=== PATIENT | male | born 1955 | race Caucasian/White ===

== ENCOUNTER 2016-11-02 22:32 | Emergency (ER) | payer MEDICARE, OTHER ==
[2016-11-02 23:46] LABS: BASO # 0.1 K/mm3 (0.0-0.2); BASO % 0.7 % (0.0-1.0); EOS # 0.6 K/mm3 (0.0-0.50); EOS % 4.5 % (0.0-3.0); LARGE UNSTAINED CELL # 0.2 K/mm3 (0.0-0.4); LARGE UNSTAINED CELL % 1.4 % (0.0-4.0); LYMPH # 1.8 K/mm3 (1.5-4.5); LYMPH % 13.1 % (24.0-44.0); MEAN CORPUSCULAR HEMOGLOBIN 31.1 pg (27.0-33.0); MEAN CORPUSCULAR HGB CONC 34.8 g/dl (32.0-36.5); MEAN CORPUSCULAR VOLUME 89.4 fl (80.0-96.0); MONO # 0.9 K/mm3 (0.0-0.8); MONO % 6.9 % (0.0-5.0); NEUTROPHILS # 9.1 K/mm3 (1.8-7.7); NEUTROPHILS % 73.3 % (36.0-66.0); PLATELET COUNT, AUTOMATED 304 k/mm3 (150-450); RED CELL DISTRIBUTION WIDTH 12.8 % (11.5-14.5); WHITE BLOOD COUNT 12.4 K/mm3 (4.0-10.0)
[2016-11-03 00:11] LABS: ANION GAP 8 MEQ/L (8-16); BLOOD UREA NITROGEN 12 MG/DL (7-18); CALCIUM LEVEL 8.4 MG/DL (8.8-10.2); CARBON DIOXIDE LEVEL 27 MEQ/L (21-32); CHLORIDE LEVEL 104 MEQ/L (98-107); CREATININE FOR GFR 1.05 MG/DL (0.70-1.30); GLOMERULAR FILTRATION RATE > 60.0 (>49); GLUCOSE, FASTING 112 MG/DL (80-110); POTASSIUM SERUM 3.9 MEQ/L (3.5-5.1); SODIUM LEVEL 139 MEQ/L (136-145)
[2016-11-03] MEDS ORDERED: KETOROLAC 30 MG/ML VIAL (J1885) As Ordered ONE (04:02)
--- NOTE | 2016-11-03 04:28 | EDDOCDS ---
Nurse's Notes [facility] Name: Mark Recinos Age: 61 yrs Sex: Male : 1955 Arrival Date: 11/02/2016 Time: 22:32 Bed 12 Private MD: NO PRIMARY PHYSICIAN, . Diagnosis: Gout;Chest pain, unspecified Presentation: 11/02 22:39 Presenting complaint: Patient states: left wrist started to get swollen this afternoon dsf and CP started tonight. Adult Sepsis Screening: The patient does not have new or worsening altered mentation. Patient's respiratory rate is less than 22. Systolic blood pressure is greater than 100. Patient has a qSOFA score of 0- Negative Sepsis Screen. Suicide/Homicide risk assessment- the patient denies having any suicidal and/or homicidal ideations and does not present with any other emotional, behavioral or mental health complaints. Status: Patient is not a member services coordinator or dependent. Transition of care: patient was not received from another setting of care. 22:39 Acuity: HARINI Level 3 dsf 22:39 Method Of Arrival: Walkin/Carried/Asstd dsf Triage Assessment: 22:41 General: Appears in no apparent distress, Behavior is appropriate for age, cooperative. dsf Pain: Location: dorsal aspect of left wrist Pain currently is 10 out of 10 on a pain scale. Quality of pain is described as throbbing. Pt Declines HIV testing. Cardiovascular: Chest pain is described as Pain is 3 out of 10 on a pain scale. quality is stabbing, is located in substernal area radiates Does not radiate. began 2 hours prior to arrival. Musculoskeletal: Range of motion limited in left wrist Swelling present in dorsal aspect of left wrist. Historical: - Allergies: PENICILLINS (vomit blood ); - Home Meds: 1. pt does not know what he takes - PMHx: Arthritis; back pain; - PSHx: none; - Social history: Smoking status: Chewing Tobacco No barriers to communication noted, The patient speaks fluent Khmer, Speaks appropriately for age. - Family history: Not pertinent. - : The pt / caregiver states he / she is not on anticoagulants. Home medication list is obtained from the patient. - Exposure Risk Screening:: None identified. Screenin:57 Screening information is obtained from the patient. Fall risk: No risks identified. mlc Assistance ADL's: requires no assistance with activities of daily living. Abuse/DV Screen: The patient / caregiver reports he/she is: not in a situation that causes fear, pain or injury. Nutritional screening: No deficits noted. Advance Directives: Currently, there is no health care proxy. There is no Power of Vice President Of News. home support is adequate. Assessment: 22:57 General: Appears in no apparent distress, uncomfortable, unkempt, Behavior is mlc cooperative. Pain: Location: left antecubital area, dorsal aspect of left forearm and left wrist Pain currently is 10 out of 10 on a pain scale. Neurological: Level of Consciousness is awake, alert, Oriented to person, place, time. Cardiovascular: Capillary refill < 3 seconds in right in left fingers Heart tones S1 S2 present Rhythm is regular Chest pain is denied. Respiratory: Airway is patent Respiratory effort is even, unlabored, Respiratory pattern is regular, Breath sounds are clear bilaterally. Derm: Skin is normal. Musculoskeletal: Capillary refill < 3 seconds Swelling present in left wrist. 23:39 Reassessment: Patient appears in no apparent distress at this time. Patient states mlc symptoms have not improved. 11/03 01:18 Reassessment: Patient appears in no apparent distress at this time. Patient states mlc symptoms have not improved. pt resting comfortably in bed, resp easy/unlabored. . 02:20 Reassessment: Patient appears in no apparent distress at this time. pt resting with mlc eyes closed, resp easy/unlabored. . 03:30 Reassessment: Patient appears in no apparent distress at this time. no changes since mlc prior. 04:05 General: Appears in no apparent distress, comfortable, to be sleeping. awakens easily. mlc resp easy/unlabored. pt medicated per order. 04:25 General: Appears in no apparent distress, comfortable, Behavior is cooperative. Pain: mlc Pain currently is 7 out of 10 on a pain scale. Neurological: Level of Consciousness is awake, alert, obeys commands, Oriented to person, place, time. Respiratory: Airway is patent Respiratory effort is even, unlabored, Respiratory pattern is regular. Vital Signs: 11/02 22:36 BP 144 / 88; Pulse 83; Resp 18 S; Temp 96.3(O); Pulse Ox 100% on R/A; Weight 99.79 kg gr2 (R); Height 5 ft. 9 in. (175.26 cm) (R); Pain 10/10; 22:54 BP 141 / 94 (auto/); mlc 22:58 Pulse 82 MON; Pulse Ox 96% ; mlc 23:36 BP 140 / 82 (auto/); mlc 23:36 Pulse 74 MON; Pulse Ox 92% ; mlc 11/03 00:06 Pulse 72 MON; Pulse Ox 94% ; mlc 00:06 BP 128 / 80 (auto/); mlc 00:36 Pulse 74 MON; Pulse Ox 94% ; mlc 00:36 BP 125 / 78 (auto/); mlc 01:06 Pulse 70 MON; Pulse Ox 94% ; mlc 01:06 BP 123 / 79 (auto/); mlc 01:18 Pulse 70 MON; Pulse Ox 94% ; mlc 01:36 BP 120 / 79 (auto/); mlc 01:36 Pulse 76 MON; Pulse Ox 94% ; mlc 02:06 BP 113 / 76 (auto/); mlc 02:06 Pulse 70 MON; Pulse Ox 94% ; mlc 02:36 BP 113 / 76 (auto/); mlc 02:36 Pulse 76 MON; Pulse Ox 94% ; mlc 03:05 Pulse 70 MON; Pulse Ox 94% ; mlc 03:06 BP 121 / 76 (auto/); mlc 03:36 BP 115 / 81 (auto/); mlc 03:36 Pulse 76 MON; Pulse Ox 96% ; mlc 03:41 Pulse 74 MON; Pulse Ox 95% ; mlc 03:41 BP 117 / 74 (auto/); mlc 03:43 BP 117 / 74; Pulse 73; Resp 18; Temp 98.3(O); Pulse Ox 96% on R/A; Pain 10/10; dianna 04:05 Pulse 64 MON; Pulse Ox 95% ; mlc 04:25 BP 122 / 75; Pulse 68; Resp 16; Temp 98.4; Pulse Ox 95% ; Pain 7/10; mlc 11/02 22:36 Body Mass Index 32.49 (99.79 kg, 175.26 cm) gr2 Vitals: 11/02 22:36 Log In Time: November 02, 2016 at 22:36. gr2 ED Course: 22:36 Patient visited by Devin Beebe. gr2 22:36 NO PRIMARY PHYSICIAN, . is Private Physician. gr2 22:36 Patient moved to Waiting gr2 22:37 Patient visited by Devin Beebe. gr2 22:37 Patient moved to Pre RCE gr2 22:40 Triage Initiated dsf 22:46 Sri Castillo RN is Primary Nurse. dsf 22:46 Patient moved to 12 dsf 22:53 Justin Carlos DO is Attending Physician. mm11 22:53 Patient visited by Justin Carlos DO. mm11 22:58 Patient visited by Sri Castillo RN. mlc 23:16 Patient visited by Justin Carlos DO. mm11 23:35 Patient visited by Emerald Escamilla PCA. dianna 23:35 Pt greeted and oriented to ED. Patient advised of names of staff involved in care, dianna location of call cano, wait times and NPO status. Patient has correct armband on for positive identification. Placed in gown. Bed in low position. Call light in reach. Side rails up X2. real estate executive assistant on. Pulse ox on. NIBP on. 23:35 EKG done. (by ED staff). Reviewed by Justin Carlos DO. dianna 23:39 Basic Metabolic Profile Sent. mlc 23:39 CBC with Diff Sent. mlc 23:39 Cardiac Injury Profile Sent. mlc 23:39 Troponin Sent. mlc 23:40 Patient visited by Sri Castillo RN. mlc 23:40 The patient / caregiver is instructed regarding the plan of care and ED course. mlc 23:40 Inserted saline lock: 20 gauge in right antecubital area and blood collected. The [facility] patient tolerated the procedure well. 11/03 00:58 Patient visited by Emerald Escamilla PCA. dianna 01:20 Patient visited by Sri Castillo RN. mlc 01:24 [facility] Payment Agreement was scanned into [employer] and attached to record. gjb 02:52 Patient visited by Justin Carlos DO. mm11 03:16 Christiano Calderon MD is Referral Physician. mm11 03:43 Patient visited by Emerald Escamilla PCA. dianna 04:06 Patient visited by Sri Castillo RN. mlc 04:25 Discontinued IV lock intact, bleeding controlled, pressure dressing applied, No mlc redness/swelling at site. No procedures done that require assistance. Administered Medications: 04:05 Drug: ketorolac 30 mg [ketorolac 30 mg/mL (1 mL) injection solution (1 mL)] Route: IVP; mlc Site: right antecubital; 04:24 Follow up: Response: Pain is decreased mlc Order Results: Lab Order: Basic Metabolic Profile; SPEC11/02/16 23:37 Test: GLUCOSE, FASTING; Value: 112; Range: 80-110; Abnormal: Above high normal; Units: MG/DL; Status: F Test: BLOOD UREA NITROGEN; Value: 12; Range: 7-18; Units: MG/DL; Status: F Test: CREATININE FOR GFR; Value: 1.05; Range: 0.70-1.30; Units: MG/DL; Status: F Test: GLOMERULAR FILTRATION RATE; Value: > 60.0; Range: >49; Status: F Test: SODIUM LEVEL; Value: 139; Range: 136-145; Units: MEQ/L; Status: F Test: POTASSIUM SERUM; Value: 3.9; Range: 3.5-5.1; Units: MEQ/L; Status: F Test: CHLORIDE LEVEL; Value: 104; Range: 98-107; Units: MEQ/L; Status: F Test: CARBON DIOXIDE LEVEL; Value: 27; Range: 21-32; Units: MEQ/L; Status: F Test: ANION GAP; Value: 8; Range: 8-16; Units: MEQ/L; Status: F Test: CALCIUM LEVEL; Value: 8.4; Range: 8.8-10.2; Abnormal: Below low normal; Units: MG/DL; Status: F Test Note: ; Units are mL/min/1.73 m2 Chronic Kidney Disease Staging per NKF: Stage I & II GFR >=60 Normal to Mildly Decreased Stage III GFR 30-59 Moderately Decreased Stage IV GFR 15-29 Severely Decreased Stage V GFR <15 Very Little GFR Left ESRD GFR <15 on MANAGER OF EXHIBITIONS AND COLLECTIONS Lab Order: CBC with Diff; SPEC11/02/16 23:37 Test: WHITE BLOOD COUNT; Value: 12.4; Range: 4.0-10.0; Abnormal: Above high normal; Units: K/mm3; Status: F Test: RED BLOOD COUNT; Value: 5.02; Range: 4.30-6.10; Units: M/mm3; Status: F Test: HEMOGLOBIN; Value: 15.6; Range: 14.0-18.0; Units: g/dl; Status: F Test: HEMATOCRIT; Value: 44.8; Range: 42.0-52.0; Units: %; Status: F Test: MEAN CORPUSCULAR VOLUME; Value: 89.4; Range: 80.0-96.0; Units: fl; Status: F Test: MEAN CORPUSCULAR HEMOGLOBIN; Value: 31.1; Range: 27.0-33.0; Units: pg; Status: F Test: MEAN CORPUSCULAR HGB CONC; Value: 34.8; Range: 32.0-36.5; Units: g/dl; Status: F Test: RED CELL DISTRIBUTION WIDTH; Value: 12.8; Range: 11.5-14.5; Units: %; Status: F Test: PLATELET COUNT, AUTOMATED; Value: 304; Range: 150-450; Units: k/mm3; Status: F Test: NEUTROPHILS %; Value: 73.3; Range: 36.0-66.0; Abnormal: Above high normal; Units: %; Status: F Test: LYMPH %; Value: 13.1; Range: 24.0-44.0; Abnormal: Below low normal; Units: %; Status: F Test: MONO %; Value: 6.9; Range: 0.0-5.0; Abnormal: Above high normal; Units: %; Status: F Test: EOS %; Value: 4.5; Range: 0.0-3.0; Abnormal: Above high normal; Units: %; Status: F Test: BASO %; Value: 0.7; Range: 0.0-1.0; Units: %; Status: F Test: LARGE UNSTAINED CELL %; Value: 1.4; Range: 0.0-4.0; Units: %; Status: F Test: NEUTROPHILS #; Value: 9.1; Range: 1.8-7.7; Abnormal: Above high normal; Units: K/mm3; Status: F Test: LYMPH #; Value: 1.8; Range: 1.5-4.5; Units: K/mm3; Status: F Test: MONO #; Value: 0.9; Range: 0.0-0.8; Abnormal: Above high normal; Units: K/mm3; Status: F Test: EOS #; Value: 0.6; Range: 0.0-0.50; Abnormal: Above high normal; Units: K/mm3; Status: F Test: BASO #; Value: 0.1; Range: 0.0-0.2; Units: K/mm3; Status: F Test: LARGE UNSTAINED CELL #; Value: 0.2; Range: 0.0-0.4; Units: K/mm3; Status: F Lab Order: Cardiac Injury Profile; [facility] 11/02/16 23:37 Test: CPK CREATINE PHOSPHOKINASE; Value: 51; Range: 39-308; Units: U/L; Status: F Test: CK-MB VALUE MASS; Value: 1.8; Range: 0.0-3.6; Units: NG/ML; Status: F Test: MB/CK RELATIVE INDEX; Value: 3.52; Range: < OR =4; Status: F Test Note: ; DIAGNOSIS CRITERIA MMB ng/ml Relative Index (RI) NON-AMI < or = 5 N/A LOREDO ZONE > 5 < or = 4 AMI > 5 > 4 Lab Order: Troponin; [facility] 11/02/16 23:37 Test: TROPONIN I; Value: < 0.02; Range: < 0.10; Units: NG/ML; Status: F Test Note: ; Troponin I Reference Interval for [employer] LOCI: 99th Percentile= 0.00-0.045 ng/ml Risk Stratification: <= 0.10 ng/ml Decreased Risk for Adverse Clinical Events. 0.10-1.50 ng/ml Increased Risk for Adverse Clinical Events. Evaluation of additional criterion and/or repeat testing in 2-6 hours is suggested to rule out myocardial damage. >= 1.50 ng/ml Indicative of Myocardial Injury. Outcome: 03:17 Discharge ordered by Provider. mm11 04:25 Discharge Assessment: Patient awake, alert and oriented x 3. No cognitive and/or mlc functional deficits noted. Patient verbalized understanding of disposition instructions. patient administered narcotics - no. The following High Risk Discharge criteria are identified: None. Discharged to home ambulatory. Condition: good Condition: stable. Discharge instructions given to patient, Instructed on discharge instructions, follow up and referral plans. medication usage, Demonstrated understanding of instructions, medications, Pt was receptive of discharge instructions/ teaching. Prescriptions given X 2. No special radiology studies were completed. Property sent home with patient. 04:[address] [facility] Signatures: Justin Carlos DO DO mm11 Emerald Escamilla, SHOE CEMENTER SHOE CEMENTER Zenaida Oseguera,RN RN Devin Miner gr2 Sri Castillo RN RN Chelita Sinclair MTDD
--- NOTE | 2016-11-03 04:28 | EDDOCDS ---
Physician Documentation [facility] Name: Mark Recinos Age: 61 yrs Sex: Male : 1955 Arrival Date: 11/02/2016 Time: 22:32 Bed 12 Private MD: NO PRIMARY PHYSICIAN, . Disposition: 11/03/16 03:17 Discharged to Home/Self Care. Impression: Gout, Chest pain, unspecified. - Condition is Stable. - Discharge Instructions: Gout, Gout, Blda-ly-Grne. - Prescriptions for Colchicine 0.6 mg Oral Tablet - take 1 tablet by ORAL route as directed take 2 tabs at gout onset, then 1 tab q1h prn x 2 doses maximum; 30 tablet. indomethacin 50 mg Oral Capsule - take 1 capsule by ORAL route 3 times per day with food; 30 capsule. - Medication Reconciliation, Local Pharmacy Hours form. - Follow up: Christiano Calderon MD; When: Call to arrange an appointment; Reason: Continuance of care. - Problem is an acute exacerbation. - Symptoms have improved. Historical: - Allergies: PENICILLINS (vomit blood ); - Home Meds: 1. pt does not know what he takes - PMHx: Arthritis; back pain; - PSHx: none; - Social history: Smoking status: Chewing Tobacco No barriers to communication noted, The patient speaks fluent Angolan, Speaks appropriately for age. - Family history: Not pertinent. - : The pt / caregiver states he / she is not on anticoagulants. Home medication list is obtained from the patient. - Exposure Risk Screening:: None identified. Vital Signs: 11/02 22:36 BP 144 / 88; Pulse 83; Resp 18 S; Temp 96.3(O); Pulse Ox 100% on R/A; Weight 99.79 kg / gr2 220 lbs (R); Height 5 ft. 9 in. (175.26 cm) (R); Pain 10/10; 22:54 BP 141 / 94 (auto/); mlc 22:58 Pulse 82 MON; Pulse Ox 96% ; mlc 23:36 BP 140 / 82 (auto/); mlc 23:36 Pulse 74 MON; Pulse Ox 92% ; mlc 11/03 00:06 Pulse 72 MON; Pulse Ox 94% ; mlc 00:06 BP 128 / 80 (auto/); mlc 00:36 Pulse 74 MON; Pulse Ox 94% ; mlc 00:36 BP 125 / 78 (auto/); mlc 01:06 Pulse 70 MON; Pulse Ox 94% ; mlc 01:06 BP 123 / 79 (auto/); mlc 01:18 Pulse 70 MON; Pulse Ox 94% ; mlc 01:36 BP 120 / 79 (auto/); mlc 01:36 Pulse 76 MON; Pulse Ox 94% ; mlc 02:06 BP 113 / 76 (auto/); mlc 02:06 Pulse 70 MON; Pulse Ox 94% ; mlc 02:36 BP 113 / 76 (auto/); mlc 02:36 Pulse 76 MON; Pulse Ox 94% ; mlc 03:05 Pulse 70 MON; Pulse Ox 94% ; mlc 03:06 BP 121 / 76 (auto/); mlc 03:36 BP 115 / 81 (auto/); mlc 03:36 Pulse 76 MON; Pulse Ox 96% ; mlc 03:41 Pulse 74 MON; Pulse Ox 95% ; mlc 03:41 BP 117 / 74 (auto/); mlc 03:43 BP 117 / 74; Pulse 73; Resp 18; Temp 98.3(O); Pulse Ox 96% on R/A; Pain 10/10; dianna 04:05 Pulse 64 MON; Pulse Ox 95% ; mlc 04:25 BP 122 / 75; Pulse 68; Resp 16; Temp 98.4; Pulse Ox 95% ; Pain 7/10; mlc 11/02 22:36 Body Mass Index 32.49 (99.79 kg, 175.26 cm) gr2 MDM: 11/02 23:17 Bracelet Former/Pulse Ox/q 30 min VS ordered. mm11 23:17 IV Saline Lock ordered. mm11 23:17 Rhythm Strip to chart ordered. mm11 23:17 Undress patient appropriately for examination ordered. mm11 23:17 Chest, 2 View (pa\E\lat) Ordered. EDMS 23:17 Basic Metabolic Profile Ordered. EDMS 23:17 CBC with Diff Ordered. EDMS 23:17 Cardiac Injury Profile Ordered. EDMS 23:17 Troponin Ordered. EDMS 23:18 ECG WITH READING ER PHYS+CARDIAG ordered. EDMS 23:19 Hand, Complete Ordered. EDMS 11/03 00:00 Financial registration complete. pm4 00:29 Basic Metabolic Profile Reviewed. mm11 00:29 CBC with Diff Reviewed. mm11 00:29 Cardiac Injury Profile Reviewed. mm11 00:29 Troponin Reviewed. mm11 01:24 [facility] Payment Agreement was scanned into [employer] and attached to record. george 03:18 ketorolac 30 mg IVP once ordered. mm11 04:05 ketorolac 30 mg IVP once ordered. mlc Administered Medications: 04:05 Drug: ketorolac 30 mg [ketorolac 30 mg/mL (1 mL) injection solution (1 mL)] Route: IVP; mlc Site: right antecubital; 04:24 Follow up: Response: Pain is decreased [facility] Signatures: Dispatcher [employer] EDMS Justin Carlos, DO mm11 Zenaida SilverRN RN dsSri Gonzalez RN RN Chelita Sinclairb Perico Bennett, Reg Reg pm4 The chart was reviewed and I authenticate all verbal orders and agree with the evaluation and treatment provided.Attachments: 01:24 [facility] Payment Agreement jia MTDD
--- NOTE | 2016-11-03 08:31 | ECGEPIP ---
Stationary ECG Study [facility] - ED Test Date: 2016-11-02 Pat Name: JACKY TERRELL Department: Room: - Gender: M Test Consultant: JenkinsB: 1955 Requested By: BRIEN Shepard Order Number: [id number] Reading MD: Teja Sequeira Measurements Intervals [place] Rate: 71 P: 33 [place]: 136 QRS: -17 QRSD: 94 T: 39 QT: 398 QTc: 435 Interpretive Statements SINUS RHYTHM NO PRIORS Electronically Signed On 11-03-2016 8:31:04 EST by Teja Sequeira
--- NOTE | 2016-11-03 08:32 | REP ---
Clinical: Chest pain . Comparison: None . Technique: PA view only . Findings: The mediastinum and cardiac silhouette are normal. The lung walters are clear and without acute consolidation, effusion, or pneumothorax. The skeletal structures are intact and normal. Impression: 1. No acute cardiopulmonary process. Signed by Florin Payton MD 11/03/2016 08:23 A
--- NOTE | 2016-11-03 08:47 | REP ---
Clinical: Trauma. Deformity/Swelling. Technique: AP, lateral, bilateral oblique views left hand. Findings: The osseous structures and joint spaces are intact and normal. There is no evidence for acute fracture or dislocation. Surrounding soft tissues are unremarkable. No subcutaneous emphysema or radiodense foreign body. Impression: No acute fracture or dislocation. Signed by Florin Payton MD 11/03/2016 08:39 A
--- NOTE | 2016-11-05 05:28 | EDDOCDS ---
Physician Documentation [facility] Name: Mark Recinos Age: 61 yrs Sex: Male : 1955 Arrival Date: 11/02/2016 Time: 22:32 Bed 12 Private MD: NO PRIMARY PHYSICIAN, . Disposition: 11/03/16 03:17 Discharged to Home/Self Care. Impression: Gout, Chest pain, unspecified. - Condition is Stable. - Discharge Instructions: Gout, Gout, Qecc-up-Npau. - Prescriptions for Colchicine 0.6 mg Oral Tablet - take 1 tablet by ORAL route as directed take 2 tabs at gout onset, then 1 tab q1h prn x 2 doses maximum; 30 tablet. indomethacin 50 mg Oral Capsule - take 1 capsule by ORAL route 3 times per day with food; 30 capsule. - Medication Reconciliation, Local Pharmacy Hours form. - Follow up: Christiano Calderon MD; When: Call to arrange an appointment; Reason: Continuance of care. - Problem is an acute exacerbation. - Symptoms have improved. Historical: - Allergies: PENICILLINS (vomit blood ); - Home Meds: 1. pt does not know what he takes - PMHx: Arthritis; back pain; - PSHx: none; - Social history: Smoking status: Chewing Tobacco No barriers to communication noted, The patient speaks fluent Tuvaluan, Speaks appropriately for age. - Family history: Not pertinent. - : The pt / caregiver states he / she is not on anticoagulants. Home medication list is obtained from the patient. - Exposure Risk Screening:: None identified. Vital Signs: 11/02 22:36 BP 144 / 88; Pulse 83; Resp 18 S; Temp 96.3(O); Pulse Ox 100% on R/A; Weight 99.79 kg / gr2 220 lbs (R); Height 5 ft. 9 in. (175.26 cm) (R); Pain 10/10; 22:54 BP 141 / 94 (auto/); mlc 22:58 Pulse 82 MON; Pulse Ox 96% ; mlc 23:36 BP 140 / 82 (auto/); mlc 23:36 Pulse 74 MON; Pulse Ox 92% ; mlc 11/03 00:06 Pulse 72 MON; Pulse Ox 94% ; mlc 00:06 BP 128 / 80 (auto/); mlc 00:36 Pulse 74 MON; Pulse Ox 94% ; mlc 00:36 BP 125 / 78 (auto/); mlc 01:06 Pulse 70 MON; Pulse Ox 94% ; mlc 01:06 BP 123 / 79 (auto/); mlc 01:18 Pulse 70 MON; Pulse Ox 94% ; mlc 01:36 BP 120 / 79 (auto/); mlc 01:36 Pulse 76 MON; Pulse Ox 94% ; mlc 02:06 BP 113 / 76 (auto/); mlc 02:06 Pulse 70 MON; Pulse Ox 94% ; mlc 02:36 BP 113 / 76 (auto/); mlc 02:36 Pulse 76 MON; Pulse Ox 94% ; mlc 03:05 Pulse 70 MON; Pulse Ox 94% ; mlc 03:06 BP 121 / 76 (auto/); mlc 03:36 BP 115 / 81 (auto/); mlc 03:36 Pulse 76 MON; Pulse Ox 96% ; mlc 03:41 Pulse 74 MON; Pulse Ox 95% ; mlc 03:41 BP 117 / 74 (auto/); mlc 03:43 BP 117 / 74; Pulse 73; Resp 18; Temp 98.3(O); Pulse Ox 96% on R/A; Pain 10/10; dianna 04:05 Pulse 64 MON; Pulse Ox 95% ; mlc 04:25 BP 122 / 75; Pulse 68; Resp 16; Temp 98.4; Pulse Ox 95% ; Pain 7/10; mlc 11/02 22:36 Body Mass Index 32.49 (99.79 kg, 175.26 cm) gr2 MDM: 11/02 23:17 Legal Office Administrator/Pulse Ox/q 30 min VS ordered. mm11 23:17 IV Saline Lock ordered. mm11 23:17 Rhythm Strip to chart ordered. mm11 23:17 Undress patient appropriately for examination ordered. mm11 23:17 Chest, 2 View (pa\E\lat) Ordered. EDMS 23:17 Basic Metabolic Profile Ordered. EDMS 23:17 CBC with Diff Ordered. EDMS 23:17 Cardiac Injury Profile Ordered. EDMS 23:17 Troponin Ordered. EDMS 23:18 ECG WITH READING ER PHYS+CARDIAG ordered. EDMS 23:19 Hand, Complete Ordered. EDMS 11/03 00:00 Financial registration complete. pm4 00:29 Basic Metabolic Profile Reviewed. mm11 00:29 CBC with Diff Reviewed. mm11 00:29 Cardiac Injury Profile Reviewed. mm11 00:29 Troponin Reviewed. mm11 01:24 [facility] Payment Agreement was scanned into [employer] and attached to record. gjb 03:18 ketorolac 30 mg IVP once ordered. mm11 04:05 ketorolac 30 mg IVP once ordered. [facility] 08:52 T-Sheet-- Draft Copy was scanned into [employer] and attached to record. jp5 11/04 11:06 ECG/EKG was scanned into [employer] and attached to record. gb Administered Medications: 11/03 04:05 Drug: ketorolac 30 mg [ketorolac 30 mg/mL (1 mL) injection solution (1 mL)] Route: IVP; mlc Site: right antecubital; 04:24 Follow up: Response: Pain is decreased mlc Signatures: Dispatcher [employer] EDMS Jessica Barry, Reg Reg gb Justin Carlos, DO mm11 Zenaida Silver RN RN dsSri Gonzalez RN RN [facility] Karen Rodgers 5 Chelita Diane gjb Perico Bennett, Reg Reg pm4 The chart was reviewed and I authenticate all verbal orders and agree with the evaluation and treatment provided.Attachments: 01:24 [facility] Payment Agreement gjb 08:52 T-Sheet-- Draft Copy 5 11/04 11:06 ECG/EKG gb Chart Complete MTDD
--- NOTE | 2016-11-05 05:28 | EDDOCDS ---
Physician Documentation [facility] Name: Mark Recinos Age: 61 yrs Sex: Male : 1955 Arrival Date: 11/02/2016 Time: 22:32 Bed 12 Private MD: NO PRIMARY PHYSICIAN, . Disposition: 11/03/16 03:17 Discharged to Home/Self Care. Impression: Gout, Chest pain, unspecified. - Condition is Stable. - Discharge Instructions: Gout, Gout, [id number]. - Prescriptions for Colchicine 0.6 mg Oral Tablet - take 1 tablet by ORAL route as directed take 2 tabs at gout onset, then 1 tab q1h prn x 2 doses maximum; 30 tablet. indomethacin 50 mg Oral Capsule - take 1 capsule by ORAL route 3 times per day with food; 30 capsule. - Medication Reconciliation, Local Pharmacy Hours form. - Follow up: Christiano Calderon MD; When: Call to arrange an appointment; Reason: Continuance of care. - Problem is an acute exacerbation. - Symptoms have improved. Historical: - Allergies: PENICILLINS (vomit blood ); - Home Meds: 1. pt does not know what he takes - PMHx: Arthritis; back pain; - PSHx: none; - Social history: Smoking status: Chewing Tobacco No barriers to communication noted, The patient speaks fluent Slovenian, Speaks appropriately for age. - Family history: Not pertinent. - : The pt / caregiver states he / she is not on anticoagulants. Home medication list is obtained from the patient. - Exposure Risk Screening:: None identified. Vital Signs: 11/02 22:36 BP 144 / 88; Pulse 83; Resp 18 S; Temp 96.3(O); Pulse Ox 100% on R/A; Weight 99.79 kg / gr2 220 lbs (R); Height 5 ft. 9 in. (175.26 cm) (R); Pain 10/10; 22:54 BP 141 / 94 (auto/); mlc 22:58 Pulse 82 MON; Pulse Ox 96% ; mlc 23:36 BP 140 / 82 (auto/); mlc 23:36 Pulse 74 MON; Pulse Ox 92% ; mlc 11/03 00:06 Pulse 72 MON; Pulse Ox 94% ; mlc 00:06 BP 128 / 80 (auto/); mlc 00:36 Pulse 74 MON; Pulse Ox 94% ; mlc 00:36 BP 125 / 78 (auto/); mlc 01:06 Pulse 70 MON; Pulse Ox 94% ; mlc 01:06 BP 123 / 79 (auto/); mlc 01:18 Pulse 70 MON; Pulse Ox 94% ; mlc 01:36 BP 120 / 79 (auto/); mlc 01:36 Pulse 76 MON; Pulse Ox 94% ; mlc 02:06 BP 113 / 76 (auto/); mlc 02:06 Pulse 70 MON; Pulse Ox 94% ; mlc 02:36 BP 113 / 76 (auto/); mlc 02:36 Pulse 76 MON; Pulse Ox 94% ; mlc 03:05 Pulse 70 MON; Pulse Ox 94% ; mlc 03:06 BP 121 / 76 (auto/); mlc 03:36 BP 115 / 81 (auto/); mlc 03:36 Pulse 76 MON; Pulse Ox 96% ; mlc 03:41 Pulse 74 MON; Pulse Ox 95% ; mlc 03:41 BP 117 / 74 (auto/); mlc 03:43 BP 117 / 74; Pulse 73; Resp 18; Temp 98.3(O); Pulse Ox 96% on R/A; Pain 10/10; dianna 04:05 Pulse 64 MON; Pulse Ox 95% ; mlc 04:25 BP 122 / 75; Pulse 68; Resp 16; Temp 98.4; Pulse Ox 95% ; Pain 7/10; mlc 11/02 22:36 Body Mass Index 32.49 (99.79 kg, 175.26 cm) gr2 MDM: 11/02 23:17 Manager Commercial Sales/Pulse Ox/q 30 min VS ordered. mm11 23:17 IV Saline Lock ordered. mm11 23:17 Rhythm Strip to chart ordered. mm11 23:17 Undress patient appropriately for examination ordered. mm11 23:17 Chest, 2 View (pa\E\lat) Ordered. EDMS 23:17 Basic Metabolic Profile Ordered. EDMS 23:17 CBC with Diff Ordered. EDMS 23:17 Cardiac Injury Profile Ordered. EDMS 23:17 Troponin Ordered. EDMS 23:18 ECG WITH READING ER PHYS+CARDIAG ordered. EDMS 23:19 Hand, Complete Ordered. EDMS 11/03 00:00 Financial registration complete. pm4 00:29 Basic Metabolic Profile Reviewed. mm11 00:29 CBC with Diff Reviewed. mm11 00:29 Cardiac Injury Profile Reviewed. mm11 00:29 Troponin Reviewed. mm11 01:24 [facility] Payment Agreement was scanned into [employer] and attached to record. gjb 03:18 ketorolac 30 mg IVP once ordered. mm11 04:05 ketorolac 30 mg IVP once ordered. [facility] [place] T-Sheet-- Draft Copy was scanned into [employer] and attached to record. jp5 11/04 11:06 ECG/EKG was scanned into [employer] and attached to record. gb Administered Medications: 11/03 04:05 Drug: ketorolac 30 mg [ketorolac 30 mg/mL (1 mL) injection solution (1 mL)] Route: IVP; mlc Site: right antecubital; 04:24 Follow up: Response: Pain is decreased mlc Signatures: Dispatcher [employer] EDMS Jessica Barry, Reg Reg gb Justin Carlos, DO mm11 Zenaida Sliver RN RN dsSri Gonzalez RN RN [facility] [place] Karen Rodgers 5 Chelita Diane gjb Perico Bennett, Reg Reg pm4 The chart was reviewed and I authenticate all verbal orders and agree with the evaluation and treatment provided.Attachments: 01:24 [facility] Payment Agreement gjb 08:52 T-Sheet-- Draft Copy 5 11/04 11:06 ECG/EKG gb Chart Complete MTDD
--- NOTE | 2016-11-05 05:28 | EDDOCDS ---
Nurse's Notes [facility] Name: Jacky Terrell Age: 61 yrs Sex: Male : 1955 Arrival Date: 11/02/2016 Time: 22:32 Bed 12 Private MD: NO PRIMARY PHYSICIAN, . Diagnosis: Gout;Chest pain, unspecified Presentation: 11/02 22:39 Presenting complaint: Patient states: left wrist started to get swollen this afternoon dsf and CP started tonight. Adult Sepsis Screening: The patient does not have new or worsening altered mentation. Patient's respiratory rate is less than 22. Systolic blood pressure is greater than 100. Patient has a qSOFA score of 0- Negative Sepsis Screen. Suicide/Homicide risk assessment- the patient denies having any suicidal and/or homicidal ideations and does not present with any other emotional, behavioral or mental health complaints. Status: Patient is not a family services coordinator or dependent. Transition of care: patient was not received from another setting of care. 22:39 Acuity: HARINI Level 3 dsf 22:39 Method Of Arrival: Walkin/Carried/Asstd dsf Triage Assessment: 22:41 General: Appears in no apparent distress, Behavior is appropriate for age, cooperative. dsf Pain: Location: dorsal aspect of left wrist Pain currently is 10 out of 10 on a pain scale. Quality of pain is described as throbbing. Pt Declines HIV testing. Cardiovascular: Chest pain is described as Pain is 3 out of 10 on a pain scale. quality is stabbing, is located in substernal area radiates Does not radiate. began 2 hours prior to arrival. Musculoskeletal: Range of motion limited in left wrist Swelling present in dorsal aspect of left wrist. Historical: - Allergies: PENICILLINS (vomit blood ); - Home Meds: 1. pt does not know what he takes - PMHx: Arthritis; back pain; - PSHx: none; - Social history: Smoking status: Chewing Tobacco No barriers to communication noted, The patient speaks fluent Tajik, Speaks appropriately for age. - Family history: Not pertinent. - : The pt / caregiver states he / she is not on anticoagulants. Home medication list is obtained from the patient. - Exposure Risk Screening:: None identified. Screenin:57 Screening information is obtained from the patient. Fall risk: No risks identified. mlc Assistance ADL's: requires no assistance with activities of daily living. Abuse/DV Screen: The patient / caregiver reports he/she is: not in a situation that causes fear, pain or injury. Nutritional screening: No deficits noted. Advance Directives: Currently, there is no health care proxy. There is no Power of Traffic Manager. home support is adequate. Assessment: 22:57 General: Appears in no apparent distress, uncomfortable, unkempt, Behavior is mlc cooperative. Pain: Location: left antecubital area, dorsal aspect of left forearm and left wrist Pain currently is 10 out of 10 on a pain scale. Neurological: Level of Consciousness is awake, alert, Oriented to person, place, time. Cardiovascular: Capillary refill < 3 seconds in right in left fingers Heart tones S1 S2 present Rhythm is regular Chest pain is denied. Respiratory: Airway is patent Respiratory effort is even, unlabored, Respiratory pattern is regular, Breath sounds are clear bilaterally. Derm: Skin is normal. Musculoskeletal: Capillary refill < 3 seconds Swelling present in left wrist. 23:39 Reassessment: Patient appears in no apparent distress at this time. Patient states mlc symptoms have not improved. 11/03 01:18 Reassessment: Patient appears in no apparent distress at this time. Patient states mlc symptoms have not improved. pt resting comfortably in bed, resp easy/unlabored. . 02:20 Reassessment: Patient appears in no apparent distress at this time. pt resting with mlc eyes closed, resp easy/unlabored. . 03:30 Reassessment: Patient appears in no apparent distress at this time. no changes since mlc prior. 04:05 General: Appears in no apparent distress, comfortable, to be sleeping. awakens easily. mlc resp easy/unlabored. pt medicated per order. 04:25 General: Appears in no apparent distress, comfortable, Behavior is cooperative. Pain: mlc Pain currently is 7 out of 10 on a pain scale. Neurological: Level of Consciousness is awake, alert, obeys commands, Oriented to person, place, time. Respiratory: Airway is patent Respiratory effort is even, unlabored, Respiratory pattern is regular. Vital Signs: 11/02 22:36 BP 144 / 88; Pulse 83; Resp 18 S; Temp 96.3(O); Pulse Ox 100% on R/A; Weight 99.79 kg gr2 (R); Height 5 ft. 9 in. (175.26 cm) (R); Pain 10/10; 22:54 BP 141 / 94 (auto/); mlc 22:58 Pulse 82 MON; Pulse Ox 96% ; mlc 23:36 BP 140 / 82 (auto/); mlc 23:36 Pulse 74 MON; Pulse Ox 92% ; mlc 11/03 00:06 Pulse 72 MON; Pulse Ox 94% ; mlc 00:06 BP 128 / 80 (auto/); mlc 00:36 Pulse 74 MON; Pulse Ox 94% ; mlc 00:36 BP 125 / 78 (auto/); mlc 01:06 Pulse 70 MON; Pulse Ox 94% ; mlc 01:06 BP 123 / 79 (auto/); mlc 01:18 Pulse 70 MON; Pulse Ox 94% ; mlc 01:36 BP 120 / 79 (auto/); mlc 01:36 Pulse 76 MON; Pulse Ox 94% ; mlc 02:06 BP 113 / 76 (auto/); mlc 02:06 Pulse 70 MON; Pulse Ox 94% ; mlc 02:36 BP 113 / 76 (auto/); mlc 02:36 Pulse 76 MON; Pulse Ox 94% ; mlc 03:05 Pulse 70 MON; Pulse Ox 94% ; mlc 03:06 BP 121 / 76 (auto/); mlc 03:36 BP 115 / 81 (auto/); mlc 03:36 Pulse 76 MON; Pulse Ox 96% ; mlc 03:41 Pulse 74 MON; Pulse Ox 95% ; mlc 03:41 BP 117 / 74 (auto/); mlc 03:43 BP 117 / 74; Pulse 73; Resp 18; Temp 98.3(O); Pulse Ox 96% on R/A; Pain 10/10; dianna 04:05 Pulse 64 MON; Pulse Ox 95% ; mlc 04:25 BP 122 / 75; Pulse 68; Resp 16; Temp 98.4; Pulse Ox 95% ; Pain 7/10; mlc 11/02 22:36 Body Mass Index 32.49 (99.79 kg, 175.26 cm) gr2 Vitals: 11/02 22:36 Log In Time: November 02, 2016 at 22:36. gr2 ED Course: 22:36 Patient visited by Devin Beebe. gr2 22:36 NO PRIMARY PHYSICIAN, . is Private Physician. gr2 22:36 Patient moved to Waiting gr2 22:37 Patient visited by Devin Beebe. gr2 22:37 Patient moved to Pre RCE gr2 22:40 Triage Initiated dsf 22:46 Sri CastilloRN is Primary Nurse. dsf 22:46 Patient moved to 12 dsf 22:53 Brien Carlos DO is Attending Physician. mm11 22:53 Patient visited by Brien Carlos DO. mm11 22:58 Patient visited by Sri Castillo RN. mlc 23:16 Patient visited by Brien Carlos DO. mm11 23:35 Patient visited by Emerald Escamilla PCA. dianna 23:35 Pt greeted and oriented to ED. Patient advised of names of staff involved in care, dianna location of call cano, wait times and NPO status. Patient has correct armband on for positive identification. Placed in gown. Bed in low position. Call light in reach. Side rails up X2. women's lacrosse coach on. Pulse ox on. NIBP on. 23:35 EKG done. (by ED staff). Reviewed by Brien Carlos DO. dianna 23:39 Basic Metabolic Profile Sent. mlc 23:39 CBC with Diff Sent. mlc 23:39 Cardiac Injury Profile Sent. mlc 23:39 Troponin Sent. mlc 23:40 Patient visited by Sri Castillo RN. mlc 23:40 The patient / caregiver is instructed regarding the plan of care and ED course. mlc 23:40 Inserted saline lock: 20 gauge in right antecubital area and blood collected. The mlc patient tolerated the procedure well. 11/03 00:58 Patient visited by Emerald Escamilla PCA. dianna 01:20 Patient visited by Sri Castillo RN. mlc 01:24 COUNT INCLUDES THE [facility] Payment Agreement was scanned into [employer] and attached to record. gjb 02:52 Patient visited by Brien Carlos DO. mm11 03:16 Christiano Calderon MD is Referral Physician. mm11 03:43 Patient visited by Emerald Escamilla PCA. dianna 04:06 Patient visited by Sri Castillo RN. mlc 04:25 Discontinued IV lock intact, bleeding controlled, pressure dressing applied, No mlc redness/swelling at site. No procedures done that require assistance. 08:38 EKG-ADULT Returned. EDMS 08:39 Chest, 2 View (pa\E\lat) Returned. EDMS 08:52 T-Sheet-- Draft Copy was scanned into [employer] and attached to record. jp5 09:13 Hand, Complete Returned. EDMS 11/04 11:06 ECG/EKG was scanned into [employer] and attached to record. gb Administered Medications: 11/03 04:05 Drug: ketorolac 30 mg [ketorolac 30 mg/mL (1 mL) injection solution (1 mL)] Route: IVP; mlc Site: right antecubital; 04:24 Follow up: Response: Pain is decreased mlc Order Results: Lab Order: Basic Metabolic Profile; SPEC'M 11/02/16 23:37 Test: GLUCOSE, FASTING; Value: 112; Range: 80-110; Abnormal: Above high normal; Units: MG/DL; Status: F Test: BLOOD UREA NITROGEN; Value: 12; Range: 7-18; Units: MG/DL; Status: F Test: CREATININE FOR GFR; Value: 1.05; Range: 0.70-1.30; Units: MG/DL; Status: F Test: GLOMERULAR FILTRATION RATE; Value: > 60.0; Range: >49; Status: F Test: SODIUM LEVEL; Value: 139; Range: 136-145; Units: MEQ/L; Status: F Test: POTASSIUM SERUM; Value: 3.9; Range: 3.5-5.1; Units: MEQ/L; Status: F Test: CHLORIDE LEVEL; Value: 104; Range: 98-107; Units: MEQ/L; Status: F Test: CARBON DIOXIDE LEVEL; Value: 27; Range: 21-32; Units: MEQ/L; Status: F Test: ANION GAP; Value: 8; Range: 8-16; Units: MEQ/L; Status: F Test: CALCIUM LEVEL; Value: 8.4; Range: 8.8-10.2; Abnormal: Below low normal; Units: MG/DL; Status: F Test Note: ; Units are mL/min/1.73 m2 Chronic Kidney Disease Staging per NKF: Stage I & II GFR >=60 Normal to Mildly Decreased Stage III GFR 30-59 Moderately Decreased Stage IV GFR 15-29 Severely Decreased Stage V GFR <15 Very Little GFR Left ESRD GFR <15 on FAX MACHINE REPAIRER Lab Order: CBC with Diff; SPEC'M 11/02/16 23:37 Test: WHITE BLOOD COUNT; Value: 12.4; Range: 4.0-10.0; Abnormal: Above high normal; Units: K/mm3; Status: F Test: RED BLOOD COUNT; Value: 5.02; Range: 4.30-6.10; Units: M/mm3; Status: F Test: HEMOGLOBIN; Value: 15.6; Range: 14.0-18.0; Units: g/dl; Status: F Test: HEMATOCRIT; Value: 44.8; Range: 42.0-52.0; Units: %; Status: F Test: MEAN CORPUSCULAR VOLUME; Value: 89.4; Range: 80.0-96.0; Units: fl; Status: F Test: MEAN CORPUSCULAR HEMOGLOBIN; Value: 31.1; Range: 27.0-33.0; Units: pg; Status: F Test: MEAN CORPUSCULAR HGB CONC; Value: 34.8; Range: 32.0-36.5; Units: g/dl; Status: F Test: RED CELL DISTRIBUTION WIDTH; Value: 12.8; Range: 11.5-14.5; Units: %; Status: F Test: PLATELET COUNT, AUTOMATED; Value: 304; Range: 150-450; Units: k/mm3; Status: F Test: NEUTROPHILS %; Value: 73.3; Range: 36.0-66.0; Abnormal: Above high normal; Units: %; Status: F Test: LYMPH %; Value: 13.1; Range: 24.0-44.0; Abnormal: Below low normal; Units: %; Status: F Test: MONO %; Value: 6.9; Range: 0.0-5.0; Abnormal: Above high normal; Units: %; Status: F Test: EOS %; Value: 4.5; Range: 0.0-3.0; Abnormal: Above high normal; Units: %; Status: F Test: BASO %; Value: 0.7; Range: 0.0-1.0; Units: %; Status: F Test: LARGE UNSTAINED CELL %; Value: 1.4; Range: 0.0-4.0; Units: %; Status: F Test: NEUTROPHILS #; Value: 9.1; Range: 1.8-7.7; Abnormal: Above high normal; Units: K/mm3; Status: F Test: LYMPH #; Value: 1.8; Range: 1.5-4.5; Units: K/mm3; Status: F Test: MONO #; Value: 0.9; Range: 0.0-0.8; Abnormal: Above high normal; Units: K/mm3; Status: F Test: EOS #; Value: 0.6; Range: 0.0-0.50; Abnormal: Above high normal; Units: K/mm3; Status: F Test: BASO #; Value: 0.1; Range: 0.0-0.2; Units: K/mm3; Status: F Test: LARGE UNSTAINED CELL #; Value: 0.2; Range: 0.0-0.4; Units: K/mm3; Status: F Lab Order: Cardiac Injury Profile; [facility]' 11/02/16 23:37 Test: CPK CREATINE PHOSPHOKINASE; Value: 51; Range: 39-308; Units: U/L; Status: F Test: CK-MB VALUE MASS; Value: 1.8; Range: 0.0-3.6; Units: NG/ML; Status: F Test: MB/CK RELATIVE INDEX; Value: 3.52; Range: < OR =4; Status: F Test Note: ; DIAGNOSIS CRITERIA MMB ng/ml Relative Index (RI) NON-AMI < or = 5 N/A [place]ONE > 5 < or = 4 AMI > 5 > 4 Lab Order: Troponin; SPEC' 11/02/16 23:37 Test: TROPONIN I; Value: < 0.02; Range: < 0.10; Units: NG/ML; Status: F Test Note: ; Troponin I Reference Interval for [employer] LOCI: 99th Percentile= 0.00-0.045 ng/ml Risk Stratification: <= 0.10 ng/ml Decreased Risk for Adverse Clinical Events. 0.10-1.50 ng/ml Increased Risk for Adverse Clinical Events. Evaluation of additional criterion and/or repeat testing in 2-6 hours is suggested to rule out myocardial damage. >= 1.50 ng/ml Indicative of Myocardial Injury. Radiology Order: Chest, 2 View (pa\E\lat) Test: Chest, 2 View (pa\E\lat) REASON FOR EXAMINATION: Chest Pain; Clinical: Chest pain .; ; Comparison: None .; ; Technique: PA view only .; ; Findings:; The mediastinum and cardiac silhouette are normal. The lung walters are clear and; without acute consolidation, effusion, or pneumothorax. The skeletal structures; are intact and normal.; ; Impression:; 1. No acute cardiopulmonary process.; ; ; Signed by; Florin Payton MD 11/03/2016 08:23 A; Radiology Order: EKG-ADULT Test: EKG-ADULT REASON FOR EXAMINATION: Chest Pain; Stationary ECG Study; [facility] - ED; ; Test Date: 2016-11-02; Pat Name: JACKY TERRELL Department:; Room: -; Gender: M Universal Worker Assisted Living: franko; : 1955 Requested By: BRIEN Shepard; Order Number: [id number] Reading MD: Teja Sequeira; Measurements; Intervals [place]; Rate: 71 P: 33; CT: 136 QRS: -17; QRSD: 94 T: 39; QT: 398; QTc: 435; Interpretive Statements; SINUS RHYTHM; NO PRIORS; Electronically Signed On 11-03-2016 8:31:04 EST by Teja Sequeira; Radiology Order: Hand, Complete Test: Hand, Complete REASON FOR EXAMINATION: Deformity/Swelling; Clinical: Trauma. Deformity/Swelling.; ; Technique: AP, lateral, bilateral oblique views left hand.; ; Findings: The osseous structures and joint spaces are intact and normal. There; is no evidence for acute fracture or dislocation. Surrounding soft tissues are; unremarkable. No subcutaneous emphysema or radiodense foreign body.; ; Impression:; No acute fracture or dislocation.; ; ; Signed by; Florin Payton MD 11/03/2016 08:39 A; Outcome: 03:17 Discharge ordered by Provider. mm11 04:25 Discharge Assessment: Patient awake, alert and oriented x 3. No cognitive and/or mlc functional deficits noted. Patient verbalized understanding of disposition instructions. patient administered narcotics - no. The following High Risk Discharge criteria are identified: None. Discharged to home ambulatory. Condition: good Condition: stable. Discharge instructions given to patient, Instructed on discharge instructions, follow up and referral plans. medication usage, Demonstrated understanding of instructions, medications, Pt was receptive of discharge instructions/ teaching. Prescriptions given X 2. No special radiology studies were completed. Property sent home with patient. 04:27 Patient left the ED. [facility] [place] Signatures: Dispatcher [employer] EDMS Jessica Barry, Reg Reg Brien Cutler, DO DO mm11 Emerald Escamilla, Zenaida Cunningham,RN RN dsf Devin Beebe gr2 Sri Castillo RN RN Karen Vasquez 5 Chelita Diane Chart Complete [facility]
== END 2016-11-03 04:27 | disposition home or self-care (01) ==
LOC: M ED 22:32
DX: R07.89 Other chest pain (principal); M10.9 Gout, unspecified; R22.32 Localized swelling, mass and lump, left upper limb; M19.90 Unspecified osteoarthritis, unspecified site; M54.9 Dorsalgia, unspecified; Z88.0 Allergy status to penicillin; F17.220 Nicotine dependence, chewing tobacco, uncomplicated
CPT/HCPCS: 36415; 71020; 73130; 80048; 82550; 82553; 84484; 85025; 93005; 93041; 96374; 99285; J1885

== ENCOUNTER 2017-04-21 15:24 | Emergency (ER) | payer MEDICARE ==
[~2017-04-21] VITALS: Ht 172.7 cm; Wt 91.8 kg
[2017-04-21] MEDS ORDERED: METH2.5TA PO (15:47)
[2017-04-21] MEDS ORDERED: HYDR200T3 PO (15:47)
[2017-04-21] MEDS ORDERED: FOLI5INJ2 SC (15:47)
[2017-04-21] MEDS ORDERED: PRED5TA PO (15:47)
[2017-04-21] MEDS ORDERED: TRAM50TA2 PO (15:47)
[2017-04-21] MEDS ORDERED: NS 1,000 ML IV ONE (18:15)
--- NOTE | 2017-04-21 18:30 | REP ---
CT Head without contrast HISTORY: Infarction COMPARISON: None There is no intraparenchymal hemorrhage, acute infarct, mass or midline shift. The ventricular system and cortical sulci are dilated consistent with minimal volume loss. There is no extra cerebral collection. There is no fracture. The visualized sinuses are clear. IMPRESSION: Minimal volume loss. Signed by Mark Guerrero MD 04/21/2017 06:21 P
[2017-04-21 18:51] LABS: BASO # 0.1 K/mm3 (0.0-0.2); BASO % 1.1 % (0.0-1.0); EOS # 0.4 K/mm3 (0.0-0.50); EOS % 3.2 % (0.0-3.0); LARGE UNSTAINED CELL # 0.3 K/mm3 (0.0-0.4); LARGE UNSTAINED CELL % 2.5 % (0.0-4.0); LYMPH # 1.7 K/mm3 (1.5-4.5); LYMPH % 11.9 % (24.0-44.0); MEAN CORPUSCULAR HEMOGLOBIN 32.4 pg (27.0-33.0); MEAN CORPUSCULAR HGB CONC 34.5 g/dl (32.0-36.5); MEAN CORPUSCULAR VOLUME 93.8 fl (80.0-96.0); MONO % 8.7 % (0.0-5.0); NEUTROPHILS # 8.4 K/mm3 (1.8-7.7); NEUTROPHILS % 72.7 % (36.0-66.0); PLATELET COUNT, AUTOMATED 268 k/mm3 (150-450); RED CELL DISTRIBUTION WIDTH 14.6 % (11.5-14.5); WHITE BLOOD COUNT 11.6 K/mm3 (4.0-10.0)
[2017-04-21 19:20] LABS: ANION GAP 8 MEQ/L (8-16); BLOOD UREA NITROGEN 12 MG/DL (7-18); CALCIUM LEVEL 8.8 MG/DL (8.8-10.2); CARBON DIOXIDE LEVEL 28 MEQ/L (21-32); CHLORIDE LEVEL 105 MEQ/L (98-107); CREATININE FOR GFR 0.88 MG/DL (0.70-1.30); GLOMERULAR FILTRATION RATE > 60.0 (>49); GLUCOSE, FASTING 88 MG/DL (80-110); POTASSIUM SERUM 4.1 MEQ/L (3.5-5.1); SODIUM LEVEL 141 MEQ/L (136-145)
--- NOTE | 2017-04-21 19:27 | REP ---
Chest two views HISTORY: Dizziness Comparison: 11/02/2016 Linear density is present in the left lower lobe consistent with atelectasis or scar. The right lung is clear. The heart is normal in size. The pulmonary vasculature is normal in appearance. Degenerative change is present in the spine. IMPRESSION: Left lower lobe atelectasis or scar. Signed by Mrak Guerrero MD 04/21/2017 07:18 P
[2017-04-21 20:34] VITALS: BP 162/97
--- NOTE | 2017-04-22 10:39 | ECGEPIP ---
Stationary ECG Study [facility] - ED Test Date: 2017-04-21 Pat Name: JACKY TERRELL Department: Room: - Gender: M Hammer Smith: rn : 1955 Requested By: CHANTE BUCHANAN PA-C Order Number: [id number] Reading MD: Rashmi Grajeda Measurements Intervals [place] Rate: 55 P: 50 CT: 157 QRS: -15 QRSD: 97 T: 17 QT: 436 QTc: 419 Interpretive Statements SINUS BRADYCARDIA MINIMAL VOLTAGE CRITERIA FOR LVH, CONSIDER NORMAL VARIANT DECREASED RATE 11/02/16 Electronically Signed On 04-22-2017 10:39:00 EDT by Rashmi Grajeda
== END 2017-04-21 20:35 | disposition home or self-care (01) ==
LOC: M ED 15:24
DX: R00.1 Bradycardia, unspecified (principal); R42 Dizziness and giddiness; I10 Essential (primary) hypertension; M06.9 Rheumatoid arthritis, unspecified; Z88.0 Allergy status to penicillin; Z79.899 Other long term (current) drug therapy

== ENCOUNTER → 2017-05-12 | Outpatient (REF) | payer MEDICARE ==
[~2017-05-12] MED LIST: FOLI5INJ2 SC; HYDR200T3 PO; METH2.5TA PO; PRED5TA PO; TRAM50TA2 PO
[2017-05-12 13:11] LABS: ADD MANUAL DIFFER YES; MEAN CORPUSCULAR HEMOGLOBIN 32.2 pg (27.0-33.0); MEAN CORPUSCULAR HGB CONC 34.1 g/dl (32.0-36.5); MEAN CORPUSCULAR VOLUME 94.3 fl (80.0-96.0); PLATELET COUNT, AUTOMATED 470 k/mm3 (150-450); RED CELL DISTRIBUTION WIDTH 13.8 % (11.5-14.5); WHITE BLOOD COUNT 12.9 K/mm3 (4.0-10.0)
[2017-05-12 13:23] LABS: FOLATE > 24.0 NG/ML; VITAMIN B12 LEVEL 435 PG/ML
[2017-05-12 13:29] LABS: ALBUMIN 3.4 GM/DL (3.2-5.2); ALBUMIN/GLOBULIN RATIO 0.89 (1.00-1.93); ALKALINE PHOSPHATASE 85 U/L (45-117); ALT/SGPT 20 U/L (12-78); ANION GAP 10 MEQ/L (8-16); AST/SGOT 13 U/L (15-37); BILIRUBIN,TOTAL 0.9 MG/DL (0.2-1.0); BLOOD UREA NITROGEN 8 MG/DL (7-18); CALCIUM LEVEL 8.5 MG/DL (8.8-10.2); CARBON DIOXIDE LEVEL 27 MEQ/L (21-32); CHLORIDE LEVEL 102 MEQ/L (98-107); CREATININE FOR GFR 0.73 MG/DL (0.70-1.30); GLOMERULAR FILTRATION RATE > 60.0 (>49); GLUCOSE, FASTING 87 MG/DL (80-110); POTASSIUM SERUM 3.8 MEQ/L (3.5-5.1); SODIUM LEVEL 139 MEQ/L (136-145); T UPTAKE 35 % (33-40); THYROXINE (T4) 9.2 UG/DL (4.5-12.0); TOTAL PROTEIN 7.2 GM/DL (6.4-8.2)
[2017-05-12 13:58] LABS: BANDS 1 % (< 11); EOSINOPHILS 1 % (0-5)
[2017-05-12 14:15] LABS: ERYTHROCYTE SEDIMENTATION RATE 51 mm/hr (0-20)
[2017-05-16 08:07] LABS: VITAMIN E LEVEL 8.3 mg/L (5.3-17.5)
== END ==
LOC: M LABNEURO 09:50
PROVIDERS: ATTEND Psychiatry & Neurology Neurology
DX: E07.9 Disorder of thyroid, unspecified (principal); F32.3 Major depressive disorder, single episode, severe with psychotic features; F41.9 Anxiety disorder, unspecified; F03.90 Unspecified dementia, unspecified severity, without behavioral disturbance, psychotic disturbance, mood disturbance, and anxiety; Z11.3 Encounter for screening for infections with a predominantly sexual mode of transmission; Z72.89 Other problems related to lifestyle

== ENCOUNTER 2018-06-01 11:26 | Emergency (ER) | payer MEDICARE ==
[2018-06-01 12:43] LABS: BASO # 0.2 10^3/uL (0.0-0.2); BASO % 1.1 % (0.0-1.0); EOS # 0.3 10^3/uL (0.0-0.50); HEMATOCRIT 40.2 % (42.0-52.0); IMMATURE GRANULOCYTE % 2.2 % (0-3.0); LYMPH # 1.3 10^3/uL (1.5-4.5); LYMPH % 9.7 % (24.0-44.0); MEAN CORPUSCULAR HEMOGLOBIN 27.5 pg (27.0-33.0); MEAN CORPUSCULAR HGB CONC 32.3 g/dl (32.0-36.5); MONO # 1.5 10^3/uL (0.0-0.8); MONO % 10.7 % (0.0-5.0); NEUTROPHILS # 10.3 10^3/uL (1.8-7.7); NEUTROPHILS % 74.3 % (36.0-66.0); PLATELET COUNT, AUTOMATED 427 10^3/uL (150-450); RED BLOOD COUNT 4.73 10^6/uL (4.30-6.10); RED CELL DISTRIBUTION WIDTH 13.2 % (11.5-14.5); WHITE BLOOD COUNT 13.9 10^3/uL (4.0-10.0)
[2018-06-01] MEDS: NS 1,000 ML IV (13:15)
[2018-06-01 13:26] LABS: ALBUMIN 2.6 GM/DL (3.2-5.2); ALBUMIN/GLOBULIN RATIO 0.62 (1.00-1.93); ALKALINE PHOSPHATASE 78 U/L (45-117); ALT/SGPT 12 U/L (12-78); ANION GAP 12 MEQ/L (8-16); AST/SGOT 11 U/L (7-37); BILIRUBIN,DIRECT 0.3 MG/DL (0.0-0.2); BLOOD UREA NITROGEN 9 MG/DL (7-18); CALCIUM LEVEL 8.5 MG/DL (8.8-10.2); CARBON DIOXIDE LEVEL 24 MEQ/L (21-32); CHLORIDE LEVEL 102 MEQ/L (98-107); CK-MB VALUE MASS < 1.0 NG/ML (<3.6); CPK CREATINE PHOSPHOKINASE 24 U/L (39-308); CREATININE FOR GFR 0.76 MG/DL (0.70-1.30); GLOMERULAR FILTRATION RATE > 60.0 (>49); GLUCOSE, FASTING 93 MG/DL (70-100); MB/CK RELATIVE INDEX 4.17 (< OR =4); POTASSIUM SERUM 3.7 MEQ/L (3.5-5.1); SODIUM LEVEL 138 MEQ/L (136-145); TOTAL PROTEIN 6.8 GM/DL (6.4-8.2); TROPONIN I < 0.02 NG/ML (< 0.10)
[2018-06-01 15:13] LABS: AMMONIA 46 uMOL/L (<32)
[2018-06-01 17:35] LABS: ETHYL ALCOHOL (ETHANOL) < 0.003 % (0.000-0.010)
[2018-06-02 09:32] LABS: BEDSIDE GLUCOSE 104 MG/DL (80-115)
[2018-06-03 00:06] LABS: Lyme Disease IgG/IgM Antibodie <0.91 ISR (0.00-0.90); Lyme Disease IgM Ab Quantitati <0.80 index (0.00-0.79)
== END 2018-06-01 17:22 | disposition home or self-care (01) ==
LOC: M ED 11:26
DX: G62.9 Polyneuropathy, unspecified (principal); R53.1 Weakness; M19.90 Unspecified osteoarthritis, unspecified site; Z82.49 Family history of ischemic heart disease and other diseases of the circulatory system; Z79.899 Other long term (current) drug therapy; Z88.0 Allergy status to penicillin
CPT/HCPCS: 70551

== ENCOUNTER 2018-08-04 08:21 | Day surgery (SDC) | payer MEDICARE ==
[2018-08-04] MEDS: NS 1,000 ML IV (06:00)
[2018-08-04] MEDS ORDERED: LIDOCAINE 2% INJ 100 MG/5 ML SDV (FOR ANES.) As Ordered (08:45)
[2018-08-04] MEDS ORDERED: PROPOFOL 200 MG/20 ML VIAL As Ordered ×2 (08:46)
[2018-08-04] MEDS ORDERED: fentaNYL 100 MCG/2 ML INJECTION (J3010) As Ordered (10:22)
== END 2018-08-04 11:45 | disposition home or self-care (01) ==
LOC: M OPP 08:21
DX: R63.4 Abnormal weight loss (principal); K21.0 Gastro-esophageal reflux disease with esophagitis; K25.9 Gastric ulcer, unspecified as acute or chronic, without hemorrhage or perforation; K92.1 Melena; K57.30 Diverticulosis of large intestine without perforation or abscess without bleeding; K64.8 Other hemorrhoids
CPT/HCPCS: 43239

== ENCOUNTER → 2018-08-19 | Outpatient (CLI) | payer MEDICARE ==
[~2018-08-19] MED LIST changes: -FOLI5INJ2 SC; +GASTROGRAFIN SOLUTION 30ML (Q9963) As Ordered; -HYDR200T3 PO; +ISOVUE-370 76% 100ML VIAL (Q9967) As Ordered; -METH2.5TA PO; -PRED5TA PO; -TRAM50TA2 PO
== END ==
LOC: M RAD 15:39
DX: K80.00 Calculus of gallbladder with acute cholecystitis without obstruction (principal); K57.30 Diverticulosis of large intestine without perforation or abscess without bleeding; R63.4 Abnormal weight loss
CPT/HCPCS: Q9963

== ENCOUNTER 2018-11-06 12:13 | Day surgery (SDC) | payer MEDICARE ==
[~2018-11-06] VITALS: Ht 175.3 cm; Wt 73.5 kg
[~2018-11-06 12:13] MED LIST changes: +FOLI1TAB11 PO; +FOLI5INJ2 SC; -GASTROGRAFIN SOLUTION 30ML (Q9963) As Ordered; +HYDR200T3 PO; -ISOVUE-370 76% 100ML VIAL (Q9967) As Ordered; +LEFL1TAB4 PO; +METH2.5T48 PO; +NS 1,000 ML IV ONE; +PANT40TA3 PO; +PRED5TA PO; +RITU50VL IV; +SERT-155 PO; +SULF1TAB PO; +TRAM50TA2 PO
[2018-11-06 13:35] VITALS: BP 130/87
--- NOTE | 2018-11-06 13:41 | ROOR ---
Patient Name: Mark Recinos Procedure Date: 11/06/2018 12:52 PM Date of : 1955 Age: 63 Room: [facility] Gender: Male Note Status: Finalized Procedure: Upper GI endoscopy Indications: Follow-up of gastric ulcer Providers: Hayden Hernadez MD Referring MD: HANNAH HUSAIN MD Requesting Provider: Medicines: Monitored Anesthesia Care Complications: No immediate complications. Procedure: Pre-Anesthesia Assessment: - Prior to the procedure, a History and Physical was performed, and patient medications and allergies were reviewed. The patient is competent. The risks and benefits of the procedure and the sedation options and risks were discussed with the patient. All questions were answered and informed consent was obtained. Patient identification and proposed procedure were verified by the physician, the nurse and the anesthesiologist in the procedure room. Mental Status Examination: alert and oriented. Airway Examination: normal oropharyngeal airway and neck mobility. Respiratory Examination: clear to auscultation. CV Examination: normal. Prophylactic Antibiotics: The patient does not require prophylactic antibiotics. Prior Anticoagulants: The patient has taken no previous anticoagulant or antiplatelet agents. ASA Grade Assessment: II - A patient with mild systemic disease. After reviewing the risks and benefits, the patient was deemed in satisfactory condition to undergo the procedure. The anesthesia plan was to use monitored anesthesia care (MAC). Immediately prior to administration of medications, the patient was re-assessed for adequacy to receive sedatives. The heart rate, respiratory rate, oxygen saturations, blood pressure, adequacy of pulmonary ventilation, and response to care were monitored throughout the procedure. The physical status of the patient was re-assessed after the procedure. The Endoscope was introduced through the mouth, and advanced to the second part of duodenum. The upper GI endoscopy was accomplished without difficulty. The patient tolerated the procedure well. Findings: A small hiatal hernia was present. Diffuse mild inflammation characterized by erythema and granularity was found in the gastric antrum. Biopsies were taken with a cold forceps for histology. Verification of patient identification for the specimen was done by the physician and nurse using the patient's name, date and medical record number. Estimated blood loss was minimal. A 30 mm non-bleeding diverticulum was found in the gastric fundus. (could be a possible paraesophageal hiatal hernia, examined inside the diverticulum - no ulceration or mass) The duodenal bulb and second portion of the duodenum were normal. Impression: - Small hiatal hernia. - Gastritis. Biopsied. - Gastric diverticulum. - Normal duodenal bulb and second portion of the duodenum. Recommendation: - Patient has a contact number available for emergencies. The signs and symptoms of potential delayed complications were discussed with the patient. Return to normal activities tomorrow. Written discharge instructions were provided to the patient. - Resume previous diet. - Continue present medications. - Await pathology results. - Follow an antireflux regimen. - Return to GI clinic in [facility] (address [address], [address] [address]) in 4 -- 6 weeks. Please call GI clinic @ [phone] for apppointment date and time. - Return to primary care physician. Hayden Hernadez MD Hayden Hernadez MD 11/06/2018 1:41:15 PM This report has been signed electronically. Number of Addenda: 0 Note Initiated On: 11/06/2018 12:52 PM Estimated Blood Loss: Estimated blood loss was minimal.
== END 2018-11-06 13:52 | disposition home or self-care (01) ==
LOC: M OPP 12:13
PROVIDERS: ATTEND Internal Medicine Gastroenterology
DX: K44.9 Diaphragmatic hernia without obstruction or gangrene (principal); K29.70 Gastritis, unspecified, without bleeding; K31.4 Gastric diverticulum

== ENCOUNTER 2021-07-23 12:19 | Emergency (ER) | payer MEDICARE ==
[~2021-07-23 12:19] MED LIST changes: -NS 1,000 ML IV ONE; +PANT40TA29 PO; -PANT40TA3 PO; -SERT-155 PO; +SERT50TA29 PO
--- OUTSIDE RECORDS SUMMARY | 2021-07-23 12:25 | CCD ---
Author Author [facility] Organization [facility] Address Unknown Phone Unavailable Care Team Providers Care Sales Correspondence Clerk Name Role Phone Kaela HUSAIN MD Unavailable Unavailable Kaela HUSAIN MD Unavailable Unavailable Kaela HUSAIN MD Unavailable Unavailable Kaela HUSAIN MD Unavailable Unavailable Kaela HUSAIN MD Unavailable Unavailable Kaela HUSAIN MD Unavailable Unavailable Kaela HUSAIN MD Unavailable Unavailable Kaela HUSAIN MD Unavailable Unavailable Kaela HUSAIN MD Unavailable Unavailable Kaela HUSAIN MD Unavailable Unavailable Kaela HUSAIN MD Unavailable Unavailable Kaela HUSAIN MD Unavailable Unavailable Kaela HUSAIN MD Unavailable Unavailable Kaela HUSAIN MD Unavailable Unavailable Kaela HUSAIN MD Unavailable Unavailable Kaela HUSAIN MD Unavailable Unavailable Kaela HUSAIN MD Unavailable Unavailable Kaela HUSAIN MD Unavailable Unavailable Kaela HUSAIN MD Unavailable Unavailable Kaela HUSAIN MD Unavailable Unavailable Kaela HUSAIN MD Unavailable Unavailable Kaela HUSAIN MD Unavailable Unavailable Kaela HUSAIN MD Unavailable Unavailable Kaela HUSAIN MD Unavailable Unavailable Kaela HUSAIN MD Unavailable Unavailable Kaela HUSAIN MD Unavailable Unavailable Kaela HUSAIN MD Unavailable Unavailable Kaela HUSAIN MD Unavailable Unavailable Kaela HUSAIN MD Unavailable Unavailable Kaela HUSAIN MD Unavailable Unavailable Kaela HUSAIN MD Unavailable Unavailable Kaela HUSAIN MD Unavailable Unavailable Kaela HUSAIN MD Unavailable Unavailable Kaela HUSAIN MD Unavailable Unavailable Kaela HUSAIN MD Unavailable Unavailable Kaela HUSAIN MD Unavailable Unavailable Kaela HUSAIN MD Unavailable Unavailable Kaela HUSAIN MD Unavailable Unavailable Kaela HUSAIN MD Unavailable Unavailable Kaela HUSAIN MD Unavailable Unavailable Kaela HUSAIN MD Unavailable Unavailable Kaela HUSAIN MD Unavailable Unavailable Kaela HUSAIN MD Unavailable Unavailable Kaela HUSAIN MD Unavailable Unavailable Kaela HUSAIN MD Unavailable Unavailable Kaela HUSAIN MD Unavailable Unavailable Kaela HUSAIN MD Unavailable Unavailable Kaela HUSAIN MD Unavailable Unavailable Kaela HUSAIN MD Unavailable Unavailable Kaela HUSAIN MD Unavailable Unavailable Kaela HUSAIN MD Unavailable Unavailable Kaela HUSAIN MD Unavailable Unavailable Kaela HUSAIN MD Unavailable Unavailable Kaela HUSAIN MD Unavailable Unavailable Kaela HUSAIN MD Unavailable Unavailable Kaela HUSAIN MD Unavailable Unavailable Kaela HUSAIN MD Unavailable Unavailable Kaela HUSAIN MD Unavailable Unavailable Kaela HUSAIN MD Unavailable Unavailable Kaela HUSAIN MD Unavailable Unavailable Kaela HUSAIN MD Unavailable Unavailable Kaela HUSAIN MD Unavailable Unavailable Kaela HUSAIN MD Unavailable Unavailable Kaela HUSAIN MD Unavailable Unavailable Kaela HUSAIN MD Unavailable Unavailable Kaela HUSAIN MD Unavailable Unavailable Kaela HUSAIN MD Unavailable Unavailable Kaela HUSAIN MD Unavailable Unavailable Kaela HUSAIN MD Unavailable Unavailable Kaela HUSAIN MD Unavailable Unavailable Kaela HUSAIN MD Unavailable Unavailable Kaela HUSAIN MD Unavailable Unavailable Kaela HUSAIN MD Unavailable Unavailable Kaela HUSAIN MD Unavailable Unavailable Kaela HUSAIN MD Unavailable Unavailable Kaela HUSAIN MD Unavailable Unavailable MCILVAIN, M PARVIZ PA Unavailable Unavailable MCILVAIN, M PARVIZ PA Unavailable Unavailable MCILVAIN, M PARVIZ PA Unavailable Unavailable MCILVAIN, M PARVIZ PA Unavailable Unavailable MCILVAIN, M PARVIZ PA Unavailable Unavailable MCILVAIN, M PARVIZ PA Unavailable Unavailable MCILVAIN, M PARVIZ PA Unavailable Unavailable MCILVAIN, M PARVIZ PA Unavailable Unavailable MCILVAIN, M PARVIZ PA Unavailable Unavailable MCILVAIN, M PARVIZ PA Unavailable Unavailable MCILVAIN, M PARVIZ PA Unavailable Unavailable MCILVAIN, M PARVIZ PA Unavailable Unavailable MCILVAIN, M PARVIZ PA Unavailable Unavailable MCILVAIN, M PARVIZ PA Unavailable Unavailable MCILVAIN, M PARVIZ PA Unavailable Unavailable MCILVAIN, M PARVIZ PA Unavailable Unavailable MCILVAIN, M PARVIZ PA Unavailable Unavailable MCILVAIN, M PARVIZ PA Unavailable Unavailable MCILVAIN, M PARVIZ PA Unavailable Unavailable MCILVAIN, M PARVIZ PA Unavailable Unavailable MCILVAIN, M PARVIZ PA Unavailable Unavailable MCILVAIN, M PARVIZ PA Unavailable Unavailable MCILVAIN, M PARVIZ PA Unavailable Unavailable MCILVAIN, M PARVIZ PA Unavailable Unavailable MCILVAIN, M PARVIZ PA Unavailable Unavailable MCILVAIN, M PARVIZ PA Unavailable Unavailable MCILVAIN, M PARVIZ PA Unavailable Unavailable MCILVAIN, M PARVIZ PA Unavailable Unavailable MCILVAIN, M PARVIZ PA Unavailable Unavailable MCILVAIN, M PARVIZ PA Unavailable Unavailable MCILVAIN, M PARVIZ PA Unavailable Unavailable MCILVAIN, M PARVIZ PA Unavailable Unavailable MCILVAIN, M PARVIZ PA Unavailable Unavailable MCILVAIN, M PARVIZ PA Unavailable Unavailable MCILVAIN, M PARVIZ PA Unavailable Unavailable MCILVAIN, M PARVIZ PA Unavailable Unavailable MCILVAIN, M PARVIZ PA Unavailable Unavailable MCILVAIN, M PARVIZ PA Unavailable Unavailable MCILVAIN, M PARVIZ PA Unavailable Unavailable MCILVAIN, M PARVIZ PA Unavailable Unavailable MCILVAIN, M PARVIZ PA Unavailable Unavailable MCILVAIN, M PARVIZ PA Unavailable Unavailable MCILVAIN, M PARVIZ PA Unavailable Unavailable MCILVAIN, M PARVIZ PA Unavailable Unavailable MCILVAIN, M PARVIZ PA Unavailable Unavailable MCILVAIN, M PARVIZ PA Unavailable Unavailable MCILVAIN, M PARVIZ PA Unavailable Unavailable MCILVAIN, M PARVIZ PA Unavailable Unavailable MCILVAIN, M PARVIZ PA Unavailable Unavailable MCILVAIN, M PARVIZ PA Unavailable Unavailable MCILVAIN, M PARVIZ PA Unavailable Unavailable MCILVAIN, M PARVIZ PA Unavailable Unavailable MCILVAIN, M PARVIZ PA Unavailable Unavailable MCILVAIN, M PARVIZ PA Unavailable Unavailable MCILVAIN, M PARVIZ PA Unavailable Unavailable MCILVAIN, M PARVIZ PA Unavailable Unavailable MCILVAIN, M PARVIZ PA Unavailable Unavailable MCILVAIN, M PARVIZ PA Unavailable Unavailable MCILVAIN, M PARVIZ PA Unavailable Unavailable MCILVAIN, M PARVIZ PA Unavailable Unavailable MCILVAIN, M PARVIZ PA Unavailable Unavailable MCILVAIN, M PARVIZ PA Unavailable Unavailable MCILVAIN, M PARVIZ PA Unavailable Unavailable MCILVAIN, M PARVIZ PA Unavailable Unavailable Harris Kika, A Jaida PA Unavailable Unavailable Harris Kika, A Jaida PA Unavailable Unavailable Harris Kika, A Jaida PA Unavailable Unavailable Harris Kika, A Jaida PA Unavailable Unavailable Harris Kika, A Jaida PA Unavailable Unavailable Harris Kika, A Jaida PA Unavailable Unavailable Harris Kika, A Jaida PA Unavailable Unavailable Harris Kika, A Jaida PA Unavailable Unavailable Harris Kika, A Jaida PA Unavailable Unavailable Harris Kika, A Jaida PA Unavailable Unavailable Harris Kika, A Jaida PA Unavailable Unavailable Harris Kika, A Jaiad PA Unavailable Unavailable Harris Kika, A Jaida PA Unavailable Unavailable Harris Kika, A Jaida PA Unavailable Unavailable Harris Kika, A Jaida PA Unavailable Unavailable Harris Kika, A Jaida PA Unavailable Unavailable Harris Kika, A Jaida PA Unavailable Unavailable Harris Kika, A Jaida PA Unavailable Unavailable Harris Kika, A Jaida PA Unavailable Unavailable Harris Kika, A Jaida PA Unavailable Unavailable Harris Kika, A Jaida PA Unavailable Unavailable Harris Kika, A Jaida PA Unavailable Unavailable Harris Kika, A Jaida PA Unavailable Unavailable Harris Kika, A Jaida PA Unavailable Unavailable Harris Kika, A Jaida PA Unavailable Unavailable Harris Kika, A Jaida PA Unavailable Unavailable Harris Kika, A Jaida PA Unavailable Unavailable Harris Kika, A Jaida PA Unavailable Unavailable Harris Kika, A Jaida PA Unavailable Unavailable Harris Kika, A Jaida PA Unavailable Unavailable Harris Kika, A Jaida PA Unavailable Unavailable Harris Kkia, A Jaida PA Unavailable Unavailable Harris Kika, A Jaida PA Unavailable Unavailable Harris Kika, A Jaida PA Unavailable Unavailable Harris Kika, A Jaida PA Unavailable Unavailable Harris Kika, A Jaida PA Unavailable Unavailable Harris Kika, A Jaida PA Unavailable Unavailable Harris Kika, A Jaida PA Unavailable Unavailable Harris Kika, A Jaida PA Unavailable Unavailable Harris Kika, A Jaida PA Unavailable Unavailable Harris Kika, A Jaida PA Unavailable Unavailable Harris Kika, A Jaida PA Unavailable Unavailable Harris Kika, A Jaida PA Unavailable Unavailable Harris Kika, A Jaida PA Unavailable Unavailable Harris Kika, A Jaida PA Unavailable Unavailable Harris Kika, A Jaida PA Unavailable Unavailable Harris Kika, A Jaida PA Unavailable Unavailable Harris Kika, A Jaida PA Unavailable Unavailable Harris Kika, A Jaida PA Unavailable Unavailable Harris Kika, A Jaida PA Unavailable Unavailable Harris Kika, A Jaida PA Unavailable Unavailable Ibis Fields HEAD BANQUET WAITRESS Unavailable Unavailable Tibbits, Ibis Bella HEAD BANQUET WAITRESS Unavailable Unavailable Tibbits, Ibis Bella HEAD BANQUET WAITRESS Unavailable Unavailable Tibbits, Ibis Bella HEAD BANQUET WAITRESS Unavailable Unavailable Tibbits, Ibis Bella HEAD BANQUET WAITRESS Unavailable Unavailable Tibbits, Ibis Bella HEAD BANQUET WAITRESS Unavailable Unavailable Tibbits, Ibis Bella HEAD BANQUET WAITRESS Unavailable Unavailable Tibbits, Ibis Bella HEAD BANQUET WAITRESS Unavailable Unavailable Tibbits, Ibis Bella HEAD BANQUET WAITRESS Unavailable Unavailable Tibbits, Ibis Bella HEAD BANQUET WAITRESS Unavailable Unavailable Tibbits, Ibis Bella HEAD BANQUET WAITRESS Unavailable Unavailable Tibbits, Ibis Bella HEAD BANQUET WAITRESS Unavailable Unavailable Tibbits, Ibis Bella HEAD BANQUET WAITRESS Unavailable Unavailable Tibbits, Ibis Bella HEAD BANQUET WAITRESS Unavailable Unavailable Tibbits, Ibis Bella HEAD BANQUET WAITRESS Unavailable Unavailable Tibbits, Ibis Bella HEAD BANQUET WAITRESS Unavailable Unavailable Tibbits, Ibis Bella HEAD BANQUET WAITRESS Unavailable Unavailable Tibbits, Ibis Bella HEAD BANQUET WAITRESS Unavailable Unavailable Tibbits, Ibis Bella HEAD BANQUET WAITRESS Unavailable Unavailable Tibbits, Ibis Bella HEAD BANQUET WAITRESS Unavailable Unavailable Tibbits, Ibis Bella HEAD BANQUET WAITRESS Unavailable Unavailable Tibbits, Ibis Bella HEAD BANQUET WAITRESS Unavailable Unavailable Tibbits, Ibis Bella HEAD BANQUET WAITRESS Unavailable Unavailable Tibbits, Ibis Bella HEAD BANQUET WAITRESS Unavailable Unavailable Tibbits, Ibis Bella HEAD BANQUET WAITRESS Unavailable Unavailable Tibbits, Ibis Bella HEAD BANQUET WAITRESS Unavailable Unavailable Tibbits, Ibis Bella HEAD BANQUET WAITRESS Unavailable Unavailable Tibbits, Ibis Bella HEAD BANQUET WAITRESS Unavailable Unavailable Tibbits, Ibis Bella HEAD BANQUET WAITRESS Unavailable Unavailable Tibbits, Ibis Bella HEAD BANQUET WAITRESS Unavailable Unavailable Tibbits, Ibis Bella HEAD BANQUET WAITRESS Unavailable Unavailable Tibbits, Ibsi Bella HEAD BANQUET WAITRESS Unavailable Unavailable Tibbits, Ibis Bella HEAD BANQUET WAITRESS Unavailable Unavailable Tibbits, Ibis Bella HEAD BANQUET WAITRESS Unavailable Unavailable Tibbits, Ibis Bella HEAD BANQUET WAITRESS Unavailable Unavailable Tibbits, Ibis Bella HEAD BANQUET WAITRESS Unavailable Unavailable Tibbits, Ibis Bella HEAD BANQUET WAITRESS Unavailable Unavailable Tibbits, Ibis Bella HEAD BANQUET WAITRESS Unavailable Unavailable Tibbits, Ibis Eblla HEAD BANQUET WAITRESS Unavailable Unavailable Tibbits, Ibis Bella HEAD BANQUET WAITRESS Unavailable Unavailable Tibbits, Ibis Bella HEAD BANQUET WAITRESS Unavailable Unavailable Tibbits, Ibis Bella HEAD BANQUET WAITRESS Unavailable Unavailable KHAIRALLAH, RAMZI MD Unavailable Unavailable KHAIRALLAH, RAMZI MD Unavailable Unavailable KHAIRALLAH, RAMZI MD Unavailable Unavailable KHAIRALLAH, RAMZI MD Unavailable Unavailable KHAIRALLAH, RAMZI MD Unavailable Unavailable KHAIRALLAH, RAMZI MD Unavailable Unavailable KHAIRALLAH, RAMZI MD Unavailable Unavailable KHAIRALLAH, RAMZI MD Unavailable Unavailable KHAIRALLAH, RAMZI MD Unavailable Unavailable KHAIRALLAH, RAMZI MD Unavailable Unavailable KHAIRALLAH, RAMZI MD Unavailable Unavailable KHAIRALLAH, RAMZI MD Unavailable Unavailable KHAIRALLAH, RAMZI MD Unavailable Unavailable KHAIRALLAH, RAMZI MD Unavailable Unavailable KHAIRALLAH, RAMZI MD Unavailable Unavailable KHAIRALLAH, RAMZI MD Unavailable Unavailable KHAIRALLAH, RAMZI MD Unavailable Unavailable KHAIRALLAH, RAMZI MD Unavailable Unavailable KHAIRALLAH, RAMZI MD Unavailable Unavailable KHAIRALLAH, RAMZI MD Unavailable Unavailable KHAIRALLAH, RAMZI MD Unavailable Unavailable KHAIRALLAH, RAMZI MD Unavailable Unavailable KHAIRALLAH, RAMZI MD Unavailable Unavailable KHAIRALLAH, RAMZI MD Unavailable Unavailable KHAIRALLAH, RAMZI MD Unavailable Unavailable KHAIRALLAH, RAMZI MD Unavailable Unavailable KHAIRALLAH, RAMZI MD Unavailable Unavailable KHAIRALLAH, RAMZI MD Unavailable Unavailable KHAIRALLAH, RAMZI MD Unavailable Unavailable KHAIRALLAH, RAMZI MD Unavailable Unavailable KHAIRALLAH, RAMZI MD Unavailable Unavailable KHAIRALLAH, RAMZI MD Unavailable Unavailable KHAIRALLAH, RAMZI MD Unavailable Unavailable KHAIRALLAH, RAMZI MD Unavailable Unavailable KHAIRALLAH, RAMZI MD Unavailable Unavailable KHAIRALLAH, RAMZI MD Unavailable Unavailable KHAIRALLAH, RAMZI MD Unavailable Unavailable KHAIRALLAH, RAMZI MD Unavailable Unavailable KHAIRALLAH, RAMZI MD Unavailable Unavailable KHAIRALLAH, RAMZI MD Unavailable Unavailable KHAIRALLAH, RAMZI MD Unavailable Unavailable KHAIRALLAH, RAMZI MD Unavailable Unavailable KHAIRALLAH, RAMZI MD Unavailable Unavailable KHAIRALLAH, RAMZI MD Unavailable Unavailable KHAIRALLAH, RAMZI MD Unavailable Unavailable KHAIRALLAH, RAMZI MD Unavailable Unavailable KHAIRALLAH, RAMZI MD Unavailable Unavailable KHAIRALLAH, RAMZI MD Unavailable Unavailable KHAIRALLAH, RAMZI MD Unavailable Unavailable KHAIRALLAH, RAMZI MD Unavailable Unavailable KHAIRALLAH, RAMZI MD Unavailable Unavailable KHAIRALLAH, RAMZI MD Unavailable Unavailable KHAIRALLAH, RAMZI MD Unavailable Unavailable KHAIRALLAH, RAMZI MD Unavailable Unavailable KHAIRALLAH, RAMZI MD Unavailable Unavailable KHAIRALLAH, RAMZI MD Unavailable Unavailable KHAIRALLAH, RAMZI MD Unavailable Unavailable KHAIRALLAH, RAMZI MD Unavailable Unavailable KHAIRALLAH, RAMZI MD Unavailable Unavailable KHAIRALLAH, RAMZI MD Unavailable Unavailable KHAIRALLAH, RAMZI MD Unavailable Unavailable KHAIRALLAH, RAMZI MD Unavailable Unavailable KHAIRALLAH, RAMZI MD Unavailable Unavailable KHAIRALLAH, RAMZI MD Unavailable Unavailable KHAIRALLAH, RAMZI MD Unavailable Unavailable KHAIRALLAH, RAMZI MD Unavailable Unavailable KHAIRALLAH, RAMZI MD Unavailable Unavailable KHAIRALLAH, RAMZI MD Unavailable Unavailable KHAIRALLAH, RAMZI MD Unavailable Unavailable KHAIRALLAH, RAMZI MD Unavailable Unavailable KHAIRALLAH, RAMZI MD Unavailable Unavailable KHAIRALLAH, RAMZI MD Unavailable Unavailable KHAIRALLAH, RAMZI MD Unavailable Unavailable KHAIRALLAH, RAMZI MD Unavailable Unavailable KHAIRALLAH, RAMZI MD Unavailable Unavailable KHAIRALLAH, RAMZI MD Unavailable Unavailable KHAIRALLAH, RAMZI MD Unavailable Unavailable KHAIRALLAH, RAMZI MD Unavailable Unavailable KHAIRALLAH, RAMZI MD Unavailable Unavailable KHAIRALLAH, RAMZI MD Unavailable Unavailable KHAIRALLAH, RAMZI MD Unavailable Unavailable KHAIRALLAH, RAMZI MD Unavailable Unavailable KHAIRALLAH, RAMZI MD Unavailable Unavailable KHAIRALLAH, RAMZI MD Unavailable Unavailable KHAIRALLAH, RAMZI MD Unavailable Unavailable KHAIRALLAH, RAMZI MD Unavailable Unavailable KHAIRALLAH, RAMZI MD Unavailable Unavailable KHAIRALLAH, RAMZI MD Unavailable Unavailable Xiao Reyna MD Unavailable Unavailable Xiao Reyna MD Unavailable Unavailable Xiao Reyna MD Unavailable Unavailable Xiao Reyna MD Unavailable Unavailable Xiao Reyna MD Unavailable Unavailable Xiao Reyna MD Unavailable Unavailable Xiao Reyna MD Unavailable Unavailable Xiao Reyna MD Unavailable Unavailable Xiao Reyna MD Unavailable Unavailable Xiao Reyna MD Unavailable Unavailable Xiao Reyna MD Unavailable Unavailable Xiao Reyna MD Unavailable Unavailable Xiao Reyna MD Unavailable Unavailable Xiao Reyna MD Unavailable Unavailable Xiao Reyna MD Unavailable Unavailable Abdulky, Xiao MD Unavailable Unavailable Abdulky, Xiao MD Unavailable Unavailable Abdulky, Xiao MD Unavailable Unavailable Abdulky, Xiao MD Unavailable Unavailable Abdulky, Xiao MD Unavailable Unavailable Abdulky, Xiao MD Unavailable Unavailable Abdulky, Xiao MD Unavailable Unavailable Abdulky, Xiao MD Unavailable Unavailable Abdulky, Xiao MD Unavailable Unavailable Abdulky, Xiao MD Unavailable Unavailable Abdulky, Xiao MD Unavailable Unavailable Abdulky, Xiao MD Unavailable Unavailable Abdulky, Xiao MD Unavailable Unavailable Abdulky, Xiao MD Unavailable Unavailable Abdulky, Xiao MD Unavailable Unavailable Abdulky, Xiao MD Unavailable Unavailable Abdulky, Xiao MD Unavailable Unavailable Abdulky, Xiao MD Unavailable Unavailable Abdulky, Xiao MD Unavailable Unavailable Abdulky, Xiao MD Unavailable Unavailable Abdulky, Xiao MD Unavailable Unavailable Abdulky, Xiao MD Unavailable Unavailable Abdulky, Xiao MD Unavailable Unavailable Abdulky, Xiao MD Unavailable Unavailable Abdulky, Xiao MD Unavailable Unavailable Abdulky, Xiao MD Unavailable Unavailable Abdulky, Xiao MD Unavailable Unavailable Abdulky, Xiao MD Unavailable Unavailable Abdulky, Xiao MD Unavailable Unavailable Abdulky, Xiao MD Unavailable Unavailable Abdulky, Xiao MD Unavailable Unavailable Abdulky, Xiao MD Unavailable Unavailable Abdulky, Xiao MD Unavailable Unavailable Abdulky, Xiao MD Unavailable Unavailable Abdulky, Xiao MD Unavailable Unavailable Abdulky, Xiao MD Unavailable Unavailable Abdulky, Xiao MD Unavailable Unavailable Abdulky, Xiao MD Unavailable Unavailable Abdulky, Xiao MD Unavailable Unavailable Abdulky, Xiao MD Unavailable Unavailable Abdulky, Xiao MD Unavailable Unavailable Abdulky, Xiao MD Unavailable Unavailable Abdulky, Xiao MD Unavailable Unavailable Abdulky, Xiao MD Unavailable Unavailable Abdulky, Xiao MD Unavailable Unavailable Abdulky, Xiao MD Unavailable Unavailable Abdulky, Xiao MD Unavailable Unavailable Abdulky, Xiao MD Unavailable Unavailable Abdulky, Xiao MD Unavailable Unavailable Abdulky, Xiao MD Unavailable Unavailable Abdulky, Xiao MD Unavailable Unavailable Abdulky, Xiao MD Unavailable Unavailable Abdulky, Xiao MD Unavailable Unavailable Abdulky, Xiao MD Unavailable Unavailable Abdulky, Xiao MD Unavailable Unavailable Abdulky, Xiao MD Unavailable Unavailable Abdulky, Xiao MD Unavailable Unavailable Abdulky, Xiao MD Unavailable Unavailable Abdulky, Xiao MD Unavailable Unavailable Abdulky, Xiao MD Unavailable Unavailable Abdulky, Xiao MD Unavailable Unavailable Abdulky, Xiao MD Unavailable Unavailable Abdulky, Xiao MD Unavailable Unavailable Abdulky, Xiao MD Unavailable Unavailable Abdulky, Xiao MD Unavailable Unavailable Abdulky, Xiao MD Unavailable Unavailable Abdulky, Xiao MD Unavailable Unavailable Abdulky, Xiao MD Unavailable Unavailable Abdulky, Xiao MD Unavailable Unavailable Abdulky, Xiao MD Unavailable Unavailable Abdulky, Xiao MD Unavailable Unavailable Abdulky, Xiao MD Unavailable Unavailable Abdulky, Xiao MD Unavailable Unavailable Abdulky, Xiao MD Unavailable Unavailable Abdulky, Xiao MD Unavailable Unavailable Abdulky, Xiao MD Unavailable Unavailable Abdulky, Xiao MD Unavailable Unavailable Abdulky, Xiao MD Unavailable Unavailable Abdulky, Xiao MD Unavailable Unavailable Abdulky, Xiao MD Unavailable Unavailable Abdulky, Xiao MD Unavailable Unavailable Abdulky, Xiao MD Unavailable Unavailable Abdulky, Xiao MD Unavailable Unavailable Abdulky, Xiao MD Unavailable Unavailable Abdulky, Xiao MD Unavailable Unavailable Abdulky, Xiao MD Unavailable Unavailable Abdulky, Xiao MD Unavailable Unavailable Abdulky, Xiao MD Unavailable Unavailable Abdulky, Xiao MD Unavailable Unavailable Abdulky, Xiao MD Unavailable Unavailable Abdulky, Xiao MD Unavailable Unavailable Re-disclosure Warning The records that you are about to access may contain information from federally-assisted alcohol or drug abuse programs. If such information is present, then the following federally mandated warning applies: This information has been disclosed to you from records protected by federal confidentiality rules (42 CFR part 2). The federal rules prohibit you from making any further disclosure of this information unless further disclosure is expressly permitted by the written consent of the person to whom it pertains or as otherwise permitted by 42 CFR part 2. A general authorization for the release of medical or other information is NOT sufficient for this purpose. The Federal rules restrict any use of the information to criminally investigate or prosecute any alcohol or drug abuse patient.The records that you are about to access may contain highly sensitive health information, the redisclosure of which is protected by Article 27-F of the [facility] Public Health law. If you continue you may have access to information: Regarding HIV / AIDS; Provided by facilities licensed or operated by the [facility] Office of Mental Health; or Provided by the [facility] Office for People With Developmental Disabilities. If such information is present, then the following [facility] mandated warning applies: This information has been disclosed to you from confidential records which are protected by state law. State law prohibits you from making any further disclosure of this information without the specific written consent of the person to whom it pertains, or as otherwise permitted by law. Any unauthorized further disclosure in violation of state law may result in a fine or halfway sentence or both. A general authorization for the release of medical or other information is NOT sufficient authorization for further disc losure. Family History Family Member Name Family Member Gender Family Member Status Date o f Status Description Data Source(s) Unknown Unknown Problem [facility] ([facility], ) Unknown Male Problem (finding) 01/10/2017 12:00:00 AM EDT [facility] ([facility]) Unknown Male Problem (finding) 01/10/2017 12:00:00 AM EDT [facility] ([facility]) Unknown Male Problem (finding) 01/10/2017 12:00:00 AM EDT [facility] ([facility]) Unknown Male Problem (finding) 01/10/2017 12:00:00 AM EDT [facility] ([facility]) Encounters Encounter Providers Location Date Indications Data Source(s ) Outpatient Attender: HANNAH HUSAIN MD [facility] 11/2020 01:00:00 PM EDT [facility] ([facility] Attender: Xiao Reyna MD [facility] 02/19/2021 10:00:00 AM EDT - 02/19/2021 10:00:00 AM EDT Rheumatoid arthritis with rheumatoid fac tor of multiple sites without organ or systems involvement [facility] ([facility]) Rheumatoid arthritis with rheumatoid fac tor of multiple sites without organ or systems involvement Attender: Jaida VALENTIN [facility] 02/13/2021 12:17:00 PM EDT - 02/13/2021 12:17:00 PM EDT [facility] ( [facility]) Attender: Bella DIAP [facility] 02/09/2021 11:34:00 AM EDT - 02/09/2021 11:34:00 AM EDT [facility] ( [facility]) Attender: Xiao Reyna [facility] 02/09/2021 11:15:00 AM EDT - 02/09/2021 11:15:00 AM EDT [facility] ([facility]) Attender: Jaida VALENTIN [facility] 02/09/2021 11:15:00 AM EDT - 02/09/2021 11:15:00 AM EDT [facility] ( [facility]) Attender: MERRILL JACOBSEN [facility] 01/18/2021 01:20:00 PM EDT - 01/18/2021 01:20:00 PM EDT Rheumatoid arthritis with rheumatoid factor of multiple sites without organ or systems involvement [facility] ([facility]) Rheumatoid arthritis with rheumatoid fac tor of multiple sites without organ or systems involvement Attender: Jaida VALENTIN [facility] [facility] 01/17/2021 09:03:00 AM EDT - 01/17/2021 09:03:00 AM EDT [facility] OFFICE/OUTPATIENT VISIT, ESTOutpatient Attender: Jaida VALENTIN [facility] 01/12/2021 01:20:00 PM EDT - 01/12/2021 01:20:00 PM EDT Other fpc (current) drug therapyTr emor, unspecifiedRheumatoid arthritis with rheumatoid factor of multiple sites without organ or systems involvement [facility] ([facility]) Other computer terminal operator (current) drug therapy Tremor, unspecified Rheumatoid arthritis with rheumatoid fac tor of multiple sites without organ or systems involvement Attender: Xiao Reyna MD [facility] 12/21/2020 12:40:00 PM EDT - 12/21/2020 12:40:00 PM EDT Rheumatoid arthritis with rheumatoid fac tor of multiple sites without organ or systems involvement [facility] ([facility]) Rheumatoid arthritis with rheumatoid fac tor of multiple sites without organ or systems involvement Attender: PARVIZ VALENTIN [facility] 12/19/2020 03:09:00 PM EDT - 12/19/2020 03:09:00 PM EDT [facility] ( [facility]) Attender: Xiao Reyna MD [facility] 11/22/2020 01:08:00 PM EST - 11/22/2020 01:08:00 PM EST [facility] ([facility]) Attender: MERIRLL JACOBSEN [facility] 11/22/2020 11:20:00 AM EST - 11/22/2020 11:20:00 AM EST Rheumatoid arthritis with rheumatoid factor of multiple sites without organ or systems involvement [facility] ([facility]) Rheumatoid arthritis with rheumatoid fac tor of multiple sites without organ or systems involvement Attender: Xiao Reyna MD [facility] 11/20/2020 03:02:00 PM EST - 11/20/2020 03:02:00 PM EST [facility] ([facility]) [facility]: [facility]/24/2020 10:33:00 AM EST - 10/24/2020 10:33:00 AM EST [facility] ([facility]) Attender: Bella ROBB [facility] 10/24/2020 10:33:00 AM EST - 10/24/2020 10:33:00 AM EST [facility] ( [facility]) [facility] 10/20/2020 10:40:00 AM EST - 10/20/2020 10:40:00 AM EST Rheumatoid arthritis with rheumatoid fac tor of multiple sites without organ or systems involvement [facility] ([facility]) Rheumatoid arthritis with rheumatoid fac tor of multiple sites without organ or systems involvement Attender: PARVIZ VALENTIN [facility] 10/18/2020 02:27:00 PM EST - 10/18/2020 02:27:00 PM EST [facility] ( [facility]) Outpatient Attender: HANNAH HUSAIN MD [place] [facility] 12:00:00 PM EST [facility] ([facility] OFFICE/OUTPATIENT VISIT, ESTOutpatient Attender: PARVIZ VALENTIN [facility] 09/27/2020 11:16:00 AM EST - 09/27/2020 11:16:00 AM ES T Other fpc (current) drug therapyRheumatoid arthritis with rheumatoid factor of multiple sites without organ or systems involvement [facility] ([facility]) Other fpc (current) drug therapy Rheumatoid arthritis with rheumatoid fac tor of multiple sites without organ or systems involvement [facility]: [facility] 09/21/2020 11:40:00 AM EST - 09/21/2020 11:40:00 AM EST Rheumatoid arthritis with rheumatoid fac tor of multiple sites without organ or systems involvement [facility] ([facility]) Rheumatoid arthritis with rheumatoid fac tor of multiple sites without organ or systems involvement Attender: Bella Fields [facility] 09/19/2020 10:38:00 AM EST - 09/19/2020 10:38:00 AM EST [facility] ( [facility]) Attender: Bella Fields [facility] 08/15/2020 09:31:00 AM EST - 08/15/2020 09:31:00 AM EST [facility] ( [facility]) Attender: Xiao Reyna MD [facility] 07/13/2020 12:00:00 PM EDT - 07/13/2020 12:00:00 PM EDT Rheumatoid arthritis with rheumatoid fac tor of multiple sites without organ or systems involvement [facility] ([facility]) Rheumatoid arthritis with rheumatoid fac tor of multiple sites without organ or systems involvement Attender: Bella Fields [facility] 06/27/2020 11:40:00 AM EDT - 06/27/2020 11:40:00 AM EDT Tremor, unspecifiedRheumatoid arthritis with rheumatoid factor of multiple sites without organ or systems involvementOther fpc (current) drug therapyDorsalgia, unspecified [facility] ([facility]) Tremor, unspecified Rheumatoid arthritis with rheumatoid fac tor of multiple sites without organ or systems involvement Other computer terminal operator (current) drug therapy Dorsalgia, unspecified Attender: MERRILL JACOBSEN [facility] 06/14/2020 01:00:00 PM EDT - 06/14/2020 01:00:00 PM EDT Rheu arthritis w rheu factor mult site w/o org/sys involv [facility] ([facility]) Rheu arthritis w rheu factor mult site w /o org/sys involv Immunizations Vaccine Date Status Description Data Source(s) Covid 19 Moderna Vaccine 12/22/2020 12:00:00 AM EDT completed Covid 19 Moderna Vaccine [facility] ([facility]) Source: Other Provider COVID-19 VACCINE Moderna 12/22/2020 12:00:00 AM EDT completed NYSIIS Vaccine Series Complete: YESThis Data wa s Submitted to [facility] Via [employer]. Covid 19 Moderna Vaccine 11/24/2020 12:00:00 AM EST completed Covid 19 Moderna Vaccine [facility] ([facility]) Source: Other Provider COVID-19 VACCINE Moderna 11/24/2020 12:00:00 AM EST completed NYSIIS Vaccine Series Complete: NOThis Data was Submitted to [facility] Via [employer]. pneumococcal polysaccharide PPV23 10/11/2020 11:56:00 AM EST comple lucila [facility] ([facility] Influenza, injectable, MDCK, preservative free, myrna valent 07/19/2020 12:00:00 AM EST completed Flucelvax [facility] ([facility]) Note: approx ; Source: Other Provider Medications Medication Brand Name Start Date Product Form Dose Route Admi nistrative Instructions Pharmacy Instructions Status Indications Reaction Description Data Source(s) 5 mg 02/20/2021 12:00:00 AM EDT tablet 30 TAKE ONE TABLET BY MOUTH EVERY DAY TAKE ONE TABLET BY MOUTH EVERY DAY SOLD: 05/17/2021 [facility] 5 mg 02/20/2021 12:00:00 AM EDT tablet 30 TAKE ONE TABLET BY MOUTH EVERY DAY TAKE ONE TABLET BY MOUTH EVERY DAY SOLD: 02/25/2021 [facility] 5 mg 02/20/2021 12:00:00 AM EDT tablet 30 TAKE ONE TABLET BY MOUTH EVERY DAY TAKE ONE TABLET BY MOUTH EVERY DAY SOLD: 06/21/2021 [facility] 5 mg 02/20/2021 12:00:00 AM EDT tablet 30 TAKE ONE TABLET BY MOUTH EVERY DAY TAKE ONE TABLET BY MOUTH EVERY DAY SOLD: 04/12/2021 [facility] 50 mg 02/13/2021 12:00:00 AM EDT tablet 90 TAKE ONE TABLET BY MOUTH EVERY DAY TAKE ONE TABLET BY MOUTH EVERY DAY SOLD: 05/17/2021 [facility] 50 mg 02/13/2021 12:00:00 AM EDT tablet 90 TAKE ONE TABLET BY MOUTH EVERY DAY TAKE ONE TABLET BY MOUTH EVERY DAY SOLD: 02/15/2021 [facility] Sulfasalazine 500 MG Oral Tablet sulfasalazine 500 mg tablet sulfasalazine 500 mg tablet 02/13/2021 12:00:00 AM EDT 2 {tbl} ORAL active take 2 Tablet by oral route 2 times every day after meals [facility] Hydroxychloroquine Sulfate 200 MG Oral T ablet HYDROXYCHLOROQUINE 200MG TABLET TB HYDROXYCHLOROQUINE 200MG TABLET TB 02/09/2021 12:00:00 AM EDT 1 {tbl} ORAL active TAKE 1 TABLET BY ATTILA TH TWICE DAILY [facility] Folic Acid 1 MG Oral Tablet folic acid 1 mg tablet folic aci d 1 mg tablet 02/09/2021 12:00:00 AM EDT 1 {tbl} ORAL active take 1 Tablet by oral route every day [facility] 50 mg 02/01/2021 12:00:00 AM EDT tablet 90 TAKE ONE TABLET BY MOUTH THREE TIMES A DAY NEEDED FOR PAIN MAXIMUM DAILY DOSE = 3 TABLETS TAKE ONE TABLET BY MOUTH THREE TIMES A DAY NEEDED FOR PAIN MAXIMUM DAILY DOSE = 3 TABLETS SOLD: 03/06/2021 [facility] 50 mg 02/01/2021 12:00:00 AM EDT tablet 90 TAKE ONE TABLET BY MOUTH THREE TIMES A DAY NEEDED FOR PAIN MAXIMUM DAILY DOSE = 3 TABLETS TAKE ONE TABLET BY MOUTH THREE TIMES A DAY NEEDED FOR PAIN MAXIMUM DAILY DOSE = 3 TABLETS SOLD: 04/12/2021 [facility] 50 mg 02/01/2021 12:00:00 AM EDT tablet 90 TAKE ONE TABLET BY MOUTH THREE TIMES A DAY NEEDED FOR PAIN MAXIMUM DAILY DOSE = 3 TABLETS TAKE ONE TABLET BY MOUTH THREE TIMES A DAY NEEDED FOR PAIN MAXIMUM DAILY DOSE = 3 TABLETS SOLD: 05/17/2021 [facility] 50 mg 02/01/2021 12:00:00 AM EDT tablet 90 TAKE ONE TABLET BY MOUTH THREE TIMES A DAY NEEDED FOR PAIN MAXIMUM DAILY DOSE = 3 TABLETS TAKE ONE TABLET BY MOUTH THREE TIMES A DAY NEEDED FOR PAIN MAXIMUM DAILY DOSE = 3 TABLETS SOLD: 06/21/2021 [facility] 50 mg 02/01/2021 12:00:00 AM EDT tablet 90 TAKE ONE TABLET BY MOUTH THREE TIMES A DAY NEEDED FOR PAIN MAXIMUM DAILY DOSE = 3 TABLETS TAKE ONE TABLET BY MOUTH THREE TIMES A DAY NEEDED FOR PAIN MAXIMUM DAILY DOSE = 3 TABLETS SOLD: 02/05/2021 [facility] leflunomide 20 MG Oral Tablet leflunomide 20 mg tablet leflu nomide 20 mg tablet 01/12/2021 12:00:00 AM EDT active TAKE 1 TABLET BY MOUTH DAILY [facility] Folic Acid 1 MG Oral Tablet FOLIC ACID TAB 1MG FOLIC ACID TA B 1MG 11/22/2020 12:00:00 AM EST 1 {tbl} ORAL completed TAKE 1 TABLET BY MOUTH DAILY [facility] ([facility]) leflunomide 20 MG Oral Tablet LEFLUNOMIDE 20MG TAB LEFLUNO MIDE 20MG TAB 11/22/2020 12:00:00 AM EST completed TAKE 1 TABLET BY MOUTH DAILY [facility] ([facility]) Sulfasalazine 500 MG Oral Tablet SULFASALAZINE 500MG TAB SULFASALAZINE 500MG TAB 11/22/2020 12:00:00 AM EST 2 {tbl} ORAL completed TAKE 2 TABLETS BY MOUTH TWICE DAILY AFTER MEALS [facility] ([facility]) 50 mg 11/20/2020 12:00:00 AM EST tablet 90 TAKE ONE TABLET BY MOUTH THREE TIMES A DAY NEEDED FOR PAIN . MAXIMUM DAILY DOSE = 3 TAKE ONE TABLET BY MOUTH THREE TIMES A DAY NEEDED FOR PAIN . MAXIMUM DAILY DOSE = 3 SOLD: 11/20/2020 [facility] 5 mg 10/13/2020 12:00:00 AM EST tablet 30 TAKE ONE TABLET BY MOUTH EVERY DAY TAKE ONE TABLET BY MOUTH EVERY DAY SOLD: 01/23/2021 [facility] 5 mg 10/13/2020 12:00:00 AM EST tablet 30 TAKE ONE TABLET BY MOUTH EVERY DAY TAKE ONE TABLET BY MOUTH EVERY DAY SOLD: 12/21/2020 [facility] 5 mg 10/13/2020 12:00:00 AM EST tablet 30 TAKE ONE TABLET BY MOUTH EVERY DAY TAKE ONE TABLET BY MOUTH EVERY DAY SOLD: 10/19/2020 [facility] 5 mg 10/13/2020 12:00:00 AM EST tablet 30 TAKE ONE TABLET BY MOUTH EVERY DAY TAKE ONE TABLET BY MOUTH EVERY DAY SOLD: 11/20/2020 [facility] Folic Acid 1 MG Oral Tablet folic acid 1 mg tablet folic aci d 1 mg tablet 09/21/2020 12:00:00 AM EST 1 {tbl} ORAL completed take 1 Tablet by oral route every day [facility] ([facility]) Sulfasalazine 500 MG Oral Tablet sulfasalazine 500 mg tablet sulfasalazine 500 mg tablet 09/21/2020 12:00:00 AM EST 2 {tbl} ORAL complet ed take 2 Tablet by oral route 2 times every day after meals [facility] ([facility]) leflunomide 20 MG Oral Tablet leflunomide 20 mg tablet leflu nomide 20 mg tablet 09/21/2020 12:00:00 AM EST completed TAKE 1 TABLET BY MOUTH EVERY DAY [facility] 50 mg 08/16/2020 12:00:00 AM EST tablet 90 TAKE ONE TABLET BY MOUTH EVERY DAY TAKE ONE TABLET BY MOUTH EVERY DAY SOLD: 11/17/2020 [facility] 50 mg 08/16/2020 12:00:00 AM EST tablet 90 TAKE ONE TABLET BY MOUTH EVERY DAY TAKE ONE TABLET BY MOUTH EVERY DAY SOLD: 08/18/2020 [facility] Sertraline 50 MG Oral Tablet Sertraline HCL 08/15/2020 12:00:00 AM EST active [facility] ([facility] 500 mg 06/28/2020 12:00:00 AM EDT tablet 360 TAKE TWO TABLETS BY MOUTH TWICE A DAY AFTER MEALS TAKE TWO TABLETS BY MOUTH TWICE A DAY AFTER MEALS SOLD : 06/30/2020 [facility] Folic Acid 1 MG Oral Tablet folic acid 1 mg tablet folic aci d 1 mg tablet 06/27/2020 12:00:00 AM EDT 1 {tbl} ORAL completed take 1 Tablet by oral route every day [facility] ([facility]) leflunomide 20 MG Oral Tablet leflunomide 20 mg tablet leflu nomide 20 mg tablet 06/27/2020 12:00:00 AM EDT completed TAKE 1 TABLET BY MOUTH EVERY DAY [facility] ([facility]) Hydroxychloroquine Sulfate 200 MG Oral Tablet hydroxyc hloroquine 200 mg tablet hydroxychloroquine 200 mg tablet 06/27/2020 12:00:00 AM EDT 1 {tbl} ORAL completed take 1 Tablet by oral route 2 ti mes every day [facility] ([facility]) Sulfasalazine 500 MG Oral Tablet sulfasalazine 500 mg tablet sulfasalazine 500 mg tablet 06/27/2020 12:00:00 AM EDT 2 {tbl} ORAL complet ed take 2 Tablet by oral route 2 times every day after meals [facility] 5 mg 06/10/2020 12:00:00 AM EDT tablet 30 TAKE ONE TABLET BY MOUTH EVERY DAY TAKE ONE TABLET BY MOUTH EVERY DAY SOLD: 08/16/2020 [facility] 5 mg 06/10/2020 12:00:00 AM EDT tablet 30 TAKE ONE TABLET BY MOUTH EVERY DAY TAKE ONE TABLET BY MOUTH EVERY DAY SOLD: 09/15/2020 [facility] 5 mg 06/10/2020 12:00:00 AM EDT tablet 30 TAKE ONE TABLET BY MOUTH EVERY DAY TAKE ONE TABLET BY MOUTH EVERY DAY SOLD: 07/16/2020 [facility] 5 mg 06/10/2020 12:00:00 AM EDT tablet 30 TAKE ONE TABLET BY MOUTH EVERY DAY TAKE ONE TABLET BY MOUTH EVERY DAY SOLD: 06/16/2020 [facility] 50 mg 03/15/2020 12:00:00 AM EDT tablet 90 TAKE 1 TAB.BY MOUTH 3 TIMES A DAY NEEDED FOR PAIN MAX DAILY DOSE=3 TABLETS TAKE 1 TAB.BY MOUTH 3 TIMES A DAY NEEDED FOR PAIN MAX DAILY DOSE=3 TABLETS SOLD: 06/19/2020 [facility] 50 mg 03/15/2020 12:00:00 AM EDT tablet 90 TAKE 1 TAB.BY MOUTH 3 TIMES A DAY NEEDED FOR PAIN MAX DAILY DOSE=3 TABLETS TAKE 1 TAB.BY MOUTH 3 TIMES A DAY NEEDED FOR PAIN MAX DAILY DOSE=3 TABLETS SOLD: 07/19/2020 [facility] Dexamethasone 4 MG Oral Tablet dexamethasone 4 mg tabl et dexamethasone 4 mg tablet completed take 2. 5 tablet by oral route 3 times every day [facility] ([facility]) Insurance Providers Payer name Policy type / Coverage type Policy ID Covered libertarian ID Covered libertarian's relationship to reid Policy Reid Plan Information MEDICARE COMPLETE [id number] MEDICARE COMPLETE [id number] UHC UNITED MEDICARE COMPLETE G [id number] Self [id number] UHC UNITED MEDICARE COMPLETE G [id number] Self [id number] [facility] Medicare Commercial [id number] Self [id number] MEDICARE COMPLETE [id number] [facility] [id number] [facility] [id number] [employer] Medicare Commercial [id number] Self [id number] MEDICARE COMPLETE [id number] [employer] Medicare Commercial [id number] Self [id number] Problems, Conditions, and Diagnoses No Information Surgeries/Procedures Procedure Description Date Indications Data Source(s) OFFICE OUTPATIENT VISIT 25 MINUTES 04/17/2021 12:00:00 AM EDT [facility] ([facility] Normal saline solution infus 02/19/2021 12:00:00 AM EDT - 02/19/2021 12:00:00 AM EDT [facility] ([facility]) Actemra (tocilizumab 1 Mg) 02/19/2021 12 :00:00 AM EDT - 02/19/2021 12:00:00 AM EDT [facility] ([facility]) CHEMO, IV INFUSION, 1 HR 02/19/2021 12:0 0:00 AM EDT - 02/19/2021 12:00:00 AM EDT [facility] ([facility]) Normal saline solution infus 01/18/2021 12:00:00 AM EDT - 01/18/2021 12:00:00 AM EDT [facility] ([facility]) Actemra (tocilizumab 1 Mg) 01/18/2021 12 :00:00 AM EDT - 01/18/2021 12:00:00 AM EDT [facility] ([facility]) CHEMO, IV INFUSION, 1 HR 01/18/2021 12:0 0:00 AM EDT - 01/18/2021 12:00:00 AM EDT [facility] ([facility]) HCV Screening For Pt Born 1945 To 1965 0 01/12/2021 12:00:00 AM EDT - 01/12/2021 12:00:00 AM EDT [facility] ([facility]) OFFICE/OUTPATIENT VISIT, EST 01/12/2021 12:00:00 AM EDT - 01/12/2021 12:00:00 AM EDT [facility] ([facility]) ASSAY OF SERUM ALBUMIN 01/12/2021 12:00: 00 AM EDT - 01/12/2021 12:00:00 AM EDT [facility] ([facility]) ALANINE AMINO (ALT) (SGPT) 01/12/2021 12 :00:00 AM EDT - 01/12/2021 12:00:00 AM EDT [facility] ([facility]) TRANSFERASE (AST) (SGOT) 01/12/2021 12:0 0:00 AM EDT - 01/12/2021 12:00:00 AM EDT [facility] ([facility] ASSAY OF UREA NITROGEN 01/12/2021 12:00: 00 AM EDT - 01/12/2021 12:00:00 AM EDT [facility] ([facility] ASSAY OF CREATININE 01/12/2021 12:00:00 AM EDT - 01/12 12:00:00 AM EDT [facility] ([facility]) C-REACTIVE PROTEIN 01/12/2021 12:00:00 AM EDT - 2020 12:00:00 AM EDT [facility] ([facility]) RBC SED RATE, AUTOMATED 01/12/2021 12:00 :00 AM EDT - 01/12/2021 12:00:00 AM EDT [facility] COMPLETE CBC W/AUTO DIFF WBC 01/12/2021 12:00:00 AM EDT - 01/12/2021 12:00:00 AM EDT [facility] ([facility] ROUTINE VENIPUNCTURE 01/12/2021 12:00:00 AM EDT - 01/12/2021 12:00:00 AM EDT [facility] ([facility]) Normal saline solution infus 12/21/2020 12:00:00 AM EDT - 12/21/2020 12:00:00 AM EDT [facility] Actemra (tocilizumab 1 Mg) 12/21/2020 12 :00:00 AM EDT - 12/21/2020 12:00:00 AM EDT [facility] CHEMO, IV INFUSION, 1 HR 12/21/2020 12:0 0:00 AM EDT - 12/21/2020 12:00:00 AM EDT [facility] Normal saline solution infus 11/22/2020 12:00:00 AM EST - 11/22/2020 12:00:00 AM EST [facility] ([facility] Actemra (tocilizumab 1 Mg) 11/22/2020 12 :00:00 AM EST - 11/22/2020 12:00:00 AM EST [facility] CHEMO, IV INFUSION, 1 HR 11/22/2020 12:0 0:00 AM EST - 11/22/2020 12:00:00 AM EST [facility] Normal saline solution infus 10/20/2020 12:00:00 AM EST - 10/20/2020 12:00:00 AM EST [facility] ([facility] Actemra (tocilizumab 1 Mg) 10/20/2020 12 :00:00 AM EST - 10/20/2020 12:00:00 AM EST [facility] ([facility] CHEMO, IV INFUSION, 1 HR 10/20/2020 12:0 0:00 AM EST - 10/20/2020 12:00:00 AM EST [facility] ([facility] HCV Screening For Pt Born 1945 To 1965 0 09/27/2020 12:00:00 AM EST - 09/27/2020 12:00:00 AM EST [facility] ([facility] OFFICE/OUTPATIENT VISIT, EST 09/27/2020 12:00:00 AM EST - 09/27/2020 12:00:00 AM EST [facility] Actemra (tocilizumab 1 Mg) 09/21/2020 12 :00:00 AM EST - 09/21/2020 12:00:00 AM EST [facility] Normal saline solution infus 09/21/2020 12:00:00 AM EST - 09/21/2020 12:00:00 AM EST [facility] ([facility]) CHEMO, IV INFUSION, 1 HR 09/21/2020 12:0 0:00 AM EST - 09/21/2020 12:00:00 AM EST [facility] ASSAY OF SERUM ALBUMIN 09/21/2020 12:00: 00 AM EST - 09/21/2020 12:00:00 AM EST [facility] TRANSFERASE (AST) (SGOT) 09/21/2020 12:0 0:00 AM EST - 09/21/2020 12:00:00 AM EST [facility] ALANINE AMINO (ALT) (SGPT) 09/21/2020 12 :00:00 AM EST - 09/21/2020 12:00:00 AM EST [facility] ASSAY OF CREATININE 09/21/2020 12:00:00 AM EST - 09/21 12:00:00 AM EST [facility] C-REACTIVE PROTEIN 09/21/2020 12:00:00 AM EST - 2020 12:00:00 AM EST [facility] ([facility]) RBC SED RATE, AUTOMATED 09/21/2020 12:00 :00 AM EST - 09/21/2020 12:00:00 AM EST [facility] COMPLETE CBC W/AUTO DIFF WBC 09/21/2020 12:00:00 AM EST - 09/21/2020 12:00:00 AM EST [facility] ROUTINE VENIPUNCTURE 09/21/2020 12:00:00 AM EST - 09/21/2020 12:00:00 AM EST [facility] Results ID Date Data Source [id number] 01/12/2021 11:54:00 AM EDT [facility] Name Value Range Interpretation Code Description Data Vida rce(s) Supporting Document(s) <0.2 0.0-0.5 CRP [facility]) ID Date Data Source [id number] 01/12/2021 11:54:00 AM EDT [facility] ([facility]) Name Value Range Interpretation Code Description Data Vida rce(s) Supporting Document(s) 1.0 mg/dL 0.9-1.2 CREATININE [facility] ([facility]) >60 eGFR Non- [facility] ([facility]) >60 eGFR [facility] ([facility]) ID Date Data Source [id number] 01/12/2021 11:54:00 AM EDT [facility] ([facility]) Name Value Range Interpretation Code Description Data Vida rce(s) Supporting Document(s) 10 mg/dL 10-23 BUN [facility] ([facility]) ID Date Data Source [id number] 01/12/2021 11:54:00 AM EDT [facility] ([facility]) Name Value Range Interpretation Code Description Data Vida rce(s) Supporting Document(s) 18 U/L 15-37 AST [facility] ([facility]) ID Date Data Source [id number] 01/12/2021 11:54:00 AM EDT [facility] ([facility]) Name Value Range Interpretation Code Description Data Vida rce(s) Supporting Document(s) 41 U/L 30-65 ALT [facility] ([facility]) ID Date Data Source [id number] 01/12/2021 11:54:00 AM EDT [facility] ([facility]) Name Value Range Interpretation Code Description Data Vida rce(s) Supporting Document(s) 4.1 g/dL 3.4-4.4 ALB [facility] ([facility]) ID Date Data Source [id number] 01/12/2021 11:54:00 AM EDT [facility] ([facility]) Name Value Range Interpretation Code Description Data Vida rce(s) Supporting Document(s) 2 mm/Hr 0-20 ESR [facility] ([facility]) ID Date Data Source [id number] 01/12/2021 11:54:00 AM EDT [facility] ([facility]) Name Value Range Interpretation Code Description Data Vida rce(s) Supporting Document(s) 7.9 10*3/uL 3.7-10.1 WBC [facility] ([facility]) 16.8 g/dL 13.0-18.0 HGB [facility] 5.30 10*6/uL 4.00-5.90 RBC [facility] 98.4 fL 70.0-100.0 MCV [facility] ([facility]) 52.2 % 39.0-55.0 HCT [facility] 31.8 pg 26.0-34.0 MCH [facility]) 32.3 g/dL 31.0-37.0 MCHC [facility] ([facility]) 13.3 % 10.0-15.0 RDW [facility] 211 10*3/uL 150-500 PLATELETS [facility] ([facility]) 3.74 10*3/uL 2.10-8.00 NOHELIA# [facility] ([facility]) >10 6.0-10.0 Above high normal MPV [facility] ([facility]) 1.51 10*3/uL 0.10-1.00 Above high normal MONO# NextG en ([facility]) 1.63 10*3/uL 1.00-5.00 LYM# [facility] ([facility]) 0.8 10*3/uL 0.0-0.5 Above high normal EOS# NextGe n ([facility]) 0.2 10*3/uL 0.0-0.2 BASO# [facility]Gen ([facility]) 47.7 % 50.0-80.0 Below low normal NOHELIA% [facility] ([facility]) 20.8 % 25.0-50.0 Below low normal LYM% [facility] ([facility]) 9.7 % 0.0-5.0 Above high normal EOS% [facility] ([facility]) 19.2 % 2.0-10.0 Above high normal MONO% [facility] ([facility]) 2.7 % 0.0-4.0 BASO% [facility] ([facility]) ID Date Data Source [id number] 09/21/2020 01:10:00 PM EST NextGen ([facility]) Name Value Range Interpretation Code Description Data Vida rce(s) Supporting Document(s) 0.4 mg/dL 0.0-0.5 CRP NextGen ([facility]) ID Date Data Source [id number] 09/21/2020 01:10:00 PM EST [facility] ([facility]) Name Value Range Interpretation Code Description Data Vida rce(s) Supporting Document(s) 1.0 mg/dL 0.9-1.2 CREATININE NextGen ([facility]) >60 eGFR Non- Next Gen ([facility]) >60 eGFR NextGen ([facility]) ID Date Data Source [id number] 09/21/2020 01:10:00 PM EST NextGen ([facility]) Name Value Range Interpretation Code Description Data Vida rce(s) Supporting Document(s) 19 U/L 15-37 AST NextGen ([facility]) ID Date Data Source [id number] 09/21/2020 01:10:00 PM EST NextGen ([facility]) Name Value Range Interpretation Code Description Data Vida rce(s) Supporting Document(s) 27 U/L 30-65 Below low normal ALT [facility] ([facility]) ID Date Data Source [id number] 09/21/2020 01:10:00 PM EST NextGen ([facility]) Name Value Range Interpretation Code Description Data Vida rce(s) Supporting Document(s) 3.3 g/dL 3.4-4.4 Below low normal ALB NextGen ([facility]) ID Date Data Source [id number] 09/21/2020 01:10:00 PM EST NextGen ([facility]) Name Value Range Interpretation Code Description Data Vida rce(s) Supporting Document(s) 18 mm/Hr 0-20 ESR [facility] ([facility]) ID Date Data Source [id number] 09/21/2020 01:10:00 PM EST NextGen ([facility]) Name Value Range Interpretation Code Description Data Vida rce(s) Supporting Document(s) 8.2 10*3/uL 3.7-10.1 WBC NextGen ([facility]) 4.64 10*6/uL 4.00-5.90 RBC [facility] ([facility]) 14.6 g/dL 13.0-18.0 HGB [facility] ([facility]) 45.0 % 39.0-55.0 HCT [facility] ([facility]) 96.9 fL 70.0-100.0 MCV NextGen ([facility]) 31.5 pg 26.0-34.0 MCH [facility] ([facility]) 11.7 % 10.0-15.0 RDW [facility] ([facility]) 32.5 g/dL 31.0-37.0 MCHC [facility] ([facility]) 415 10*3/uL 150-500 PLATELETS NextGen ([facility]) 7.1 fL 6.0-10.0 MPV [facility] ([facility]) 1.05 10*3/uL 1.00-5.00 LYM# [facility]Gen ([facility]) 6.07 10*3/uL 2.10-8.00 NOHELIA# [facility]Gen ([facility]) 0.1 10*3/uL 0.0-0.5 EOS# NextGen ([facility]) 0.78 10*3/uL 0.10-1.00 MONO# [facility]Gen ([facility]) 0.2 10*3/uL 0.0-0.2 BASO# NextGen ([facility]) 12.8 % 25.0-50.0 Below low normal LYM% [facility] ([facility]) 73.8 % 50.0-80.0 NOHELIA% [facility]Gen ([facility]) 1.8 % 0.0-5.0 EOS% [facility]Gen ([facility]) 9.5 % 2.0-10.0 MONO% NextGen ([facility]) 2.1 % 0.0-4.0 BASO% [facility] ([facility]) Procedure Social History Code Duration Value Status Description Data Source(s ) Caffeine Use Details 02/19/2021 12:00:00 AM EDT completed and coffee, 1 cup NextGen ([facility]) Smoking 02/19/2021 12:00:00 AM EDT Unknown if ever smoked comp leted Unknown if ever smoked NextGen ([facility]) 01/12/2021 12:00:00 AM EDT Chews tobacco completed Chews tobacco NextGen ([facility]) Vital Signs ID Date Data Source UNK Name Value Range Interpretation Code Description Data Source(s) Body mass index (BMI) [Ratio] 31.6 kg/m2 31.6 k g/m2 [facility] ([facility] Systolic blood pressure 144 mm[Hg] 144 mm[Hg] M EDENT ([facility] Diastolic blood pressure 84 mm[Hg] 84 mm[Hg] MEDENT ([facility] Body temperature 98.6 [degF] 98.6 [degF] MEDENT ([facility] Heart rate 66 /min 66 /min [facility] ([facility] Respiratory rate 14 /min 14 /min MED[facility] ( [facility] Body height 68 [in_i] 68 [in_i] MEDENT ([facility] 5'8" Body weight 208.00 [lb_av] 208.00 [lb_av] MEDEN T ([facility] Ernul body weight 154 [lb_av] 154 [lb_av] MEDEN T ([facility] Oxygen saturation in Arterial blood by Pulse oximetry 95 % 95 % MEDENT ([facility] Systolic blood pressure 122 mm[Hg] 122 mm[Hg] N extGen ([facility]) Diastolic blood pressure 82 mm[Hg] 82 mm[Hg] NextGen ([facility]) Body weight 94.801 kg 94.801 kg [facility] ([facility] Systolic blood pressure 130 mm[Hg] 130 mm[Hg] N extGen ([facility]) Diastolic blood pressure 90 mm[Hg] 90 mm[Hg] NextGen ([facility]) Heart rate 74 /min 74 /min [facility] ([facility]) Body temperature 36.39 Christine 36.39 Christine NextGen ([facility]) Respiratory rate 18 /min 18 /min NextGen ([facility]) Systolic blood pressure 124 mm[Hg] 124 mm[Hg] N extGen ([facility]) Diastolic blood pressure 72 mm[Hg] 72 mm[Hg] NextGen ([facility]) Heart rate 72 /min 72 /min [facility] ([facility]) Respiratory rate 14 /min 14 /min NextGen ([facility]) Body height 172.72 cm 172.72 cm Next[facility] ([facility]) Body weight 95.254 kg 95.254 kg Next[facility] ([facility]) Systolic blood pressure 136 mm[Hg] 136 mm[Hg] N extGen ([facility]) Diastolic blood pressure 84 mm[Hg] 84 mm[Hg] NextGen ([facility]) Heart rate 84 /min 84 /min [facility] ([facility]) Body temperature 36.39 Christine 36.39 Christine NextGen ([facility]) Respiratory rate 17 /min 17 /min NextGen ([facility]) Body mass index (BMI) [Ratio] 31.93 kg/m2 Overweight 31.93 kg/m2 NextGen ([facility]) Body height 172.72 cm 172.72 cm Next[facility] ([facility]) Body weight 96.162 kg 96.162 kg Next[facility] ([facility]) Systolic blood pressure 140 mm[Hg] 140 mm[Hg] N extGen ([facility]) Diastolic blood pressure 86 mm[Hg] 86 mm[Hg] NextGen ([facility]) Body mass index (BMI) [Ratio] 32.23 kg/m2 Overweight 32.23 kg/m2 NextGen ([facility]) Systolic blood pressure 126 mm[Hg] 126 mm[Hg] N extGen ([facility]) Diastolic blood pressure 80 mm[Hg] 80 mm[Hg] NextGen ([facility]) Body height 172.72 cm 172.72 cm [facility] ([facility]) Body weight 84.822 kg 84.822 kg Next[facility] ([facility]) Systolic blood pressure 122 mm[Hg] 122 mm[Hg] N extGen ([facility]) Diastolic blood pressure 70 mm[Hg] 70 mm[Hg] NextGen ([facility]) Heart rate 80 /min 80 /min [facility] ([facility]) Body temperature 36.61 Christine 36.61 Christine NextGen ([facility]) Respiratory rate 16 /min 16 /min NextGen ([facility]) Body mass index (BMI) [Ratio] 28.43 kg/m2 Overweight 28.43 kg/m2 NextGen ([facility]) Systolic blood pressure 142 mm[Hg] 142 mm[Hg] N extGen ([facility]) Diastolic blood pressure 72 mm[Hg] 72 mm[Hg] NextGen ([facility]) Body weight 85.729 kg 85.729 kg Next[facility] ([facility]) Systolic blood pressure 136 mm[Hg] 136 mm[Hg] N extGen ([facility]) Diastolic blood pressure 82 mm[Hg] 82 mm[Hg] NextGen ([facility]) Heart rate 68 /min 68 /min [facility] ([facility]) Body temperature 36.33 Christine 36.33 Christine NextGen ([facility]) Respiratory rate 17 /min 17 /min NextGen ([facility]) Systolic blood pressure 122 mm[Hg] 122 mm[Hg] N extGen ([facility]) Diastolic blood pressure 86 mm[Hg] 86 mm[Hg] NextGen ([facility]) Body height 172.72 cm 172.72 cm Next[facility] ([facility]) Body weight 92.533 kg 92.533 kg NextGen ([facility]) Systolic blood pressure 124 mm[Hg] 124 mm[Hg] N extGen ([facility]) Diastolic blood pressure 86 mm[Hg] 86 mm[Hg] NextGen ([facility]) Heart rate 76 /min 76 /min [facility] ([facility]) Body temperature 36.39 Christine 36.39 Christine NextGen ([facility]) Respiratory rate 16 /min 16 /min NextGen ([facility]) Body mass index (BMI) [Ratio] 31.02 kg/m2 Overweight 31.02 kg/m2 NextGen ([facility]) Respiratory rate 14 /min 14 /min MEDENT ( [facility] Systolic blood pressure 138 mm[Hg] 138 mm[Hg] M EDENT ([facility] Diastolic blood pressure 88 mm[Hg] 88 mm[Hg] MEDENT ([facility] Heart rate 80 /min 80 /min MEDENT ([facility] Body weight 207.00 [lb_av] 207.00 [lb_av] MEDEN T ([facility] Systolic blood pressure 118 mm[Hg] 118 mm[Hg] N extGen ([facility]) Diastolic blood pressure 70 mm[Hg] 70 mm[Hg] NextGen ([facility]) Body height 172.72 cm 172.72 cm [facility] ([facility]) Body weight 90.718 kg 90.718 kg Next[facility] ([facility]) Systolic blood pressure 134 mm[Hg] 134 mm[Hg] N extGen ([facility]) Diastolic blood pressure 88 mm[Hg] 88 mm[Hg] NextGen ([facility]) Heart rate 78 /min 78 /min [facility] ([facility]) Body temperature 36.22 Christine 36.22 Christine NextGen ([facility]) Respiratory rate 16 /min 16 /min NextGen ([facility]) Body mass index (BMI) [Ratio] 30.41 kg/m2 Overweight 30.41 kg/m2 NextGen ([facility]) Patient Treatment Plan of Care Planned Activity Planned Date Details Description Data Source (s) Sulfasalazine 500 MG Oral Tablet 02/13/2021 12:00:00 AM EDT NextGen ([facility]) Folic Acid 1 MG Oral Tablet 02/09/2021 12:00:00 AM EDT NextGen ([facility]) Hydroxychloroquine Sulfate 200 MG Oral Tablet 02/09/2021 12:00:00 A M EDT NextGen ([facility]) leflunomide 20 MG Oral Tablet 01/12/2021 12:00:00 AM EDT NextGen ([facility]) Sulfasalazine 500 MG Oral Tablet 11/22/2020 12:00:00 AM EST NextGen ([facility]) Folic Acid 1 MG Oral Tablet 11/22/2020 12:00:00 AM EST NextGen ([facility]) leflunomide 20 MG Oral Tablet 11/22/2020 12:00:00 AM EST NextGen ([facility]) Sulfasalazine 500 MG Oral Tablet 09/21/2020 12:00:00 AM EST NextGen ([facility]) Folic Acid 1 MG Oral Tablet 09/21/2020 12:00:00 AM EST NextGen ([facility]) leflunomide 20 MG Oral Tablet 09/21/2020 12:00:00 AM EST NextGen ([facility]) Hydroxychloroquine Sulfate 200 MG Oral Tablet 06/27/2020 12:00:00 A M EDT NextGen ([facility]) Folic Acid 1 MG Oral Tablet 06/27/2020 12:00:00 AM EDT NextGen ([facility]) Sulfasalazine 500 MG Oral Tablet 06/27/2020 12:00:00 AM EDT NextGen ([facility]) leflunomide 20 MG Oral Tablet 06/27/2020 12:00:00 AM EDT NextGen ([facility]) Dexamethasone 4 MG Oral Tablet NextGen ([facility])
[2021-07-23] MEDS ORDERED: ETOMIDATE INJ 20MG/10ML VIAL IV STA (12:48)
[2021-07-23] MEDS ORDERED: SUCCINYLCHOLINE INJ 200 MG/10 ML VIAL (J0330) IV STA (12:48)
[2021-07-23] MEDS ORDERED: niCARdipine IV 40 MG in IV 1 EA IV SCH (12:50)
[2021-07-23 12:52] LABS: BASO # 0.1 10^3/uL (0.0-0.2); BASO % 0.9 % (0.0-1.0); EOS # 0.2 10^3/uL (0.0-0.5); EOS % 1.7 % (0.0-3.0); HEMATOCRIT 47.2 % (42.0-52.0); HEMOGLOBIN 15.6 g/dl (13.5-17.5); LYMPH # 0.8 10^3/uL (1.5-5.0); LYMPH % 9.1 % (24.0-44.0); MEAN CORPUSCULAR HEMOGLOBIN 31.1 pg (27.0-33.0); MEAN CORPUSCULAR HGB CONC 33.1 g/dl (32.0-36.5); MEAN CORPUSCULAR VOLUME 94.2 fl (80.0-96.0); MONO # 1.1 10^3/uL (0.0-0.8); MONO % 12.6 % (2.0-8.0); NEUTROPHILS # 6.5 10^3/uL (1.5-8.5); NEUTROPHILS % 75.1 % (36.0-66.0); PLATELET COUNT, AUTOMATED 189 10^3/uL (150-450); RED BLOOD COUNT 5.01 10^6/uL (4.30-6.10); WHITE BLOOD COUNT 8.6 10^3/uL (4.0-10.0)
[2021-07-23 13:07] LABS: INR 1.04
[2021-07-23] MEDS ORDERED: PROPOFOL 1,000 MG/100 ML VIAL As Ordered ONE (13:07)
--- NOTE | 2021-07-23 13:07 | REP ---
INDICATION: ams. COMPARISON: None. TECHNIQUE: 2 x 2 mm increments using helical technique and reconstructed in both sagittal and coronal planes FINDINGS: There is no evidence of an acute fracture, dislocation, or subluxation. Vertebral body height and alignment is within normal limits. There is no evidence of abnormal paraspinal soft tissue swelling. IMPRESSION: No acute osseous abnormality. <Electronically signed by Rogelio Byers > 07/23/21 [id number]
[2021-07-23 13:08] LABS: PARTIAL THROMBOPLASTIN TIME 26.3 SECONDS (25.9-37.0)
--- NOTE | 2021-07-23 13:17 | REP ---
INDICATION: ams. COMPARISON: 04/21/2017 TECHNIQUE: Axial soft tissue and bone window settings and coronal reconstructions reviewed. FINDINGS: The left basal ganglia and adjacent white matter tracks of the frontotemporal region show an intraparenchymal hemorrhage 4.7 x 2.9 x 3.7 cm. It is slightly effacing the frontal and posterior horn of the left lateral ventricle with a 2-3 mm midline shift to the right. The right lateral ventricle 3rd and 4th ventricles are intact. The basal cisterns are intact. See no significant atrophy. There is effacement of the temporal horn of left lateral ventricle. Balderrama-white junction differentiation was maintained elsewhere. There is no extra-axial hemorrhage. No intraventricular bleed. Posterior fossa without bleed. Cerebellum was unremarkable. The brainstem intact. The bone windows show mastoids, the skull base and calvarium without fracture or focal lesion. Some minor ethmoid sinus mucosal thickening and mucosal thickening in the right maxillary antrum. IMPRESSION: 1. There is a 4.7 x 2.9 x 3.7 cm intraparenchymal hemorrhage involving the basal ganglia and white matter tracts on the left causing partial effacement of the left lateral ventricle and midline shift to the right of about 2-3 mm. There is no subarachnoid or subdural hemorrhage, other intraparenchymal or intraventricular hemorrhage evident. The tracheal air size in and sulci normal for age. Posterior fossa intact. No lacunar or vascular territory infarcts evident. 2. Some ethmoid sinus mucosal thickening as well as right maxillary sinus disease but no skull base, mastoid or calvarial abnormality. 3. I spoke to Dr. Solis by phone at 1:10 p.m. during the conclusion of this dictation. 4. Critical result: Physician informed by phone as above. <Electronically signed by Mainor Peña > 07/23/21 [id number]
[2021-07-23] MEDS ORDERED: MIDAZOLAM INJ 2MG/2ML VIAL (J2250 PER 1MG) IV STA (13:25)
[2021-07-23 13:33] LABS: ALBUMIN 3.7 GM/DL (3.2-5.2); ALT/SGPT 34 U/L (12-78); BILIRUBIN,DIRECT 0.3 MG/DL (0.0-0.2); BILIRUBIN,TOTAL 1.8 MG/DL (0.2-1.0); BLOOD UREA NITROGEN 13 MG/DL (7-18); CALCIUM LEVEL 8.9 MG/DL (8.8-10.2); CARBON DIOXIDE LEVEL 25 MEQ/L (21-32); CHLORIDE LEVEL 110 MEQ/L (98-107); CREATININE FOR GFR 0.99 MG/DL (0.70-1.30); GLOMERULAR FILTRATION RATE > 60.0 (>49); GLUCOSE, FASTING 108 MG/DL (70-100); POTASSIUM SERUM 3.3 MEQ/L (3.5-5.1); SODIUM LEVEL 144 MEQ/L (136-145); THYROID STIMULATING HORMONE 0.457 uIU/ML (0.358-3.740); TOTAL PROTEIN 6.3 GM/DL (6.4-8.2)
[2021-07-23] MEDS: propofoL 1,000 MG in IV 1 EA IV SCH ×2 (13:37→13:56)
--- NOTE | 2021-07-23 13:46 | REP ---
INDICATION: et tube placement. COMPARISON: 06/01/2018 AP CXR TECHNIQUE: AP supine FINDINGS: There is an endotracheal tube about 2.3 cm above the michel. Lungs are hypoinflated. Crowding of markings. Allowing for that some vascular congestion is suggested with engorgement of veins but no haziness in either lung field the suggested definite layering effusion. Patchy atelectasis or infiltrates in the perihilar regions, right greater than left. Heart not enlarged for this degree of inflation.. IMPRESSION: 1. Hypoinflated chest with endotracheal tube 2.3 cm from the michel. Crowded markings and some vascular congestion noted with some perihilar atelectasis bilaterally right greater than left. No definite layering effusion in either hemithorax but some venous congestion without marivel edema suggested. This may all be improved with better level of inflation. <Electronically signed by Mainor Peña > 07/23/21 [id number]
--- OUTSIDE RECORDS SUMMARY | 2021-07-23 14:00 | CCD ---
Author Author [facility] Organization [facility] Address Unknown Phone Unavailable Care Team Providers Care Auditor/Quality Name Role Phone Kaela HUSAIN MD Unavailable [...] M PARVIZ PA Unavailable Unavailable MCILVAIN, M PARIVZ PA Unavailable Unavailable MCILVAIN, M PARVIZ PA [...] Unavailable MCILVAIN, M PARVIZ PA Unavailable Unavailable Hawkins Kika, A Jaida PA Unavailable Unavailable Hawkins Kika, A Jaida PA Unavailable Unavailable Hawkins Kika, A Jaida PA Unavailable Unavailable Hawkins Kika, A Jaida PA Unavailable Unavailable Hawkins Kika, A Jaida PA Unavailable Unavailable Hawkins Kika, A Jaida PA Unavailable Unavailable Hawkins Kika, A Jaida PA Unavailable Unavailable Hawkins Kika, A Jaida PA Unavailable Unavailable Hawkins Kika, A Jaida PA Unavailable Unavailable Hawkins Kika, A Jaida PA Unavailable Unavailable Hawkins Kika, A Jaida PA Unavailable Unavailable Hawkins Kika, A Jaida PA Unavailable Unavailable Hawkins Kika, A Jaida PA Unavailable Unavailable Hawkins Kika, A Jaida PA Unavailable Unavailable Hawkins Kika, A Jaida PA Unavailable Unavailable Hawkins Kika, A Jaida PA Unavailable Unavailable Hawkins Kika, A Jaida PA Unavailable Unavailable Hawkins Kika, A Jaida PA Unavailable Unavailable Hawkins Kika, A Jaida PA Unavailable Unavailable Hawkins Kika, A Jaida PA Unavailable Unavailable Hawkins Kika, A Jaida PA Unavailable Unavailable Hawkins Kika, A Jaida PA Unavailable Unavailable Hawkins Kika, A Jaida PA Unavailable Unavailable Hawkins Kika, A Jaida PA Unavailable Unavailable Hawkins Kika, A Jaida PA Unavailable Unavailable Hawkins Kika, A Jaida PA Unavailable Unavailable Hawkins Kika, A Jaida PA Unavailable Unavailable Hawkins Kika, A Jaida PA Unavailable Unavailable Hawkins Kika, A Jaida PA Unavailable Unavailable Hawkins Kika, A Jaida PA Unavailable Unavailable Hawkins Kika, A Jaida PA Unavailable Unavailable Hawkins Kika, A Jaida PA Unavailable Unavailable Hawkins Kika, A Jaida PA Unavailable Unavailable Hawkins Kika, A Jaida PA Unavailable Unavailable Hawkins Kika, A Jaida PA Unavailable Unavailable Hawkins Kika, A Jaida PA Unavailable Unavailable Hawkins Kika, A Jaida PA Unavailable Unavailable Hawkins Kika, A Jaida PA Unavailable Unavailable Hawkins Kika, A Jaida PA Unavailable Unavailable Hawkins Kika, A Jaida PA Unavailable Unavailable Hawkins Kika, A Jaida PA Unavailable Unavailable Hawkins Kika, A Jaida PA Unavailable Unavailable Hawkins Kika, A Jaida PA Unavailable Unavailable Hawkins Kika, A Jaida PA Unavailable Unavailable Hawkins Kika, A Jaida PA Unavailable Unavailable Hawkins Kika, A Jaida PA Unavailable Unavailable Hawkins Kika, A Jaida PA Unavailable Unavailable Hawkins Kika, A Jaida PA Unavailable Unavailable Hawkins Kika, A Jaida PA Unavailable Unavailable Hawkins Kika, A Jaida PA Unavailable Unavailable Hawkins Kika, A Jaida PA Unavailable Unavailable Ibis Fields COMMERCIAL FRONT LOAD OPERATOR Unavailable Unavailable Tibbits, Ibis Bella COMMERCIAL FRONT LOAD OPERATOR Unavailable Unavailable Tibbits, Ibis Bella COMMERCIAL FRONT LOAD OPERATOR Unavailable Unavailable Tibbits, Ibis Bella COMMERCIAL FRONT LOAD OPERATOR Unavailable Unavailable Tibbits, Ibis Bella COMMERCIAL FRONT LOAD OPERATOR Unavailable Unavailable Tibbits, Ibis Bella COMMERCIAL FRONT LOAD OPERATOR Unavailable Unavailable Tibbits, Ibis Bella COMMERCIAL FRONT LOAD OPERATOR Unavailable Unavailable Tibbits, Ibis Bella COMMERCIAL FRONT LOAD OPERATOR Unavailable Unavailable Tibbits, Ibis Bella COMMERCIAL FRONT LOAD OPERATOR Unavailable Unavailable Tibbits, Ibis Bella COMMERCIAL FRONT LOAD OPERATOR Unavailable Unavailable Tibbits, Ibis Bella COMMERCIAL FRONT LOAD OPERATOR Unavailable Unavailable Tibbits, Ibis Bella COMMERCIAL FRONT LOAD OPERATOR Unavailable Unavailable Tibbits, Ibis Bella COMMERCIAL FRONT LOAD OPERATOR Unavailable Unavailable Tibbits, Ibis Bella COMMERCIAL FRONT LOAD OPERATOR Unavailable Unavailable Tibbits, Ibis Bella COMMERCIAL FRONT LOAD OPERATOR Unavailable Unavailable Tibbits, Ibis Bella COMMERCIAL FRONT LOAD OPERATOR Unavailable Unavailable Tibbits, Ibis Bella COMMERCIAL FRONT LOAD OPERATOR Unavailable Unavailable Tibbits, Ibis Bella COMMERCIAL FRONT LOAD OPERATOR Unavailable Unavailable Tibbits, Ibis Bella COMMERCIAL FRONT LOAD OPERATOR Unavailable Unavailable Tibbits, Ibis Bella COMMERCIAL FRONT LOAD OPERATOR Unavailable Unavailable Tibbits, Ibis Bella COMMERCIAL FRONT LOAD OPERATOR Unavailable Unavailable Tibbits, Ibis Bella COMMERCIAL FRONT LOAD OPERATOR Unavailable Unavailable Tibbits, Ibis Bella COMMERCIAL FRONT LOAD OPERATOR Unavailable Unavailable Tibbits, Ibis Bella COMMERCIAL FRONT LOAD OPERATOR Unavailable Unavailable Tibbits, Ibis Bella COMMERCIAL FRONT LOAD OPERATOR Unavailable Unavailable Tibbits, Ibis Bella COMMERCIAL FRONT LOAD OPERATOR Unavailable Unavailable Tibbits, Ibis Bella COMMERCIAL FRONT LOAD OPERATOR Unavailable Unavailable Tibbits, Ibsi Bella COMMERCIAL FRONT LOAD OPERATOR Unavailable Unavailable Tibbits, Ibis Bella COMMERCIAL FRONT LOAD OPERATOR Unavailable Unavailable Tibbits, Ibis Bella COMMERCIAL FRONT LOAD OPERATOR Unavailable Unavailable Tibbits, Ibis Bella COMMERCIAL FRONT LOAD OPERATOR Unavailable Unavailable Tibbits, Ibis Bella COMMERCIAL FRONT LOAD OPERATOR Unavailable Unavailable Tibbits, Ibis Bella COMMERCIAL FRONT LOAD OPERATOR Unavailable Unavailable Tibbits, Ibis Bella COMMERCIAL FRONT LOAD OPERATOR Unavailable Unavailable Tibbits, Ibis Bella COMMERCIAL FRONT LOAD OPERATOR Unavailable Unavailable Tibbits, Ibis Bella COMMERCIAL FRONT LOAD OPERATOR Unavailable Unavailable Tibbits, Ibis Bella COMMERCIAL FRONT LOAD OPERATOR Unavailable Unavailable Tibbits, Ibis Bella COMMERCIAL FRONT LOAD OPERATOR Unavailable Unavailable Tibbits, Ibis Bella COMMERCIAL FRONT LOAD OPERATOR Unavailable Unavailable Tibbits, Ibis Bella COMMERCIAL FRONT LOAD OPERATOR Unavailable Unavailable Tibbits, Ibis Bella COMMERCIAL FRONT LOAD OPERATOR Unavailable Unavailable Tibbits, Ibis Bella COMMERCIAL FRONT LOAD OPERATOR Unavailable Unavailable KHAIRALLAH, RAMZI MD Unavailable Unavailable [...] Unavailable Abdulky, Xiao MD Unavailable Unavailable Abdulky, Xioa MD Unavailable Unavailable Abdulky, Xiao MD Unavailable [...] is protected by Article 27-F of the [facility] Public Health law. If you continue you may have access to information: Regarding HIV / AIDS; Provided by facilities licensed or operated by the [facility] Office of Mental Health; or Provided by the [facility] Office for People With Developmental Disabilities. If such information is present, then the following [facility] mandated warning applies: This information has [...] law may result in a fine or skilled nursing sentence or both. A general authorization for the release of medical or other information is NOT sufficient authorization for further disc losure. Family History Family Member Name Family Member Gender Family Member Status Date o f Status Description Data Source(s) Unknown Unknown Problem [facility] ([facility], ) Unknown Male Problem (finding) 01/10/2017 [...] Source(s ) Outpatient Attender: HANNAH HUSAIN MD [facility] 11/2020 01:00:00 PM EDT [facility] ([facility] Attender: Xiao Ryena MD [facility] 02/19/2021 10:00:00 AM EDT - 02/19/2021 10:00:00 AM EDT Rheumatoid arthritis with rheumatoid fac tor of multiple sites without organ or systems involvement [facility] ([facility]) Rheumatoid arthritis with rheumatoid fac tor of multiple sites without organ or systems involvement Attender: Jaida VALENTIN [facility] 02/13/2021 12:17:00 PM EDT - 02/13/2021 12:17:00 PM EDT [facility] ( [facility]) Attender: Bella DIAP [facility] 02/09/2021 11:34:00 AM EDT - 02/09/2021 11:34:00 AM EDT [facility] ( [facility]) Attender: Xiao Reyna MD [facility] 02/09/2021 11:15:00 AM EDT - 02/09/2021 11:15:00 AM EDT [facility] ([facility]) Attender: Jaida VALENTIN [facility] 02/09/2021 11:15:00 AM EDT - 02/09/2021 11:15:00 AM EDT [facility] ( [facility]) Attender: MERRILL JACOBSEN [facility] 01/18/2021 01:20:00 PM EDT - 01/18/2021 01:20:00 PM EDT Rheumatoid arthritis with rheumatoid factor of multiple sites without organ or systems involvement [facility] ([facility]) Rheumatoid arthritis with rheumatoid fac tor of multiple sites without organ or systems involvement Attender: Jaida VALENTIN [facility] 01/17/2021 09:03:00 AM EDT - 01/17/2021 09:03:00 AM EDT [facility] OFFICE/OUTPATIENT VISIT, ESTOutpatient Attender: Jaida VALENTIN [facility] 01/12/2021 01:20:00 PM EDT - 01/12/2021 01:20:00 PM EDT Other jail (current) drug therapyTr emor, unspecifiedRheumatoid arthritis with rheumatoid factor of multiple sites without organ or systems involvement [facility] ([facility]) Other dedicated intermodal truck driver (current) drug therapy Tremor, unspecified Rheumatoid arthritis with rheumatoid fac tor of multiple sites without organ or systems involvement Attender: Xiao Reyna MD [facility] 12/21/2020 12:40:00 PM EDT - 12/21/2020 12:40:00 PM EDT Rheumatoid arthritis with rheumatoid fac tor of multiple sites without organ or systems involvement [facility] ([facility]) Rheumatoid arthritis with rheumatoid fac tor of multiple sites without organ or systems involvement Attender: PARVIZ VALENTIN [facility] 12/19/2020 03:09:00 PM EDT - 12/19/2020 03:09:00 PM EDT [facility] ( [facility]) Attender: Xiao Reyna MD [facility] 11/22/2020 01:08:00 PM EST - 11/22/2020 01:08:00 PM EST [facility] ([facility]) Attender: MERRILL JACOBSEN [facility] 11/22/2020 11:20:00 AM EST - 11/22/2020 11:20:00 AM EST Rheumatoid arthritis with rheumatoid factor of multiple sites without organ or systems involvement [facility] ([facility]) Rheumatoid arthritis with rheumatoid fac tor of multiple sites without organ or systems involvement Attender: Xiao Reyna MD [facility] 11/20/2020 03:02:00 PM EST - 11/20/2020 03:02:00 PM EST [facility] ([facility]) [facility]: [facility] 10:33:00 AM EST - 10/24/2020 10:33:00 AM EST [facility] ([facility]) Attender: Bella ROBB [facility] 10/24/2020 10:33:00 AM EST - 10/24/2020 10:33:00 AM EST [facility] ( [facility]) [facility]: [facility] 10/20/2020 10:40:00 AM EST - 10/20/2020 10:40:00 AM EST Rheumatoid arthritis with rheumatoid fac tor of multiple sites without organ or systems involvement [facility] ([facility]) Rheumatoid arthritis with rheumatoid fac tor of multiple sites without organ or systems involvement Attender: PARVIZ VALENTIN [facility] 10/18/2020 02:27:00 PM EST - 10/18/2020 02:27:00 PM EST [facility] ( [facility]) Outpatient Attender: HANNAH HUSAIN MD [place] [facility] 12:00:00 PM EST [facility] OFFICE/OUTPATIENT VISIT, ESTOutpatient Attender: PARVIZ VALENTIN [facility] 09/27/2020 11:16:00 AM EST - 09/27/2020 11:16:00 AM ES T Other jail (current) drug therapyRheumatoid arthritis with rheumatoid factor of multiple sites without organ or systems involvement [facility] ([facility]) Other jail (current) drug therapy Rheumatoid arthritis with rheumatoid fac tor of multiple sites without organ or systems involvement Att[facility]: [facility]iao Reyna [facility] 09/21/2020 11:40:00 AM EST - 09/21/2020 11:40:00 AM EST Rheumatoid arthritis with rheumatoid fac tor of multiple sites without organ or systems involvement [facility] ([facility]) Rheumatoid arthritis with rheumatoid fac tor of multiple sites without organ or systems involvement Attender: Bella Fields [facility] 09/19/2020 10:38:00 AM EST - 09/19/2020 10:38:00 AM EST [facility] ( [facility]) Attender: Bella Fields [facility] 08/15/2020 09:31:00 AM EST - 08/15/2020 09:31:00 AM EST [facility] ( [facility]) Attender: Xiao Reyna MD [facility] 07/13/2020 12:00:00 PM EDT - 07/13/2020 12:00:00 PM EDT Rheumatoid arthritis with rheumatoid fac tor of multiple sites without organ or systems involvement [facility] ([facility]) Rheumatoid arthritis with rheumatoid fac tor of multiple sites without organ or systems involvement Attender: Bella Fields [facility] 06/27/2020 11:40:00 AM EDT - 06/27/2020 11:40:00 AM EDT Tremor, unspecifiedRheumatoid arthritis with rheumatoid factor of multiple sites without organ or systems involvementOther jail (current) drug therapyDorsalgia, unspecified [facility] ([facility]) Tremor, unspecified Rheumatoid arthritis with rheumatoid fac tor of multiple sites without organ or systems involvement Other dedicated intermodal truck driver (current) drug therapy Dorsalgia, unspecified Attender: MERRILL JACOBSEN MD [facility] 06/14/2020 01:00:00 PM EDT - 06/14/2020 01:00:00 [...] Complete: YESThis Data wa s Submitted to [facility] Via [facility]. Covid 19 Moderna Vaccine 11/24/2020 12:00:00 AM EST completed Covid 19 Moderna Vaccine [facility] ([facility]) Source: Other Provider COVID-19 VACCINE Moderna 11/24/2020 12:00:00 AM EST completed NYSIIS Vaccine Series Complete: NOThis Data was Submitted to [facility] Via [facility]. pneumococcal polysaccharide PPV23 10/11/2020 11:56:00 AM EST comple lucila [facility] ([facility] Influenza, injectable, MDCK, preservative free, myrna valent 07/19/2020 12:00:00 AM EST completed Flucelvax [facility] ([facility]) Note: approx ; Source: [...] route 2 times every day after meals [facility] Hydroxychloroquine Sulfate 200 MG Oral T ablet HYDROXYCHLOROQUINE 200MG TABLET TB HYDROXYCHLOROQUINE 200MG TABLET TB 02/09/2021 12:00:00 AM EDT 1 {tbl} ORAL active TAKE 1 TABLET BY ATTILA TH TWICE DAILY [facility]) Folic Acid 1 MG Oral Tablet folic acid 1 mg tablet folic aci d 1 mg tablet 02/09/2021 12:00:00 AM EDT 1 {tbl} ORAL active take 1 Tablet by oral route every day [facility]) 50 mg 02/01/2021 12:00:00 [...] active TAKE 1 TABLET BY MOUTH DAILY [facility]) Folic Acid 1 MG Oral Tablet FOLIC ACID TAB 1MG FOLIC ACID TA B 1MG 11/22/2020 12:00:00 AM EST 1 {tbl} ORAL completed TAKE 1 TABLET BY MOUTH DAILY [facility] ([facility]) leflunomide 20 MG Oral Tablet LEFLUNOMIDE 20MG TAB LEFLUNO MIDE 20MG TAB 11/22/2020 12:00:00 AM EST completed TAKE 1 TABLET BY MOUTH DAILY [facility] ([facility]) Sulfasalazine 500 MG Oral Tablet SULFASALAZINE 500MG TAB SULFASALAZINE 500MG TAB 11/22/2020 12:00:00 AM EST 2 {tbl} ORAL completed TAKE 2 TABLETS BY MOUTH TWICE DAILY AFTER MEALS [facility] ([facility]) 50 mg 11/20/2020 12:00:00 AM [...] 1 Tablet by oral route every day [facility] ([facility]) Sulfasalazine 500 MG Oral Tablet sulfasalazine 500 mg tablet sulfasalazine 500 mg tablet 09/21/2020 12:00:00 AM EST 2 {tbl} ORAL complet ed take 2 Tablet by oral route 2 times every day after meals [facility] ([facility]) leflunomide 20 MG Oral Tablet leflunomide 20 mg tablet leflu nomide 20 mg tablet 09/21/2020 12:00:00 AM EST completed TAKE 1 TABLET BY MOUTH EVERY DAY [facility]) 50 mg 08/16/2020 12:00:00 AM [...] HCL 08/15/2020 12:00:00 AM EST active [facility] ([facility] 500 mg 06/28/2020 [...] 1 Tablet by oral route every day [facility] ([facility]) leflunomide 20 MG Oral Tablet leflunomide 20 mg tablet leflu nomide 20 mg tablet 06/27/2020 12:00:00 AM EDT completed TAKE 1 TABLET BY MOUTH EVERY DAY [facility] ([facility]) Hydroxychloroquine Sulfate 200 MG Oral Tablet hydroxyc hloroquine 200 mg tablet hydroxychloroquine 200 mg tablet 06/27/2020 12:00:00 AM EDT 1 {tbl} ORAL completed take 1 Tablet by oral route 2 ti mes every day [facility] ([facility]) Sulfasalazine 500 MG Oral Tablet sulfasalazine 500 mg tablet sulfasalazine 500 mg tablet 06/27/2020 12:00:00 AM EDT 2 {tbl} ORAL complet ed take 2 Tablet by oral route 2 times every day after meals [facility]) 5 mg 06/10/2020 12:00:00 [...] reid Policy Reid Plan Information MEDICARE COMPLETE [id number] MEDICARE COMPLETE [id number] UHC UNITED MEDICARE COMPLETE G [id number] Self [id number] U[employer] UNITED MEDICARE COMPLETE G [id number] Self [id number] [facility] Medicare Commercial [id number] Self [id number] MEDICARE COMPLETE [id number] [facility] [id number] [facility] [id number] [employer] Medicare Commercial [id number] Self [id number] MEDICARE COMPLETE [id number] 94 [id number] [employer] Medicare Commercial [id number] Self [id number] Problems, Conditions, and Diagnoses No Information Surgeries/Procedures [...] - 01/12/2021 12:00:00 AM EDT [facility] ([facility] ALANINE AMINO (ALT) (SGPT) 01/12/2021 12 :00:00 AM EDT - 01/12/2021 12:00:00 AM EDT [facility] ([facility]) TRANSFERASE (AST) (SGOT) 01/12/2021 12:0 0:00 AM EDT - 01/12/2021 12:00:00 AM EDT [facility] ASSAY OF UREA NITROGEN 01/12/2021 12:00: 00 AM EDT - 01/12/2021 12:00:00 AM EDT [facility]) ASSAY OF CREATININE 01/12/2021 12:00:00 AM EDT - 01/12 12:00:00 AM EDT [facility] ([facility]) C-REACTIVE PROTEIN 01/12/2021 12:00:00 AM EDT - 2020 12:00:00 AM EDT [facility] ([facility]) RBC SED RATE, AUTOMATED 01/12/2021 12:00 :00 AM EDT - 01/12/2021 12:00:00 AM EDT [facility] COMPLETE CBC W/AUTO DIFF WBC 01/12/2021 12:00:00 AM EDT - 01/12/2021 12:00:00 AM EDT [facility] ROUTINE VENIPUNCTURE 01/12/2021 12:00:00 AM EDT - 01/12/2021 12:00:00 AM EDT [facility] ([facility]) Normal saline solution infus 12/21/2020 12:00:00 AM EDT - 12/21/2020 12:00:00 AM EDT [facility] Actemra (tocilizumab 1 Mg) 12/21/2020 12 :00:00 AM EDT - 12/21/2020 12:00:00 AM EDT [facility] CHEMO, IV INFUSION, 1 HR 12/21/2020 12:0 [...] AM EST - 09/21/2020 12:00:00 AM EST [facility] ASSAY OF CREATININE 09/21/2020 12:00:00 AM EST - 09/21 12:00:00 AM EST [facility]) C-REACTIVE PROTEIN 09/21/2020 12:00:00 AM EST - 2020 12:00:00 AM EST [facility] ([facility]) RBC SED RATE, AUTOMATED 09/21/2020 12:00 :00 AM EST - 09/21/2020 12:00:00 AM EST [facility] COMPLETE CBC W/AUTO DIFF WBC 09/21/2020 12:00:00 AM EST - 09/21/2020 12:00:00 AM EST [facility] ROUTINE VENIPUNCTURE 09/21/2020 12:00:00 AM EST - 09/21/2020 12:00:00 AM EST [facility]) Results ID Date Data Source [id number] 01/12/2021 11:54:00 AM EDT [facility]) Name Value Range Interpretation Code Description Data Vida rce(s) Supporting Document(s) <0.2 0.0-0.5 CRP [facility] ([facility]) ID Date Data Source [id number] 01/12/2021 11:54:00 AM EDT [facility] ([facility]) Name Value Range Interpretation Code Description Data Vida rce(s) Supporting Document(s) 1.0 mg/dL 0.9-1.2 CREATININE [facility] ([facility]) >60 eGFR Non- [facility] ([facility]) >60 eGFR [facility] ([facility]) ID Date Data Source [id number] 01/12/2021 11:54:00 AM EDT [facility] ([facility]) Name Value Range Interpretation Code Description Data Vida rce(s) Supporting Document(s) 10 mg/dL 10-23 BUN [facility] ID Date Data Source [id number] 01/12/2021 11:54:00 AM EDT [facility] ([facility]) Name Value Range Interpretation Code Description Data Vida rce(s) Supporting Document(s) 18 U/L 15-37 AST [facility] ([facility]) ID Date Data Source [id number] 01/12/2021 11:54:00 AM EDT [facility] ([facility]) Name Value Range Interpretation Code Description Data Vida rce(s) Supporting Document(s) 41 U/L 30-65 ALT [facility] ([facility]) ID Date Data Source [id number] 01/12/2021 11:54:00 AM EDT [facility] ([facility]) Name Value Range Interpretation Code Description Data Vida rce(s) Supporting Document(s) 4.1 g/dL 3.4-4.4 ALB [facility] ([facility]) ID Date Data Source [id number] 01/12/2021 11:54:00 AM EDT [facility] ([facility]) Name Value Range Interpretation Code Description Data Vida rce(s) Supporting Document(s) 2 mm/Hr 0-20 ESR [facility] ID Date Data Source [id number] 01/12/2021 11:54:00 AM EDT [facility] ID Date Data Source [id number] 09/21/2020 01:10:00 PM EST [facility] ([facility]) Name Value Range Interpretation Code Description Data Vida rce(s) Supporting Document(s) 0.4 mg/dL 0.0-0.5 CRP [facility] ([facility]) ID Date Data Source [id number] 09/21/2020 01:10:00 PM EST [facility] ([facility]) Name Value Range Interpretation Code Description Data Vida rce(s) Supporting Document(s) 1.0 mg/dL 0.9-1.2 CREATININE [facility] ([facility]) >60 eGFR Non- Next Gen ([facility]) >60 eGFR [facility] ([facility]) ID Date Data Source [id number] 09/21/2020 01:10:00 PM EST [facility] ([facility]) Name Value Range Interpretation Code Description Data Vida rce(s) Supporting Document(s) 19 U/L 15-37 AST [facility] ([facility]) ID Date Data Source [id number] 09/21/2020 01:10:00 PM EST [facility] ([facility]) Name Value Range Interpretation Code Description Data Vida rce(s) Supporting Document(s) 27 U/L 30-65 Below low normal ALT [facility] ([facility]) ID Date Data Source [id number] 09/21/2020 01:10:00 PM EST [facility] ([facility]) Name Value Range Interpretation Code Description Data Vida rce(s) Supporting Document(s) 3.3 g/dL 3.4-4.4 Below low normal ALB NextGen ([facility]) ID Date Data Source [id number] 09/21/2020 01:10:00 PM EST [facility] ([facility]) Name Value Range Interpretation Code Description Data Vida rce(s) Supporting Document(s) 18 mm/Hr 0-20 ESR [facility] ID Date Data Source [id number] 09/21/2020 01:10:00 PM EST [facility] ([facility]) 73.8 % 50.0-80.0 NOHELIA% [facility] ([facility]) 1.8 % 0.0-5.0 EOS% [facility] ([facility]) 9.5 % 2.0-10.0 MONO% [facility] ([facility]) 2.1 % 0.0-4.0 BASO% [facility] ([facility]) Procedure Social History Code Duration Value Status Description Data Source(s ) Caffeine Use Details 02/19/2021 12:00:00 AM EDT completed and coffee, 1 cup [facility] ([facility]) Smoking 02/19/2021 12:00:00 AM EDT Unknown if ever smoked comp leted Unknown if ever smoked [facility] ([facility]) 01/12/2021 12:00:00 AM EDT Chews tobacco completed Chews tobacco [facility] ([facility]) Vital Signs ID Date Data Source [id number] Name Value Range Interpretation Code Description Data Source(s) Body mass index (BMI) [Ratio] 31.6 kg/m2 31.6 k g/m2 [facility] ([facility] Systolic blood pressure 144 mm[Hg] 144 mm[Hg] M EDENT ([facility] Diastolic blood pressure 84 mm[Hg] 84 mm[Hg] [facility] ([facility] Body temperature 98.6 [degF] 98.6 [degF] [facility] ([facility] Heart rate 66 /min 66 /min [facility] ([facility] Respiratory rate 14 /min 14 /min [facility] ( [facility] Body height 68 [in_i] 68 [in_i] [facility] ([facility] 5'8" Body weight 208.00 [lb_av] 208.00 [lb_av] MEDEN T ([facility] Bruce body weight 154 [lb_av] 154 [lb_av] MEDEN T ([facility] Oxygen saturation in Arterial blood by Pulse oximetry 95 % 95 % [facility] ([facility] Systolic blood pressure [...] 172.72 cm [facility] Systolic blood [...] Overweight 28.43 kg/m2 [facility] ([facility]) Body weight 84.822 kg 84.822 kg [facility] ([facility] Systolic blood pressure 142 mm[Hg] [...] 86 mm[Hg] Next[facility] ([facility]) Body temperature 36.39 Christine 36.39 Christine [facility] ([facility]) Body height 172.72 cm 172.72 cm [facility] ([facility] Body weight 92.533 kg 92.533 kg [facility] ([facility] Systolic blood pressure 124 mm[Hg] 124 mm[Hg] N extGen ([facility]) Diastolic blood pressure 86 mm[Hg] 86 mm[Hg] Next[facility] ([facility]) Heart rate 76 /min 76 /min [facility] ([facility] Respiratory rate 16 /min 16 /min [facility] ([facility]) Body mass index (BMI) [Ratio] 31.02 kg/m2 Overweight 31.02 kg/m2 Next[facility] ([facility]) Respiratory rate 14 /min 14 /min [facility] ( [facility] Systolic blood pressure 138 mm[Hg] 138 mm[Hg] M EDENT ([facility] Diastolic blood pressure 88 mm[Hg] 88 mm[Hg] [facility] ([facility] Heart rate 80 /min 80 /min [facility] ([facility] Body weight 207.00 [lb_av] 207.00 [lb_av] MEDEN T ([facility] Systolic blood pressure [...]
[2021-07-23 14:07] VITALS: BP 120/72
== END 2021-07-23 14:15 | disposition short-term general hospital (02) ==
LOC: M ED 12:19
DX: S06.369A Traumatic hemorrhage of cerebrum, unspecified, with loss of consciousness of unspecified duration, initial encounter (principal); W19.XXXA Unspecified fall, initial encounter; Y92.009 Unspecified place in unspecified non-institutional (private) residence as the place of occurrence of the external cause; Y93.9 Activity, unspecified; Y99.9 Unspecified external cause status; J32.0 Chronic maxillary sinusitis; K21.9 Gastro-esophageal reflux disease without esophagitis; M06.9 Rheumatoid arthritis, unspecified; Z88.0 Allergy status to penicillin; Z79.899 Other long term (current) drug therapy
CPT/HCPCS: 31500; 51702; 70450; 71045; 72125; 80047; 80048; 80076; 84443; 85025; 85610; 85730; 86850; 86900; 86901; 93041; 94760; 96365; 96367; 96375; 99285; J0330; J2250

== ENCOUNTER 2021-09-06 14:08 | Observation (INO) | payer MEDICARE ==
[~2021-09-06] VITALS: Ht 172.7 cm; Wt 80.1 kg
[2021-09-06] MEDS ORDERED: SERT25TA85 PO (15:23)
[2021-09-06] MEDS ORDERED: SENN-80 PO (15:23)
[2021-09-06] MEDS ORDERED: AMLO1TAB25 PO (15:23)
[2021-09-06] MEDS ORDERED: REME15TA2 PO (15:23)
[2021-09-06] MEDS ORDERED: SULF500T2 PO (15:23)
[2021-09-06] MEDS ORDERED: META28.32 PO (15:24)
[2021-09-06] MEDS ORDERED: NS 500 ML IV ONE (15:25)
[2021-09-06] MEDS ORDERED: PROTPAK PO (15:28)
[2021-09-06] MEDS ORDERED: [UNRECOGNIZED DRUG - CODE] IV (15:32)
[2021-09-06] MEDS ORDERED: ASPI81CH33 PO (15:34)
[2021-09-06] MEDS ORDERED: LISI20TA33 PO (15:34)
[2021-09-06] MEDS ORDERED: HOME MED LIST COMPLETE! XX SCH (15:40)
--- NOTE | 2021-09-06 15:44 | REP ---
INDICATION: Altered Mental Status COMPARISON: 07/23/2021 TECHNIQUE: Axial noncontrast images from the skull base to the thoracic inlet with coronal reformations. This CT examination was performed using the following dose reduction techniques: Automated exposure control, adjustment of mA and/or kv according to the patient's size, and use of iterative reconstruction technique. FINDINGS: Low-density/early encephalomalacia in the left basal ganglia at the site of prior hemorrhagic infarction is identified measuring roughly 3.5 cm diameter. There is no residual or new acute hemorrhage. The ventricles are relatively symmetric and there is no significant mass effect. No extra-axial fluid collection. Calvarium is intact. Paranasal sinuses and mastoid air cells are clear. IMPRESSION: Atrophy and microvascular ischemic changes. Encephalomalacia at the site of recent prior hemorrhagic infarction No new acute intracranial hemorrhage, infarction, or mass/mass effect. <Electronically signed by Florin Payton > 09/06/21 [id number]
--- NOTE | 2021-09-06 15:51 | REP ---
INDICATION: Altered Mental Status. COMPARISON: 07/23/2021. TECHNIQUE: Single portable AP view of the chest was performed. FINDINGS: There is poor ventilation again noted. There are crowded lung markings in the lung bases bilaterally. No infiltrate is seen. The heart is not significantly enlarged. The mediastinal silhouette is unremarkable and unchanged. IMPRESSION: No acute pulmonary disease. <Electronically signed by Fred Balderrama > 09/06/21 [id number]
[2021-09-06 16:12] LABS: BASO # 0.2 10^3/uL (0.0-0.2); BASO % 1.6 % (0.0-1.0); EOS # 0.6 10^3/uL (0.0-0.5); HEMATOCRIT 37.9 % (42.0-52.0); HEMOGLOBIN 12.1 g/dl (13.5-17.5); LYMPH # 1.5 10^3/uL (1.5-5.0); LYMPH % 16.2 % (24.0-44.0); MEAN CORPUSCULAR HEMOGLOBIN 31.2 pg (27.0-33.0); MEAN CORPUSCULAR HGB CONC 31.9 g/dl (32.0-36.5); MEAN CORPUSCULAR VOLUME 97.7 fl (80.0-96.0); MONO # 1.2 10^3/uL (0.0-0.8); MONO % 13.2 % (2.0-8.0); NEUTROPHILS # 5.6 10^3/uL (1.5-8.5); NEUTROPHILS % 59.7 % (36.0-66.0); PLATELET COUNT, AUTOMATED 238 10^3/uL (150-450); RED BLOOD COUNT 3.88 10^6/uL (4.30-6.10); WHITE BLOOD COUNT 9.3 10^3/uL (4.0-10.0)
[2021-09-06 16:50] LABS: ALBUMIN 3.1 GM/DL (3.2-5.2); ALT/SGPT 36 U/L (12-78); BILIRUBIN,DIRECT 0.1 MG/DL (0.0-0.2); BILIRUBIN,TOTAL 0.4 MG/DL (0.2-1.0); BLOOD UREA NITROGEN 14 MG/DL (7-18); CALCIUM LEVEL 8.3 MG/DL (8.8-10.2); CARBON DIOXIDE LEVEL 22 MEQ/L (21-32); CHLORIDE LEVEL 111 MEQ/L (98-107); CREATININE FOR GFR 0.99 MG/DL (0.70-1.30); GLOMERULAR FILTRATION RATE > 60.0 (>49); GLUCOSE, FASTING 92 MG/DL (70-100); POTASSIUM SERUM 4.2 MEQ/L (3.5-5.1); SODIUM LEVEL 141 MEQ/L (136-145); THYROID STIMULATING HORMONE 0.916 uIU/ML (0.358-3.740); TOTAL PROTEIN 6.3 GM/DL (6.4-8.2)
[2021-09-06 17:19] LABS: OSMOLALITY SERUM 284 MOSM/KG (280-301)
[2021-09-06] MEDS ORDERED: levETIRAcetam INJection 1,000 MG in D5W 100 ML IV ONE (18:30)
[2021-09-06] MEDS ORDERED: DEXTROSE 50% 50 ML SYRINGE IV PRN (18:55)
[2021-09-06] MEDS ORDERED: GLUCOSE 4GM CHEW TABLET PO PRN (18:55)
[2021-09-06] MEDS ORDERED: GLUCAGON INJ 1MG VIAL SC PRN (18:55)
[2021-09-06 19:20] LABS: PROLACTIN 5.8 NG/ML (2.1-17.7)
--- NOTE | 2021-09-06 19:21 | HPEPDOC ---
[facility] Medical History & Physical Date of Admission Sep 06, 2021 Date of Service: Sep 06, 2021 Attending Physician: Smitha Pinzon History and Physical CHIEF COMPLAINT: [66 y/o male sent to our ED from [facility] for episode of altered consciousness, shaking] HISTORY OF PRESENT ILLNESS: [This is a 66 y/o male with a pmh of hemorrhagic cva in 08/05, rheumatoid arthritis, htn, gerd, depression/anxiety who presents to our ED from [facility] on 09/06 for evaluation of an episode of decreased consciousness and shaking that was observed by staff there. Patient is a poor historian and thus history is taken from ED staff. It is unclear to me at this time how long the episode lasted or if the shaking movements were tonic clonic in nature. Patient appears to have no history of epilepsy or seizure disorder. Patient is able to tell me that he is in no pain or discomfort. Patient is unable to tell me any details of his day.] PAST MEDICAL HISTORY: 1. [See HPI]. PAST SURGICAL HISTORY: 1. [Colonoscopy]. 2. [Cholecystectomy]. 3. [Tonsillectomy 4. Appendectomy]. SOCIAL HISTORY: Unable to obtain d/t mentation FAMILY HISTORY: Unable to obtain d/t mentation ALLERGIES: Please see below. REVIEW OF SYSTEMS: Unable to obtain d/t mentation HOME MEDICATIONS: Please see below. PHYSICAL EXAMINATION: VITAL SIGNS: Please see below. GENERAL APPEARANCE: [This is a 66 y/o male who is seated in the ED stretcher. He answers questions with a few words and is very aphasic. Patient does not make eye contact with speech. Patient noted to have tremor of the left hand. He does not appear to be in any acute distress]. HEENT: [No mass or lesion. EOMI. No scleral icterus. Nares patent. Oral mucosa moist]. CARDIOVASCULAR: [Regular rate, rhythm. No murmurs, rubs, gallops]. LUNGS: [Good air flow b/l. No wheezing, rales, rhonchi.]. ABDOMEN: [Soft, nontender]. MUSCULOSKELETAL: [No joint deformity. LUE tremor as mentioned in general]. EXTREMITIES: [No pedal edema appreciated. Pulses intact. No overlying skin changes]. NEUROLOGICAL: [Speech unclear. Difficult to assess neuro status in this patient]. PSYCHIATRIC: [Unclear how alert or oriented patient is at this time]. LABORATORY DATA: See below. IMAGING: [CXR: FINDINGS: There is poor ventilation again noted. There are crowded lung markings in the lung bases bilaterally. No infiltrate is seen. The heart is not significantly enlarged. The mediastinal silhouette is unremarkable and unchanged. IMPRESSION: No acute pulmonary disease. CT Head: FINDINGS: Low-density/early encephalomalacia in the left basal ganglia at the site of prior hemorrhagic infarction is identified measuring roughly 3.5 cm diameter. There is no residual or new acute hemorrhage. The ventricles are relatively symmetric and there is no significant mass effect. No extra-axial fluid collection. Calvarium is intact. Paranasal sinuses and mastoid air cells are clear. IMPRESSION: Atrophy and microvascular ischemic changes. Encephalomalacia at the site of recent prior hemorrhagic infarction No new acute intracranial hemorrhage, infarction, or mass/mass effect.] MICROBIOLOGY: Please see below. ASSESSMENT: [This is a 66 y/o male with a pmh of hemorrhagic cva in 08/05, rheumatoid arthritis, htn, gerd, depression/anxiety who presents to our ED from [facility] on 09/06 for evaluation of an episode of decreased consciousness and shaking that was observed by staff there. It is unclear to me at this time how long the episode lasted or if the shaking movements were tonic clonic in nature. Patient is unable to tell me any details of his day]. . PLAN: 1. [Possible Seizure Activity - I called and personally spoke with Dr. Dooley, neurology, who recommended patient be admitted to the hospital overnight on observation with frequent neuro checks and to begin keppra 750mg bid. Dr. Dooley does not feel an EEG is necessary at this time and believes if the patient has an uneventful night, it would be appropriate to discharge him in the AM and Dr. Dooley will see him in his office outpatient. - CT Head performed in the ED showing no acute changes - Patient received 1g keppra loading dose in the ED - Begin keppra 750mg bid - Neurochecks q4 overnight - Will keep pt on hand ii cutter - prolactin level ordered - Admit to pcu under obs 2. Severe aphasia - 2/2 recent hemorrhagic cva - ST eval, aspiration precautions 3. RA - continue plaquenil, sulfasalazine, low dose prednisone 4. HTN - continue amlodipine 5. GERD - continue protonix 6. Depression/anxiety - continue sertraline, mirtazapine DVT prophylaxis - mechanical]. Vital Signs Vital Signs Date Time Temp Pulse Resp B/P (MAP) Pulse Ox O2 Delivery O2 Flow Rate FiO2 09/06/21 18:01 98.8 75 20 146/94 (111) 96 Room Air Laboratory Data Labs 24H Laboratory Tests 2 09/06/21 15:23: Immature Granulocyte % (Auto) 3.3H, Neutrophils (%) (Auto) 59.7, Lymphocytes (%) (Auto) 16.2L, Monocytes (%) (Auto) 13.2H, Eosinophils (%) (Auto) 6.0H, Basophils (%) (Auto) 1.6H, Neutrophils # (Auto) 5.6, Lymphocytes # (Auto) 1.5, Monocytes # (Auto) 1.2H, Eosinophils # (Auto) 0.6H, Basophils # (Auto) 0.2, Nucleated Red Blood Cells % (auto) 0.0, Anion Gap 8, Glomerular Filtration Rate > 60.0, Osmolality 284, Lactic Acid Level 1.5, Calcium Level 8.3L, Total Bilirubin 0.4, Direct Bilirubin 0.1, Aspartate Amino Transf (AST/SGOT) 19, Alanine Am inotransferase (ALT/SGPT) 36, Alkaline Phosphatase 92, Ammonia 26, Total Protein 6.3L, Albumin 3.1L, Albumin/Globulin Ratio 1.0, Thyroid Stimulating Hormone (TSH) 0.916, Prolactin 5.8 09/06/21 16:33: POC Troponin I (Misc) 0.00 09/06/21 18:00: Urine Color REDH, Urine Appearance HAZY, Urine pH 6.0, Urine Specific [place] 1.006, Urine Protein 1+H, Urine Glucose (UA) NEGATIVE, Urine Ketones NEGATIVE, Urine Blood 2+H, Urine Nitrite NEGATIVE, Urine Bilirubin NEGATIVE, Urine Urobilinogen 0.2, Urine Leukocyte Esterase NEGATIVE, Urine WBC (Auto) 0, Urine RBC (Auto) TNTCH, Urine Hyaline Casts (Auto) 0, Urine Bacteria (Auto) NEGATIVE, Urine Squamous Epithelial Cells 0, Urine Sperm (Auto) CBC/BMP Laboratory Tests 09/06/21 15:23 Microbiology Microbiology 09/06/21 Respiratory Virus Panel (PCR) (VIDYA), Received Pending 09/06/21 Blood Culture, Received Pending 09/06/21 Blood Culture, Received Pending Home Medications Scheduled Amlodipine Besylate (Amlodipine Besylate) 10 Mg Tablet, 10 MG PO QHS Aspirin (Aspirin) 81 Mg Tab.chew, 81 MG PO DAILY Dextrose 5 % and 0.9 % NaCl (Dextrose 5%-0.9% NaCl IV Soln) 500 Ml Iv.soln, 80 ML IV DAILY [id number] Hydroxychloroquine Sulfate (Hydroxychloroquine Sulfate) 200 Mg Tab, 200 MG PO BID Leflunomide (Leflunomide) 20 Mg Tab, 20 MG PO DAILY Lisinopril (Lisinopril) 20 Mg Tablet, 20 MG PO DAILY Mirtazapine (Remeron) 15 Mg Tab.rapdis, 15 MG PO DAILY Pantoprazole Sodium (Protonix) 40 Mg Granpkt.dr, 40 MG PO DAILY Prednisone (Prednisone) 5 Mg Tab, 5 MG PO DAILY Psyllium Husk (with Sugar) (Metamucil Powder) 575 Gm Powder, 1 PKT PO BID Sennosides (Senna) 8.6 Mg Tablet, 17.2 MG PO DAILY Sertraline Hcl (Sertraline HCl) 25 Mg Tablet, 25 MG PO DAILY Sulfasalazine (Sulfasalazine) 500 Mg Tablet, 1,000 MG PO BID Allergies Coded Allergies: Penicillins (Verified Allergy, Unknown, 07/23/21) A-FIB/CHADSVASC A-FIB History Current/History of A-Fib/PAF?: No Current PO Anticoag Therapy: No LUCIANA BUI Sep 06, 2021 19:21
[2021-09-06] MEDS: D5W/0.45% SODIUM CHLORIDE 1,000 ML IV SCH (19:25)
[2021-09-06] MEDS: HYDROXYCHLOROQUINE 200 MG TAB PO SCH (21:00)
[2021-09-06] MEDS: sulfaSALAzine 500 MG TABEC PO SCH (21:00)
[2021-09-06 21:30] VITALS: BP 136/80
[2021-09-07] VITALS (8 sets, daily range): BP systolic 102–142; BP diastolic 61–81
[2021-09-07] MEDS: D5W/0.45% SODIUM CHLORIDE 1,000 ML IV SCH (05:48)
[2021-09-07 05:58] LABS: BASO # 0.2 10^3/uL (0.0-0.2); BASO % 1.7 % (0.0-1.0); EOS # 0.6 10^3/uL (0.0-0.5); EOS % 6.8 % (0.0-3.0); LYMPH # 1.6 10^3/uL (1.5-5.0); LYMPH % 18.6 % (24.0-44.0); MEAN CORPUSCULAR HEMOGLOBIN 31.2 pg (27.0-33.0); MEAN CORPUSCULAR HGB CONC 31.4 g/dl (32.0-36.5); MEAN CORPUSCULAR VOLUME 99.2 fl (80.0-96.0); MONO # 1.2 10^3/uL (0.0-0.8); MONO % 13.4 % (2.0-8.0); NEUTROPHILS # 4.8 10^3/uL (1.5-8.5); NEUTROPHILS % 55.9 % (36.0-66.0); PLATELET COUNT, AUTOMATED 204 10^3/uL (150-450); RED BLOOD COUNT 3.53 10^6/uL (4.30-6.10); WHITE BLOOD COUNT 8.6 10^3/uL (4.0-10.0)
[2021-09-07 06:30] LABS: BLOOD UREA NITROGEN 11 MG/DL (7-18); CALCIUM LEVEL 8.2 MG/DL (8.8-10.2); CARBON DIOXIDE LEVEL 25 MEQ/L (21-32); CHLORIDE LEVEL 110 MEQ/L (98-107); GLOMERULAR FILTRATION RATE > 60.0 (>49); GLUCOSE, FASTING 93 MG/DL (70-100); POTASSIUM SERUM 3.7 MEQ/L (3.5-5.1); SODIUM LEVEL 140 MEQ/L (136-145)
[2021-09-07] MEDS: levETIRAcetam INJection 750 MG in D5W 100 ML IV SCH ×2 (06:32→18:51)
--- NOTE | 2021-09-07 08:29 | ECGEPIP ---
[facility] - ED Test Date: 2021-09-06 Pat Name: JACKY TERRELL Department: Room: - Gender: Male Creative Manager: EMRE : 1955 Requested By: AMIRA Wick Order Number: [id number] Reading MD: Teja Sequeira Measurements Intervals [place] Rate: 73 P: 36 FL: 154 QRS: 7 QRSD: 78 T: 61 QT: 380 QTc: 418 Interpretive Statements Normal sinus rhythm POOR R WAVE PROGRESSION Electronically Signed on 09-07-2021 8:29:07 EST by Teja Sequeira
--- NOTE | 2021-09-07 11:08 | REP ---
INDICATION: hematutia COMPARISON: None TECHNIQUE: Real time werner scale ultrasound examination using curved array transducer. FINDINGS: Bilateral kidneys are normal in contour, size, echogenicity, and reniform shape. No hydronephrosis, nephrolithiasis, cystic or renal mass lesion. No perinephric fluid collection. Right kidney measures 12.3 x 6.7 x 5.1 cm. Left kidney measures 11.7 x 6[address] catheter identified in relatively normal appearing bladder. Bilateral ureteral jets were identified. IMPRESSION: 1. Normal renal ultrasound. <Electronically signed by Florin Payton > 09/07/21 0038
--- NOTE | 2021-09-07 11:09 | REP ---
INDICATION: hematutia COMPARISON: None TECHNIQUE: Real time B-mode ultrasound examination using curved array transducer. FINDINGS: Bladder is normal in appearance without wall thickening or mass lesion. Lane catheter in satisfactory position. Bilateral ureteral jets are identified. Prevoid bladder measures 9.7 x 7.8 x 8.9 cm IMPRESSION: 1. Normal bladder ultrasound. 2. Lane catheter in satisfactory position. <Electronically signed by Florin Payton > 09/07/21 1103
--- NOTE | 2021-09-07 11:36 | REP ---
INDICATION: AMS COMPARISON: 09/06/2021, 07/23/2021 TECHNIQUE: Axial noncontrast images from the skull base to the thoracic inlet with coronal reformations. This CT examination was performed using the following dose reduction techniques: Automated exposure control, adjustment of mA and/or kv according to the patient's size, and use of iterative reconstruction technique. FINDINGS: There is no change from the most recent prior examination dated 09/06/2021 which again demonstrates an area of forming and cephalo malacia in the left frontal lobe/basal ganglia at the site of previous large hemorrhagic infarction. Underlying atrophic changes are stable. The ventricles are symmetric and there is no evidence for acute edema or mass effect. No new area of hemorrhage or infarction is identified. No extra-axial fluid collection. IMPRESSION: No change from most recent prior examination dated 09/06/2021. <Electronically signed by Florin Payton > 09/07/21 [id number]
--- NOTE | 2021-09-07 12:01 | DS.PDOC ---
Discharge Summary General Date of Admission Sep 06, 2021 at 18:36 Date of Discharge 09/10/21 Discharge Summary PROCEDURES PERFORMED DURING STAY: [None]. 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 HISTORY OF PRESENT ILLNESS: This is a 66 y/o male with a pmh of hemorrhagic cva in 08/05, rheumatoid arthritis, htn, gerd, depression/anxiety who presents to our ED from [facility] on 09/06 for evaluation of an episode of decreased consciousness and shaking that was observed by staff there. Patient is a poor historian and thus history is taken from ED staff. It is unclear to me at this time how long the episode lasted or if the shaking movements were tonic clonic in nature. Patient appears to have no history of epilepsy or seizure disorder. Patient is able to tell me that he is in no pain or discomfort. Patient is unable to tell me any details of his day. HOSPITAL COURSE: 1. Possible Seizure Activity - I spoke to Dr. Dooley. S/p 1000 mg IV keppra in ER. No recommendation for EEG. To c/w keppra 750 mg BID. N - referral for outpatient neurology - CT Head performed in the ED showing no acute changes - c/w keppra 750mg bid - Neurochecks q4 have been unremarkable. - ST eval completed - repeat CT head 09/07/21 is unchanged - patient did have an isolated episode of rapid eye lid movement/eye movement, which stopped upon prompting patient. - I d/w with Miah, it is possible that patient is having mild seizures vs this being a behavioural process vs subclinical seizures. He will likely require a video EEG on an outpatient basis. At this time, neurology feels he is safe for DC to [facility] and will be following up with him in clinic. 2. Severe aphasia - 2/2 recent hemorrhagic cva - ST eval, aspiration precautions 3. RA - continue plaquenil, sulfasalazine, low dose prednisone 4. HTN - reduce dose of amlodipine to 5 mg daily - patient sister reports that he had an episode of hypotension upon repositioning - perhaps this was due to orthostasis from sitting to supine - we will check orthostats - applied compression stocking 5. GERD - continue protonix 6. Depression/anxiety - continue sertraline, mirtazapine 7. Paraphimosis - RN called to inform me that the gland penis is very swollen - noted to have foreskin greatly swollen and retracted, I suspect it was replaced after carlson catheter insertion - Dr. Adler from urology came to bedside and was successful in restoring foreskin over glans penis - we will DC carlson cath. Trial of void, PVR ordered. DISCHARGE MEDICATIONS: Please see below. ALLERGIES: Please see below. PHYSICAL EXAMINATION ON DISCHARGE: VITAL SIGNS: please see below General: NAD, comfortable HEENT: PERRLA, EOMI, sclerae clear Neck: supple, normal ROM, no JVD Respiratory: lungs CTAB, no wheeze, no rales, no crackles CVS: RRR, normal S1, S2, no murmurs Abdo: soft, no masses, no hepatosplenomegaly, BS+, no rebound tenderness Extremities: no edema, pulses 2+ MSK: no joint deformities, normal ROM Neuro: no focal neuro deficits, moving all 4 extremities, CN2-12 intact. Strength 4+ out of 5 on the left upper and lower extremity. Hemiplegia on the right side. Aphasia. Right-sided facial droop. Psych: calm, cooperative, AAO x 2-3 LABORATORY DATA: Please see below. IMAGING: CT head wo contrast (09/07/21): No change from most recent prior examination dated 09/06/2021. CXR: FINDINGS: There is poor ventilation again noted. There are crowded lung markings in the lung bases bilaterally. No infiltrate is seen. The heart is not significantly enlarged. The mediastinal silhouette is unremarkable and unchanged. IMPRESSION: No acute pulmonary disease. CT Head: FINDINGS: Low-density/early encephalomalacia in the left basal ganglia at the site of prior hemorrhagic infarction is identified measuring roughly 3.5 cm diameter. There is no residual or new acute hemorrhage. The ventricles are relatively symmetric and there is no significant mass effect. No extra-axial fluid collection. Calvarium is intact. Paranasal sinuses and mastoid air cells are clear. IMPRESSION: Atrophy and microvascular ischemic changes. Encephalomalacia at the site of recent prior hemorrhagic infarction No new acute intracranial hemorrhage, infarction, or mass/mass effect.] PROGNOSIS: good ACTIVITY: as per rehab, total assist. ongoing PT at [facility]. DIET: -Level 1 diet -[place] thick liquids -Meds crushed in puree assist -Staff assist for all PO intake -ST services 3-5x wk to facilitate tolerance of the safest, least restrictive diet DISCHARGE PLAN: DC to [facility]. Continue to take keppra 750 mg PO BID. F/u with [facility] 3-5 days. Follow up with neurology Dr. Dooley in 1-2 weeks. He may require a video EEG on an outpatient basis. Follow up with rheumatology in 1-2 weeks. DIS[facility]ITION[facility] DISCHARGE INSTRUCTIONS: . Please follow-up with your primary care doctor within 3-5 days . Please follow-up with neurology within 1-2 weeks . Please f/u rheumatology in 1-2 weeks. . Please take medications as prescribed. . If you develop bleeding, chest pain, shortness of breath, seizures, nausea, fevers, or otherwise worsening of your symptoms, please call 911 or return to the nearest emergency room ITEMS TO FOLLOWUP ON ON OUTPATIENT: Final blood cultures ensure neurology follow up. DISCHARGE CONDITION: [Stable]. TIME SPENT ON DISCHARGE: 35 minutes Vital Signs/I&Os Vital Signs Date Time Temp Pulse Resp B/P (MAP) Pulse Ox O2 Delivery O2 Flow Rate FiO2 09/07/21 08:59 98.0 59 18 124/71 (88) 96 Room Air I&O- Last 24 Hours up to 6 AM0 09/07/21 06:00 Intake Total 1010 ml Output Total 825 ml Balance 185 ml Laboratory Data Labs 24H Laboratory Tests 2 09/06/21 15:23: Immature Granulocyte % (Auto) 3.3H, Neutrophils (%) (Auto) 59.7, Lymphocytes (%) (Auto) 16.2L, Monocytes (%) (Auto) 13.2H, Eosinophils (%) (Auto) 6.0H, Basophils (%) (Auto) 1.6H, Neutrophils # (Auto) 5.6, Lymphocytes # (Auto) 1.5, Monocytes # (Auto) 1.2H, Eosinophils # (Auto) 0.6H, Basophils # (Auto) 0.2, Nucleated Red Blood Cells % (auto) 0.0, Anion Gap 8, Glomerular Filtration Rate > 60.0, Osmolality 284, Lactic Acid Level 1.5, Calcium Level 8.3L, Total Bilirubin 0.4, Direct Bilirubin 0.1, Aspartate Amino Transf (AST/SGOT) 19, Alanine Aminotransferase (ALT/SGPT) 36, Alkaline Phosphatase 92, Ammonia 26, Total Protein 6.3L, Albumin 3.1L, Albumin/Globulin Ratio 1.0, Thyroid Stimulating Hormone (TSH) 0.916, Prolactin 5.8 09/06/21 16:33: POC Troponin I (Misc) 0.00 09/06/21 18:00: Urine Color REDH, Urine Appearance HAZY, Urine pH 6.0, Urine Specific [place] 1.006, Urine Protein 1+H, Urine Glucose (UA) NEGATIVE, Urine Ketones NEGATIVE, Urine Blood 2+H, Urine Nitrite NEGATIVE, Urine Bilirubin NEGATIVE, Urine Urobilinogen 0.2, Urine Leukocyte Esterase NEGATIVE, Urine WBC (Auto) 0, Urine RBC (Auto) TNTCH, Urine Hyaline Casts (Auto) 0, Urine Bacteria (Auto) NEGATIVE, Urine Squamous Epithelial Cells 0, Urine Sperm (Auto) 09/07/21 05:32: Total Creatine Kinase 19L 09/07/21 05:36: Immature Granulocyte % (Auto) 3.6H, Neutrophils (%) (Auto) 55.9, Lymphocytes (%) (Auto) 18.6L, Monocytes (%) (Auto) 13.4H, Eosinophils (%) (Auto) 6.8H, Basophils (%) (Auto) 1.7H, Neutrophils # (Auto) 4.8, Lymphocytes # (Auto) 1.6, Monocytes # (Auto) 1.2H, Eosinophils # (Auto) 0.6H, Basophils # (Auto) 0.2, Nucleated Red Blood Cells % (auto) 0.0, Anion Gap 5L, Glomerular Filtration Rate > 60.0, Calcium Level 8.2L CBC/BMP Laboratory Tests 09/06/21 15:23 09/07/21 05:36 Microbiology Microbiology 09/06/21 Respiratory Virus Panel (PCR) (VIDYA) - Final, Complete 09/06/21 Blood Culture, Received Pending 09/06/21 Blood Culture, Received Pending Discharge Medications Scheduled Amlodipine Besylate (Amlodipine Besylate) 10 Mg Tablet, 10 MG PO QHS, (Reported) Amlodipine Besylate (Amlodipine Besylate) 5 Mg Tablet, 1 TAB PO DAILY Aspirin (Aspirin) 81 Mg Tab.chew, 81 MG PO DAILY, (Reported) Dextrose 5 % and 0.9 % NaCl (Dextrose 5%-0.9% NaCl IV Soln) 500 Ml Iv.soln, 80 ML IV DAILY, (Reported) [id number] Hydroxychloroquine Sulfate (Hydroxychloroquine Sulfate) 200 Mg Tab, 200 MG PO BID, (Reported) Leflunomide (Leflunomide) 20 Mg Tab, 20 MG PO DAILY, (Reported) Levetiracetam (Keppra) 750 Mg Tablet, 750 MG PO BID Lisinopril (Lisinopril) 20 Mg Tablet, 20 MG PO DAILY, (Reported) Mirtazapine (Remeron) 15 Mg Tab.rapdis, 15 MG PO DAILY, (Reported) Pantoprazole Sodium (Protonix) 40 Mg Granpkt.dr, 40 MG PO DAILY, (Reported) Prednisone (Prednisone) 5 Mg Tab, 5 MG PO DAILY, (Reported) Psyllium Husk (with Sugar) (Metamucil Powder) 575 Gm Powder, 1 PKT PO BID, (Reported) Sennosides (Senna) 8.6 Mg Tablet, 17.2 MG PO DAILY, (Reported) Sertraline Hcl (Sertraline HCl) 25 Mg Tablet, 25 MG PO DAILY, (Reported) Sulfasalazine (Sulfasalazine) 500 Mg Tablet, 1,000 MG PO BID, (Reported) Allergies Coded Allergies: Penicillins (Verified Allergy, Unknown, 07/23/21) HEATHER VENEGAS MD Sep 07, 2021 12:01
[2021-09-07] MEDS ORDERED: KEPP1TAB2 PO (12:06)
[2021-09-07] MEDS ORDERED: AMLO1TAB24 PO (12:08)
[2021-09-07] MEDS: ASPIRIN 81 MG CHEW TABLET PO SCH (12:15)
[2021-09-07] MEDS: SENNA 8.6 MG TAB (SENOKOT) PO SCH (12:15)
[2021-09-07] MEDS: SERTRALINE HCL 25 MG TABLET PO SCH (12:16)
[2021-09-07] MEDS: MIRTAZAPINE 15 MG TAB PO SCH (12:16)
[2021-09-07] MEDS: PANTOPRAZOLE 40MG TAB (PROTONIX) PO SCH (12:16)
[2021-09-07] MEDS: predniSONE 5 MG TAB PO SCH (12:17)
[2021-09-07] MEDS: sulfaSALAzine 500 MG TABEC PO SCH ×2 (12:17→20:38)
[2021-09-07] MEDS: HYDROXYCHLOROQUINE 200 MG TAB PO SCH ×2 (12:18→20:38)
--- NOTE | 2021-09-07 12:49 | IPNPDOC ---
Date Seen The patient was seen on 09/07/21. Progress Note SUBJECTIVE: Patient seen examined at bedside. He appears to be alert to person place. He is able to follow my commands. 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 Patient continues to have a tremor in his left hand which I have confirmed with the patient and his sister that he had prior to the hemorrhagic stroke and has seen Dr. Dooley for in the past. He comes to us from [facility] rehab for suspected seizure activity. Initial CT head in the ER was negative. He did not have additional seizures overnight. OBJECTIVE PHYSICAL EXAMINATION: VITAL SIGNS: please see below General: NAD, comfortable HEENT: PERRLA, EOMI, sclerae clear Neck: supple, normal ROM, no JVD Respiratory: lungs CTAB, no wheeze, no rales, no crackles CVS: RRR, normal S1, S2, no murmurs Abdo: soft, no masses, no hepatosplenomegaly, BS+, no rebound tenderness Extremities: no edema, pulses 2+ MSK: no joint deformities, normal ROM Neuro: no focal neuro deficits, moving all 4 extremities, CN2-12 intact. Strength 4+ out of 5 on the left upper and lower extremity. Hemiplegia on the right side. Aphasia. Right-sided facial droop. Psych: calm, cooperative, AAO x 3 LABORATORY DATA, IMAGING STUDIES, MICROBIOLOGY: Please see below. CT head wo contrast (09/07/21): No change from most recent prior examination dated 09/06/2021. DVT prophylaxis ordered?: SCDs and teds PROBLEMS: 1. Possible Seizure Activity - I spoke to Dr. Dooley. S/p 1000 mg IV keppra in ER. No recommendation for EEG. To c/w keppra 750 mg BID. N - referral for outpatient neurology - CT Head performed in the ED showing no acute changes - c/w keppra 750mg bid - Neurochecks q4 overnight - ST eval completed - repeat CT head this morning without any changes. 2. Severe aphasia - 2/2 recent hemorrhagic cva - ST eval, aspiration precautions 3. RA - continue plaquenil, sulfasalazine, low dose prednisone 4. HTN - reduce dose of amlodipine to 5 mg daily - patient sister reports that he had an episode of hypotension upon repositioning - perhaps this was due to orthostatis from sitting to supine - we will check orthostats - applyied compression stocking 5. GERD - continue protonix 6. Depression/anxiety - continue sertraline, mirtazapine 7. Paraphimosis - RN called to inform me that the gland penis is very swollen. Lane in place. - noted to have foreskin greatly swollen and retracted - Dr. Adler from urology came to bedside and was successful in restoring foreskin over glans penis DVT prophylaxis - mechanical Dispo: patient is medically cleared. Due to holiday, transportation to [facility] rehab is unable to be arranged due to staffing issues. We will await supervisor erection shop PFS on 09/09/21 for assistance. Patient transfered to [facility] status. VS, I&O, 24H, [facility] Vital Signs/I&O Vital Signs Date Time Temp Pulse Resp B/P (MAP) Pulse Ox O2 Delivery O2 Flow Rate FiO2 09/07/21 12:16 141/82 09/07/21 08:59 98.0 59 18 96 Room Air I&O- Last 24 Hours up to 6 AM 09/07/21 06:00 Intake Total 1010 ml Output Total 825 ml Balance 185 ml Laboratory Data 24H LABS Laboratory Tests 2 09/06/21 15:23: Immature Granulocyte % (Auto) 3.3H, Neutrophils (%) (Auto) 59.7, Lymphocytes (%) (Auto) 16.2L, Monocytes (%) (Auto) 13.2H, Eosinophils (%) (Auto) 6.0H, Basophils (%) (Auto) 1.6H, Neutrophils # (Auto) 5.6, Lymphocytes # (Auto) 1.5, Monocytes # (Auto) 1.2H, Eosinophils # (Auto) 0.6H, Basophils # (Auto) 0.2, Nucleated Red Blood Cells % (auto) 0.0, Anion Gap 8, Glomerular Filtration Rate > 60.0, Osmolality 284, Lactic Acid Level 1.5, Calcium Level 8.3L, Total Bilirubin 0.4, Direct Bilirubin 0.1, Aspartate Amino Transf (AST/SGOT) 19, Alanine Aminotransferase (ALT/SGPT) 36, Alkaline Phosphatase 92, Ammonia 26, Total Protein 6.3L, Albumin 3.1L, Albumin/Globulin Ratio 1.0, Thyroid Stimulating Hormone (TSH) 0.916, Prolactin 5.8 09/06/21 16:33: POC Troponin I (Misc) 0.00 09/06/21 18:00: Urine Color REDH, Urine Appearance HAZY, Urine pH 6.0, Urine Specific [place] 1.006, Urine Protein 1+H, Urine Glucose (UA) NEGATIVE, Urine Ketones NEGATIVE, Urine Blood 2+H, Urine Nitrite NEGATIVE, Urine Bilirubin NEGATIVE, Urine Urobilinogen 0.2, Urine Leukocyte Esterase NEGATIVE, Urine WBC (Auto) 0, Urine RBC (Auto) TNTCH, Urine Hyaline Casts (Auto) 0, Urine Bacteria (Auto) NEGATIVE, Urine Squamous Epithelial Cells 0, Urine Sperm (Auto) 09/07/21 05:32: Total Creatine Kinase 19L 09/07/21 05:36: Immature Granulocyte % (Auto) 3.6H, Neutrophils (%) (Auto) 55.9, Lymphocytes (%) (Auto) 18.6L, Monocytes (%) (Auto) 13.4H, Eosinophils (%) (Auto) 6.8H, Basophils (%) (Auto) 1.7H, Neutrophils # (Auto) 4.8, Lymphocytes # (Auto) 1.6, Monocytes # (Auto) 1.2H, Eosinophils # (Auto) 0.6H, Basophils # (Auto) 0.2, Nucleated Red Blood Cells % (auto) 0.0, Anion Gap 5L, Glomerular Filtration Rate > 60.0, Calcium Level 8.2L CBC/BMP Laboratory Tests 09/06/21 15:23 09/07/21 05:36 Microbiology Microbiology 09/06/21 Respiratory Virus Panel (PCR) (VIDYA) - Final, Complete 09/06/21 Blood Culture, Received Pending 09/06/21 Blood Culture, Received Pending HEATHER VENEGAS MD Sep 07, 2021 12:49
[2021-09-08] MEDS: levETIRAcetam INJection 750 MG in D5W 100 ML IV SCH (05:17)
[2021-09-08 06:00] VITALS: BP 106/66
[2021-09-08 06:39] LABS: BASO # 0.1 10^3/uL (0.0-0.2); BASO % 1.4 % (0.0-1.0); EOS # 0.5 10^3/uL (0.0-0.5); HEMATOCRIT 35.1 % (42.0-52.0); HEMOGLOBIN 11.2 g/dl (13.5-17.5); LYMPH # 1.7 10^3/uL (1.5-5.0); LYMPH % 21.6 % (24.0-44.0); MEAN CORPUSCULAR HEMOGLOBIN 31.5 pg (27.0-33.0); MEAN CORPUSCULAR HGB CONC 31.9 g/dl (32.0-36.5); MEAN CORPUSCULAR VOLUME 98.9 fl (80.0-96.0); MONO % 12.6 % (2.0-8.0); NEUTROPHILS # 4.3 10^3/uL (1.5-8.5); PLATELET COUNT, AUTOMATED 210 10^3/uL (150-450); RED BLOOD COUNT 3.55 10^6/uL (4.30-6.10); WHITE BLOOD COUNT 7.8 10^3/uL (4.0-10.0)
[2021-09-08 06:58] LABS: BLOOD UREA NITROGEN 8 MG/DL (7-18); CALCIUM LEVEL 8.4 MG/DL (8.8-10.2); CARBON DIOXIDE LEVEL 28 MEQ/L (21-32); CHLORIDE LEVEL 108 MEQ/L (98-107); CREATININE FOR GFR 0.88 MG/DL (0.70-1.30); GLOMERULAR FILTRATION RATE > 60.0 (>49); GLUCOSE, FASTING 106 MG/DL (70-100); SODIUM LEVEL 141 MEQ/L (136-145)
[2021-09-08] MEDS: PANTOPRAZOLE 40MG TAB (PROTONIX) PO SCH (09:28)
[2021-09-08] MEDS: SENNA 8.6 MG TAB (SENOKOT) PO SCH (09:28)
[2021-09-08] MEDS: sulfaSALAzine 500 MG TABEC PO SCH ×2 (09:29→21:06)
[2021-09-08] MEDS: HYDROXYCHLOROQUINE 200 MG TAB PO SCH ×2 (09:29→21:05)
[2021-09-08] MEDS: SERTRALINE HCL 25 MG TABLET PO SCH (09:29)
[2021-09-08] MEDS: MIRTAZAPINE 15 MG TAB PO SCH (09:29)
[2021-09-08] MEDS: ASPIRIN 81 MG CHEW TABLET PO SCH (09:29)
[2021-09-08] MEDS: predniSONE 5 MG TAB PO SCH (09:29)
[2021-09-08] MEDS: levETIRAcetam 250MG TABLET (KEPPRA) PO SCH (21:05)
[2021-09-09 06:00] VITALS: BP 120/76
[2021-09-09 06:41] LABS: BASO # 0.1 10^3/uL (0.0-0.2); BASO % 1.1 % (0.0-1.0); EOS # 0.4 10^3/uL (0.0-0.5); EOS % 3.8 % (0.0-3.0); HEMATOCRIT 37.1 % (42.0-52.0); HEMOGLOBIN 11.8 g/dl (13.5-17.5); LYMPH # 1.5 10^3/uL (1.5-5.0); LYMPH % 15.3 % (24.0-44.0); MEAN CORPUSCULAR HEMOGLOBIN 31.1 pg (27.0-33.0); MEAN CORPUSCULAR HGB CONC 31.8 g/dl (32.0-36.5); MEAN CORPUSCULAR VOLUME 97.9 fl (80.0-96.0); MONO # 1.4 10^3/uL (0.0-0.8); MONO % 13.7 % (2.0-8.0); NEUTROPHILS # 6.4 10^3/uL (1.5-8.5); NEUTROPHILS % 64.2 % (36.0-66.0); PLATELET COUNT, AUTOMATED 215 10^3/uL (150-450); RED BLOOD COUNT 3.79 10^6/uL (4.30-6.10); WHITE BLOOD COUNT 9.9 10^3/uL (4.0-10.0)
[2021-09-09 07:11] LABS: BLOOD UREA NITROGEN 11 MG/DL (7-18); CALCIUM LEVEL 8.7 MG/DL (8.8-10.2); CARBON DIOXIDE LEVEL 28 MEQ/L (21-32); CHLORIDE LEVEL 108 MEQ/L (98-107); CREATININE FOR GFR 1.03 MG/DL (0.70-1.30); GLOMERULAR FILTRATION RATE > 60.0 (>49); GLUCOSE, FASTING 94 MG/DL (70-100); POTASSIUM SERUM 4.4 MEQ/L (3.5-5.1); SODIUM LEVEL 142 MEQ/L (136-145)
[2021-09-09] MEDS: SERTRALINE HCL 25 MG TABLET PO SCH (08:47)
[2021-09-09] MEDS: MIRTAZAPINE 15 MG TAB PO SCH (08:47)
[2021-09-09] MEDS: ASPIRIN 81 MG CHEW TABLET PO SCH (08:47)
[2021-09-09] MEDS: predniSONE 5 MG TAB PO SCH (08:47)
[2021-09-09] MEDS: HYDROXYCHLOROQUINE 200 MG TAB PO SCH ×2 (08:47→20:41)
[2021-09-09] MEDS: PANTOPRAZOLE 40MG TAB (PROTONIX) PO SCH (08:47)
[2021-09-09] MEDS: SENNA 8.6 MG TAB (SENOKOT) PO SCH (08:48)
[2021-09-09] MEDS: levETIRAcetam 250MG TABLET (KEPPRA) PO SCH ×2 (08:48→20:41)
[2021-09-09] MEDS: sulfaSALAzine 500 MG TABEC PO SCH ×2 (08:48→20:41)
--- NOTE | 2021-09-09 09:55 | IPNPDOC ---
Date Seen The patient was seen on 09/09/21. Progress Note SUBJECTIVE: Patient seen examined at bedside. He appears to be alert to person and place. He is much more active today, he tells me his sister's name correctly. per RN, neuro checks have been unremarkable. OBJECTIVE PHYSICAL EXAMINATION: VITAL SIGNS: please see below General: NAD, comfortable HEENT: PERRLA, EOMI, sclerae clear Neck: supple, normal ROM, no JVD Respiratory: lungs CTAB, no wheeze, no rales, no crackles CVS: RRR, normal S1, S2, no murmurs Abdo: soft, no masses, no hepatosplenomegaly, BS+, no rebound tenderness Extremities: no edema, pulses 2+ MSK: no joint deformities, normal ROM Neuro: no focal neuro deficits, moving all 4 extremities, CN2-12 intact. Strength 4+ out of 5 on the left upper and lower extremity. Hemiplegia on the right side. Aphasia. Right-sided facial droop. Psych: calm, cooperative, AAO x 3 LABORATORY DATA, IMAGING STUDIES, MICROBIOLOGY: Please see below. CT head wo contrast (09/07/21): No change from most recent prior examination dated 09/06/2021. DVT prophylaxis ordered?: SCDs and teds PROBLEMS: 1. Possible Seizure Activity - I spoke to Dr. Dooley. S/p 1000 mg IV keppra in ER. No recommendation for EEG. To c/w keppra 750 mg BID. N - referral for outpatient neurology - CT Head performed in the ED showing no acute changes - c/w keppra 750mg bid - Neurochecks q4 have been unremarkable. - ST eval completed - repeat CT head 09/07/21 is unchanged - patient did have an isolated episode of rapid eye lid movement/eye movement, which stopped upon prompting patient. - I d/w with Miah, it is possible that patient is having mild seizures vs this being a behavioural process vs subclinical seizures. He will likely require a video EEG on an outpatient basis. At this time, neurology feels he is safe for DC to [facility] and will be following up with him in clinic. 2. Severe aphasia - 2/2 recent hemorrhagic cva - ST eval, aspiration precautions 3. RA - continue plaquenil, sulfasalazine, low dose prednisone 4. HTN - reduce dose of amlodipine to 5 mg daily - patient sister reports that he had an episode of hypotension upon repositioning - perhaps this was due to orthostasis from sitting to supine - we will check orthostats - applied compression stocking 5. GERD - continue protonix 6. Depression/anxiety - continue sertraline, mirtazapine 7. Paraphimosis - RN called to inform me that the gland penis is very swollen - noted to have foreskin greatly swollen and retracted, I suspect it was replaced after carlson catheter insertion - Dr. Adler from urology came to bedside and was successful in restoring foreskin over glans penis DVT prophylaxis - mechanical Dispo: patient is medically cleared. Due to holiday, transportation to [facility] rehab is unable to be arranged due to staffing issues. We will await taxation accountant PFS on 09/10/21 for assistance. Patient transferred to [facility] status. VS, I&O, 24H, Fishbone Vital Signs/I&O Vital Signs Date Time Temp Pulse Resp B/P (MAP) Pulse Ox O2 Delivery O2 Flow Rate FiO2 09/09/21 08:50 107/66 09/09/21 06:00 97.5 85 18 93 Room Air I&O- Last 24 Hours up to 6 AM 09/09/21 05:59 Intake Total 1054.5 ml Output Total 1525 ml Balance -470.5 ml Laboratory Data 24H LABS Laboratory Tests 2 09/09/21 06:19: Immature Granulocyte % (Auto) 1.9, Neutrophils (%) (Auto) 64.2, Lymphocytes (%) (Auto) 15.3L, Monocytes (%) (Auto) 13.7H, Eosinophils (%) (Auto) 3.8H, Basophils (%) (Auto) 1.1H, Neutrophils # (Auto) 6.4, Lymphocytes # (Auto) 1.5, Monocytes # (Auto) 1.4H, Eosinophils # (Auto) 0.4, Basophils # (Auto) 0.1, Nucleated Red Blood Cells % (auto) 0.0, Anion Gap 6L, Glomerular Filtration Rate > 60.0, Calcium Level 8.7L CBC/BMP Laboratory Tests 09/09/21 06:19 Microbiology Microbiology 09/06/21 Respiratory Virus Panel (PCR) (VIDYA) - Final, Complete 09/06/21 Blood Culture - Preliminary, Resulted No Growth after 48 hours. All Specime... 09/06/21 Blood Culture - Preliminary, Resulted No Growth after 48 hours. All Specime... HEATHER VENEGAS MD Sep 09, 2021 09:55
[2021-09-10 06:00] VITALS: BP 106/57
[2021-09-10 06:05] LABS: BASO # 0.1 10^3/uL (0.0-0.2); BASO % 1.6 % (0.0-1.0); EOS # 0.4 10^3/uL (0.0-0.5); EOS % 4.7 % (0.0-3.0); HEMATOCRIT 35.3 % (42.0-52.0); HEMOGLOBIN 11.1 g/dl (13.5-17.5); LYMPH # 2.3 10^3/uL (1.5-5.0); LYMPH % 27.4 % (24.0-44.0); MEAN CORPUSCULAR HGB CONC 31.4 g/dl (32.0-36.5); MEAN CORPUSCULAR VOLUME 98.6 fl (80.0-96.0); MONO # 1.2 10^3/uL (0.0-0.8); MONO % 13.8 % (2.0-8.0); NEUTROPHILS # 4.2 10^3/uL (1.5-8.5); NEUTROPHILS % 49.5 % (36.0-66.0); PLATELET COUNT, AUTOMATED 216 10^3/uL (150-450); RED BLOOD COUNT 3.58 10^6/uL (4.30-6.10); WHITE BLOOD COUNT 8.4 10^3/uL (4.0-10.0)
[2021-09-10 06:27] LABS: BLOOD UREA NITROGEN 13 MG/DL (7-18); CALCIUM LEVEL 8.2 MG/DL (8.8-10.2); CARBON DIOXIDE LEVEL 29 MEQ/L (21-32); CHLORIDE LEVEL 108 MEQ/L (98-107); CREATININE FOR GFR 0.98 MG/DL (0.70-1.30); GLOMERULAR FILTRATION RATE > 60.0 (>49); GLUCOSE, FASTING 82 MG/DL (70-100); POTASSIUM SERUM 4.1 MEQ/L (3.5-5.1); SODIUM LEVEL 142 MEQ/L (136-145)
[2021-09-10] MEDS: SENNA 8.6 MG TAB (SENOKOT) PO SCH (09:00)
[2021-09-10] MEDS: PANTOPRAZOLE 40MG TAB (PROTONIX) PO SCH (09:53)
[2021-09-10] MEDS: ASPIRIN 81 MG CHEW TABLET PO SCH (09:53)
[2021-09-10] MEDS: sulfaSALAzine 500 MG TABEC PO SCH ×2 (09:53→21:12)
[2021-09-10] MEDS: levETIRAcetam 250MG TABLET (KEPPRA) PO SCH ×2 (09:53→21:12)
[2021-09-10] MEDS: MIRTAZAPINE 15 MG TAB PO SCH (09:54)
[2021-09-10] MEDS: SERTRALINE HCL 25 MG TABLET PO SCH (09:54)
[2021-09-10] MEDS: predniSONE 5 MG TAB PO SCH (09:54)
[2021-09-10] MEDS: HYDROXYCHLOROQUINE 200 MG TAB PO SCH ×2 (09:54→21:13)
--- NOTE | 2021-09-10 12:03 | IPNPDOC ---
Date Seen The patient was seen on 09/10/21. Progress Note SUBJECTIVE: Patient seen examined at bedside. He appears to be alert to person and place. He is much more active today, he tells me his sister's name correctly. per RN, neuro checks have been unremarkable. Had diarrhea this morning, foul smelling. Patient tells me he had 3 loose BMs yesterday as well. C diff PCR +. OBJECTIVE PHYSICAL EXAMINATION: VITAL SIGNS: please see below General: NAD, comfortable HEENT: PERRLA, EOMI, sclerae clear Neck: supple, normal ROM, no JVD Respiratory: lungs CTAB, no wheeze, no rales, no crackles CVS: RRR, normal S1, S2, no murmurs Abdo: soft, no masses, no hepatosplenomegaly, BS+, no rebound tenderness Extremities: no edema, pulses 2+ MSK: no joint deformities, normal ROM Neuro: no focal neuro deficits, moving all 4 extremities, CN2-12 intact. Strength 4+ out of 5 on the left upper and lower extremity. Hemiplegia on the right side. Aphasia. Right-sided facial droop. Psych: calm, cooperative, AAO x 3 LABORATORY DATA, IMAGING STUDIES, MICROBIOLOGY: Please see below. DVT prophylaxis ordered?: TEDs. Sánchez ASSESSMENT AND PLAN:his is a 66 y/o male with a pmh of hemorrhagic cva in 08/05, rheumatoid arthritis, htn, gerd, depression/anxiety who presents to our ED from [facility] on 09/06 for evaluation of an episode of decreased consc iousness and shaking that was observed by staff there. PROBLEMS: 1. Possible Seizure Activity - I spoke to Dr. Dooley. S/p 1000 mg IV keppra in ER. No recommendation for EEG. To c/w keppra 750 mg BID. N - referral for outpatient neurology - CT Head performed in the ED showing no acute changes - c/w keppra 750mg bid - Neurochecks q4 have been unremarkable. - ST borden completed - repeat CT head 09/07/21 is unchanged - patient did have an isolated episode of rapid eye lid movement/eye movement, which stopped upon prompting patient. - I d/w with Miah, it is possible that patient is having mild seizures vs this being a behavioural process vs subclinical seizures. He will likely require a video EEG on an outpatient basis. At this time, neurology feels he is safe for DC to [facility] and will be following up with him in clinic. 2. Severe aphasia - 2/2 recent hemorrhagic cva - ST eval, aspiration precautions 3. RA - continue plaquenil, sulfasalazine, low dose prednisone 4. HTN - reduce dose of amlodipine to 5 mg daily - patient sister reports that he had an episode of hypotension upon repositioning - perhaps this was due to orthostasis from sitting to supine - we will check orthostats - applied compression stocking 5. GERD - continue protonix 6. Depression/anxiety - continue sertraline, mirtazapine 7. Paraphimosis - RN called to inform me that the gland penis is very swollen - noted to have foreskin greatly swollen and retracted, I suspect it was replaced after carlson catheter insertion - Dr. Adler from urology came to bedside and was successful in restoring for eskin over glans penis - we will DC carlson cath. Trial of void, PVR ordered. 8. C diff positive - first known occurence - started on dificid 200 mg BID, due to lower reported rates of recurrence vs PO vancomycin Dispo: [facility]. VS, I&O, 24H, Fishbone Vital Signs/I&O Vital Signs Date Time Temp Pulse Resp B/P (MAP) Pulse Ox O2 Delivery O2 Flow Rate FiO2 09/10/21 09:00 94/60 09/10/21 06:00 97.4 69 18 94 Room Air I&O- Last 24 Hours up to 6 AM 09/10/21 06:00 Intake Total 1080 ml Output Total 675 ml Balance 405 ml Laboratory Data 24H LABS Laboratory Tests 2 09/10/21 05:45: Immature Granulocyte % (Auto) 3.0, Neutrophils (%) (Auto) 49.5, Lymphocytes (%) (Auto) 27.4, Monocytes (%) (Auto) 13.8H, Eosinophils (%) (Auto) 4.7H, Basophils (%) (Auto) 1.6H, Neutrophils # (Auto) 4.2, Lymphocytes # (Auto) 2.3, Monocytes # (Auto) 1.2H, Eosinophils # (Auto) 0.4, Basophils # (Auto) 0.1, Nucleated Red Blood Cells % (auto) 0.0, Anion Gap 5L, Glomerular Filtration Rate > 60.0, Calcium Level 8.2L 09/10/21 08:53: CBC/BMP Laboratory Tests 09/10/21 05:45 Microbiology Microbiology 09/06/21 Respiratory Virus Panel (PCR) (VIDYA) - Final, Complete 09/06/21 Blood Culture - Preliminary, Resulted No Growth after 72 hours. All specime... 09/06/21 Blood Culture - Preliminary, Resulted No Growth after 72 hours. All specime... HEATHER VENEGAS MD Sep 10, 2021 12:03
[2021-09-10 12:04] LABS: CLOSTRIDIUM DIFFICILE PCR POSITIVE (NEGATIVE)
[2021-09-10] MEDS: ENOXAPARIN 40MG/0.4ML SYRINGE (J1650 PER 10MG) SC SCH (12:51)
[2021-09-10] MEDS: FIDAXOMICIN 200 MG TAB (DIFICID) PO SCH ×2 (14:00→22:39)
[2021-09-10 20:00] VITALS: BP 116/76
[2021-09-11 06:00] VITALS: BP 124/63
[2021-09-11 06:10] LABS: BASO # 0.1 10^3/uL (0.0-0.2); BASO % 1.7 % (0.0-1.0); EOS # 0.6 10^3/uL (0.0-0.5); EOS % 6.5 % (0.0-3.0); HEMATOCRIT 35.3 % (42.0-52.0); HEMOGLOBIN 11.3 g/dl (13.5-17.5); LYMPH # 2.3 10^3/uL (1.5-5.0); LYMPH % 27.3 % (24.0-44.0); MEAN CORPUSCULAR HEMOGLOBIN 31.4 pg (27.0-33.0); MEAN CORPUSCULAR VOLUME 98.1 fl (80.0-96.0); MONO # 1.1 10^3/uL (0.0-0.8); MONO % 12.5 % (2.0-8.0); NEUTROPHILS % 47.4 % (36.0-66.0); PLATELET COUNT, AUTOMATED 232 10^3/uL (150-450); WHITE BLOOD COUNT 8.4 10^3/uL (4.0-10.0)
[2021-09-11 06:31] LABS: BLOOD UREA NITROGEN 14 MG/DL (7-18); CALCIUM LEVEL 8.6 MG/DL (8.8-10.2); CARBON DIOXIDE LEVEL 28 MEQ/L (21-32); CHLORIDE LEVEL 108 MEQ/L (98-107); CREATININE FOR GFR 0.93 MG/DL (0.70-1.30); GLOMERULAR FILTRATION RATE > 60.0 (>49); GLUCOSE, FASTING 85 MG/DL (70-100); POTASSIUM SERUM 4.2 MEQ/L (3.5-5.1); SODIUM LEVEL 140 MEQ/L (136-145)
[2021-09-11] MEDS ORDERED: VANC125C3 PO (08:31)
[2021-09-11] MEDS ORDERED: PROB250C PO (08:32)
[2021-09-11] MEDS: SENNA 8.6 MG TAB (SENOKOT) PO SCH (09:00)
[2021-09-11] MEDS: levETIRAcetam 250MG TABLET (KEPPRA) PO SCH (09:45)
[2021-09-11] MEDS: predniSONE 5 MG TAB PO SCH (09:45)
[2021-09-11] MEDS: ASPIRIN 81 MG CHEW TABLET PO SCH (09:45)
[2021-09-11] MEDS: SERTRALINE HCL 25 MG TABLET PO SCH (09:45)
[2021-09-11] MEDS: MIRTAZAPINE 15 MG TAB PO SCH (09:45)
[2021-09-11] MEDS: sulfaSALAzine 500 MG TABEC PO SCH (09:45)
[2021-09-11] MEDS: HYDROXYCHLOROQUINE 200 MG TAB PO SCH (09:45)
[2021-09-11] MEDS: FIDAXOMICIN 200 MG TAB (DIFICID) PO SCH (09:45)
[2021-09-11] MEDS: PANTOPRAZOLE 40MG TAB (PROTONIX) PO SCH (09:47)
[2021-09-11 09:48] VITALS: BP 142/80
[2021-09-11] MEDS: ENOXAPARIN 40MG/0.4ML SYRINGE (J1650 PER 10MG) SC SCH (09:48)
--- NOTE | 2021-09-11 18:54 | IPNPDOC ---
Date Seen The patient was seen on 09/11/21. Progress Note SUBJECTIVE: No acute events overnight. Patient denies increased weakness, lightheadedness, fevers, chills, shortness of breath or chest pain. PHYSICAL EXAMINATION: VITAL SIGNS: please see below General: NAD, comfortable HEENT: PERRLA, EOMI, sclerae clear Neck: supple, normal ROM, no JVD Respiratory: lungs CTAB, no wheeze, no rales, no crackles CVS: RRR, normal S1, S2, no murmurs Abdo: soft, no masses, no hepatosplenomegaly, BS+, no rebound tenderness Extremities: no edema, pulses 2+ MSK: no joint deformities, normal ROM Neuro: no focal neuro deficits, moving all 4 extremities, CN2-12 intact. Strength 4+ out of 5 on the left upper and lower extremity. Hemiplegia on the right side. Aphasia. Right-sided facial droop with numbness- not new . Psych: calm, cooperative, AAO x 2-3 LABORATORY DATA: Please see below. ASSESSMENT AND PLAN: 66 y/o male with a pmh of hemorrhagic cva in 08/05, rheumatoid arthritis, htn, gerd, depression/anxiety who presents to our ED from [facility] on 09/06 for evaluation of an episode of decreased consciousness and shaking that was observed by staff there. 1. Possible Seizure Activity - No seizure activity overnight - Prior hospitalist spoke to Dr. Dooley. S/p 1000 mg IV keppra in ER. No recommendation for EEG. To c/w keppra 750 mg BID. - referral for outpatient neurology - CT Head performed in the ED showing no acute changes - c/w keppra 750mg bid - Neurochecks q4 have been unremarkable. - ST eval completed - repeat CT head 09/07/21 is unchanged - patient did have an isolated episode of rapid eye lid movement/eye movement, which stopped upon prompting patient. - I d/w with Miah, it is possible that patient is having mild seizures vs this being a behavioral process vs subclinical seizures. He will likely require a video EEG on an outpatient basis. At this time, neurology feels he is safe for DC to [facility] and will be following up with him in clinic. 2. Severe aphasia - 2/2 recent hemorrhagic cva - ST eval, aspiration precautions 3. RA - continue plaquenil, sulfasalazine, low dose prednisone 4. HTN - reduce dose of amlodipine to 5 mg daily - patient sister reports that he had an episode of hypotension upon repositioning - perhaps this was due to orthostasis from sitting to supine - we will check orthostats - applied compression stocking 5. GERD - continue protonix 6. Depression/anxiety - continue sertraline, mirtazapine 7. Paraphimosis - Improving - noted to have foreskin greatly swollen and retracted, I suspect it was replaced after carlson catheter insertion - Dr. Adler from urology came to bedside and was successful in restoring foreskin over glans penis - we will DC carlson cath. Trial of void, PVR successful DISPOSITION: Discharging today to [facility] for rehabilitation and nursing. VS, I&O, 24H, Kvngbonverena Vital Signs/I&O Vital Signs Date Time Temp Pulse Resp B/P (MAP) Pulse Ox O2 Delivery O2 Flow Rate FiO2 09/11/21 09:48 142/80 09/11/21 06:00 97.5 65 18 94 Room Air I&O- Last 24 Hours up to 6 AM 09/11/21 06:00 Intake Total 1427 ml Output Total 400 ml Balance 1027 ml Laboratory Data 24H LABS Laboratory Tests 2 09/11/21 05:32: Immature Granulocyte % (Auto) 4.6H, Neutrophils (%) (Auto) 47.4, Lymphocytes (%) (Auto) 27.3, Monocytes (%) (Auto) 12.5H, Eosinophils (%) (Auto) 6.5H, Basophils (%) (Auto) 1.7H, Neutrophils # (Auto) 4.0, Lymphocytes # (Auto) 2.3, Monocytes # (Auto) 1.1H, Eosinophils # (Auto) 0.6H, Basophils # (Auto) 0.1, Nucleated Red Blood Cells % (auto) 0.0, Anion Gap 4L, Glomerular Filtration Rate > 60.0, Calcium Level 8.6L CBC/BMP Laboratory Tests 09/11/21 05:32 Microbiology Microbiology 09/06/21 Respiratory Virus Panel (PCR) (VIDYA) - Final, Complete 09/06/21 Blood Culture - Final, Complete NO GROWTH AFTER 5 DAYS 09/06/21 Blood Culture - Final, Complete NO GROWTH AFTER 5 DAYS Tosin Meng MD Sep 11, 2021 18:54
== END 2021-09-11 14:58 ==
LOC: M ED 14:08 → M ED INP 14:09 → INTOOBSV 18:36 → UNDOADMOB 18:36 → M ED INP 18:36 → ENRESERV 20:26 → M ED INP 21:30 → M PCU 21:30 → M MSPAV 09-07 16:55 → M PCU 09-07 16:55 → UNDODISOB 09-11 14:58
PROVIDERS: ADMIT Internal Medicine; ATTEND Internal Medicine
DX: G40.89 Other seizures (principal); I69.320 Aphasia following cerebral infarction; M06.9 Rheumatoid arthritis, unspecified; I10 Essential (primary) hypertension; K21.9 Gastro-esophageal reflux disease without esophagitis; F41.9 Anxiety disorder, unspecified; F32.9 Major depressive disorder, single episode, unspecified; N47.2 Paraphimosis; Z79.82 Long term (current) use of aspirin; Z79.52 Long term (current) use of systemic steroids; Z79.899 Other long term (current) drug therapy; F03.90 Unspecified dementia, unspecified severity, without behavioral disturbance, psychotic disturbance, mood disturbance, and anxiety; Z88.0 Allergy status to penicillin
CPT/HCPCS: 36415; 70450; 71045; 76775; 76857; 80048; 80076; 80180; 81001; 82140; 82550; 83605; 83930; 84146; 84443; 84484; 85025; 87040; 87493; 87798; 92526; 92610; 93005; 93041; 94760; 96361; 96365; 96366; 97110; 97112; 97161; 97530; 99285; G0378; J1650; J1953; J7512; U0002

== ENCOUNTER 2021-09-18 12:56 | Inpatient (IN) | payer MEDICARE ==
[~2021-09-18] VITALS: Ht 172.7 cm; Wt 80.0 kg
[~2021-09-18 12:56] MED LIST changes: +AMLO1TAB24 PO; +AMLO1TAB25 PO; +ASPI81CH33 PO; +KEPP1TAB2 PO; +LISI20TA33 PO; +META28.32 PO; +PROB250C PO; +PROTPAK PO; +REME15TA2 PO; +SENN-80 PO; +SERT25TA85 PO; +SULF500T2 PO; +VANC125C3 PO; +[UNRECOGNIZED DRUG - CODE] IV
[2021-09-18 13:49] LABS: VENOUS BASE EXCESS -1.2 (-2.0-2.0); VENOUS HCO3 25.5 MEQ/L (23.0-27.0); VENOUS O2 SATURATION 45.8 % (60.0-80.0); VENOUS PARTIAL PRESSURE O2 27.7 mmHg (30.0-50.0); VENOUS PH 7.317 UNITS (7.330-7.430); VENOUS STANDARD HCO3 22.4 MEQ/L; VENOUS TOTAL CO2 27.1 MEQ/L (24.0-28.0)
[2021-09-18] MEDS ORDERED: ACETAMINOPHEN 650 MG SUPP PR ONE (13:50)
[2021-09-18 13:53] LABS: HEMATOCRIT 37.9 % (42.0-52.0); HEMOGLOBIN 12.1 g/dl (13.5-17.5); MEAN CORPUSCULAR HEMOGLOBIN 30.9 pg (27.0-33.0); MEAN CORPUSCULAR HGB CONC 31.9 g/dl (32.0-36.5); MEAN CORPUSCULAR VOLUME 96.7 fl (80.0-96.0); PLATELET COUNT, AUTOMATED 349 10^3/uL (150-450); RED BLOOD COUNT 3.92 10^6/uL (4.30-6.10)
[2021-09-18 14:15] LABS: OSMOLALITY SERUM 290 MOSM/KG (280-301)
[2021-09-18 14:27] LABS: ALBUMIN 2.6 GM/DL (3.2-5.2); ALT/SGPT 116 U/L (12-78); BILIRUBIN,DIRECT 0.3 MG/DL (0.0-0.2); BILIRUBIN,TOTAL 0.5 MG/DL (0.2-1.0); BLOOD UREA NITROGEN 22 MG/DL (7-18); CALCIUM LEVEL 8.5 MG/DL (8.8-10.2); CARBON DIOXIDE LEVEL 29 MEQ/L (21-32); CHLORIDE LEVEL 100 MEQ/L (98-107); CREATININE FOR GFR 0.93 MG/DL (0.70-1.30); GLOMERULAR FILTRATION RATE > 60.0 (>49); GLUCOSE, FASTING 114 MG/DL (70-100); POTASSIUM SERUM 4.4 MEQ/L (3.5-5.1); SODIUM LEVEL 134 MEQ/L (136-145); TOTAL PROTEIN 6.7 GM/DL (6.4-8.2)
[2021-09-18 14:29] LABS: ATYPICAL LYMPH 2 % (0-5); EOSINOPHILS 5 % (0-3); LYMPHOCYTES 2 % (16-44); METAMYELOCYTES 2 % (0-0); MONOCYTES 10 % (0-5); MYELOCYTES 2 % (0-0); NEUTROPHILS 73 % (28-66)
[2021-09-18 14:30] LABS: PLATELET ESTIMATE NORMAL (NORMAL)
[2021-09-18] MEDS ORDERED: LIDOCAINE 2% 5ML JELLY UROJET TOP ONE (14:45)
[2021-09-18 14:55] LABS: ABG BASE EXCESS -0.5 (-2.0-2.0); ABG HCO3 22.6 MEQ/L (22.0-26.0); ABG PARTIAL PRESSURE CO2 32.2 mmHg (35.0-45.0); ABG TOTAL CO2 23.6 MEQ/L (23.0-31.0); ABG pH (ARTERIAL) 7.464 UNITS (7.350-7.450)
[2021-09-18] MEDS ORDERED: LevoFLOXacin IV 750 MG in IV 1 EA IV ONE (16:00)
[2021-09-18] MEDS ORDERED: ACETAMINOPHEN TAB 650MG DOSE (2X325MG) PO PRN (16:20)
[2021-09-18 16:34] LABS: RSV AMPLIFICATION NEGATIVE (NEGATIVE)
[2021-09-18] MEDS ORDERED: NS 1,000 ML IV ONE (18:25)
[2021-09-18] MEDS ORDERED: MIRT1TAB15 PO (19:37)
[2021-09-18] MEDS ORDERED: VANC125C3 PO (19:37)
[2021-09-18] MEDS ORDERED: SERT25TA21 PO (19:37)
[2021-09-18] MEDS ORDERED: PRED5TA PO (19:37)
[2021-09-18] MEDS ORDERED: SENN-80 PO (19:37)
[2021-09-18] MEDS ORDERED: AMLO1TAB24 PO (19:37)
[2021-09-18] MEDS ORDERED: LEFL1TAB4 PO (19:37)
[2021-09-18] MEDS ORDERED: PLAQ200T4 PO (19:37)
[2021-09-18] MEDS ORDERED: SULF500T2 PO (19:37)
[2021-09-18] MEDS ORDERED: ASPI1CHW3 PO (19:37)
[2021-09-18] MEDS ORDERED: KEPP1TAB2 PO (19:37)
[2021-09-18] MEDS ORDERED: LISI20TA33 PO (19:37)
[2021-09-18] MEDS ORDERED: META28.32 PO (19:37)
[2021-09-18] MEDS ORDERED: PROB250C PO (19:37)
[2021-09-18] MEDS ORDERED: PROTPAK PO (19:37)
[2021-09-18] MEDS ORDERED: MIRT-62 PO (19:44)
[2021-09-18] MEDS ORDERED: HOME MED LIST COMPLETE! XX SCH (19:45)
[2021-09-18] MEDS: NS 1,000 ML IV SCH (19:49)
[2021-09-18] MEDS ORDERED: PILL CUTTER 1 EACH XX ONE (23:42)
[2021-09-19] MEDS: MIRTAZAPINE 15 MG TAB PO SCH ×2 (00:03→23:02)
[2021-09-19] MEDS: THIAMINE 200MG 2ML VIAL IV SCH ×2 (00:03→09:24)
[2021-09-19] MEDS: MEROPENEM INJ 1 GM in IV 1 EA IV SCH ×4 (00:03→20:06)
[2021-09-19] MEDS: levETIRAcetam 250MG TABLET (KEPPRA) PO SCH ×3 (00:03→23:02)
[2021-09-19] MEDS: LACTOBACILLUS ACIDOPHILUS CAP (BACID) PO SCH ×3 (00:03→18:47)
[2021-09-19 01:05] VITALS: BP 117/75
[2021-09-19] MEDS: FIDAXOMICIN 200 MG TAB (DIFICID) PO SCH ×3 (04:02→23:02)
[2021-09-19] MEDS: NS 1,000 ML IV SCH ×3 (04:02→20:05)
[2021-09-19 06:00] VITALS: BP 124/65
[2021-09-19 06:43] LABS: HEMATOCRIT 32.3 % (42.0-52.0); HEMOGLOBIN 10.3 g/dl (13.5-17.5); MEAN CORPUSCULAR HEMOGLOBIN 30.8 pg (27.0-33.0); MEAN CORPUSCULAR HGB CONC 31.9 g/dl (32.0-36.5); MEAN CORPUSCULAR VOLUME 96.7 fl (80.0-96.0); PLATELET COUNT, AUTOMATED 293 10^3/uL (150-450); RED BLOOD COUNT 3.34 10^6/uL (4.30-6.10); WHITE BLOOD COUNT 10.3 10^3/uL (4.0-10.0)
[2021-09-19 07:16] LABS: BLOOD UREA NITROGEN 21 MG/DL (7-18); CALCIUM LEVEL 7.9 MG/DL (8.8-10.2); CARBON DIOXIDE LEVEL 25 MEQ/L (21-32); CHLORIDE LEVEL 106 MEQ/L (98-107); CREATININE FOR GFR 0.77 MG/DL (0.70-1.30); GLOMERULAR FILTRATION RATE > 60.0 (>49); GLUCOSE, FASTING 96 MG/DL (70-100); POTASSIUM SERUM 4.1 MEQ/L (3.5-5.1); SODIUM LEVEL 137 MEQ/L (136-145)
[2021-09-19] MEDS ORDERED: amLODIPine 5 MG TAB PO SCH (09:00)
[2021-09-19] MEDS: predniSONE 5 MG TAB PO SCH (09:23)
[2021-09-19] MEDS: SERTRALINE HCL 25 MG TABLET PO SCH (09:24)
[2021-09-19] MEDS: PANTOPRAZOLE 40MG TAB (PROTONIX) PO SCH (09:24)
[2021-09-19 22:00] VITALS: BP 121/65
[2021-09-20] MEDS: MEROPENEM INJ 1 GM in IV 1 EA IV SCH ×3 (04:07→20:11)
[2021-09-20] MEDS: NS 1,000 ML IV SCH ×2 (04:07→14:53)
[2021-09-20 06:00] VITALS: BP 123/66
[2021-09-20 06:45] LABS: HEMATOCRIT 31.5 % (42.0-52.0); MEAN CORPUSCULAR HEMOGLOBIN 30.8 pg (27.0-33.0); MEAN CORPUSCULAR HGB CONC 31.7 g/dl (32.0-36.5); MEAN CORPUSCULAR VOLUME 96.9 fl (80.0-96.0); PLATELET COUNT, AUTOMATED 309 10^3/uL (150-450); RED BLOOD COUNT 3.25 10^6/uL (4.30-6.10); WHITE BLOOD COUNT 10.6 10^3/uL (4.0-10.0)
[2021-09-20 07:01] LABS: BLOOD UREA NITROGEN 16 MG/DL (7-18); CALCIUM LEVEL 7.9 MG/DL (8.8-10.2); CARBON DIOXIDE LEVEL 25 MEQ/L (21-32); CHLORIDE LEVEL 107 MEQ/L (98-107); CREATININE FOR GFR 0.77 MG/DL (0.70-1.30); GLOMERULAR FILTRATION RATE > 60.0 (>49); GLUCOSE, FASTING 91 MG/DL (70-100); POTASSIUM SERUM 3.9 MEQ/L (3.5-5.1); SODIUM LEVEL 136 MEQ/L (136-145)
[2021-09-20] MEDS: LACTOBACILLUS ACIDOPHILUS CAP (BACID) PO SCH ×2 (09:58→18:15)
[2021-09-20] MEDS: PANTOPRAZOLE 40MG TAB (PROTONIX) PO SCH (09:58)
[2021-09-20] MEDS: FIDAXOMICIN 200 MG TAB (DIFICID) PO SCH ×2 (09:58→20:11)
[2021-09-20] MEDS: levETIRAcetam 250MG TABLET (KEPPRA) PO SCH ×2 (09:58→20:11)
[2021-09-20] MEDS: predniSONE 5 MG TAB PO SCH (09:58)
[2021-09-20] MEDS: SERTRALINE HCL 25 MG TABLET PO SCH (09:59)
[2021-09-20] MEDS: THIAMINE 200MG 2ML VIAL IV SCH (09:59)
[2021-09-20] MEDS ORDERED: E-Z-PAQUE 96% w/w SUSP 176GM BTL As Ordered ONE (13:15)
[2021-09-20] MEDS ORDERED: VARIBAR NECTAR 40% w/v 240ML SUSP BTL As Ordered ONE (13:15)
[2021-09-20] MEDS ORDERED: VARIBAR PUDDING 40% w/v 230ML TUBE As Ordered ONE (13:15)
[2021-09-20] MEDS ORDERED: BARIUM SULFATE 700 MG TABLET (E-Z-DISK) As Ordered ONE (13:16)
[2021-09-20 14:00] VITALS: BP 121/68
[2021-09-20] MEDS: MIRTAZAPINE 15 MG TAB PO SCH (20:12)
[2021-09-20 22:00] VITALS: BP 125/69
[2021-09-21] MEDS: NS 1,000 ML IV SCH (01:35)
[2021-09-21] MEDS: MEROPENEM INJ 1 GM in IV 1 EA IV SCH (04:09)
[2021-09-21 06:15] VITALS: BP 121/68
[2021-09-21 06:18] LABS: HEMATOCRIT 29.4 % (42.0-52.0); HEMOGLOBIN 9.4 g/dl (13.5-17.5); MEAN CORPUSCULAR HEMOGLOBIN 30.5 pg (27.0-33.0); MEAN CORPUSCULAR VOLUME 95.5 fl (80.0-96.0); PLATELET COUNT, AUTOMATED 322 10^3/uL (150-450); RED BLOOD COUNT 3.08 10^6/uL (4.30-6.10); WHITE BLOOD COUNT 12.4 10^3/uL (4.0-10.0)
[2021-09-21 06:36] LABS: BLOOD UREA NITROGEN 12 MG/DL (7-18); CALCIUM LEVEL 7.7 MG/DL (8.8-10.2); CARBON DIOXIDE LEVEL 25 MEQ/L (21-32); CHLORIDE LEVEL 108 MEQ/L (98-107); CREATININE FOR GFR 0.68 MG/DL (0.70-1.30); GLOMERULAR FILTRATION RATE > 60.0 (>49); GLUCOSE, FASTING 88 MG/DL (70-100); POTASSIUM SERUM 3.8 MEQ/L (3.5-5.1); SODIUM LEVEL 138 MEQ/L (136-145)
[2021-09-21] MEDS: LACTOBACILLUS ACIDOPHILUS CAP (BACID) PO SCH ×2 (09:48→17:05)
[2021-09-21] MEDS: SERTRALINE HCL 25 MG TABLET PO SCH (09:48)
[2021-09-21] MEDS: levETIRAcetam 250MG TABLET (KEPPRA) PO SCH ×2 (09:49→20:50)
[2021-09-21] MEDS: THIAMINE 200MG 2ML VIAL IV SCH (09:50)
[2021-09-21] MEDS: predniSONE 5 MG TAB PO SCH (09:50)
[2021-09-21] MEDS: FIDAXOMICIN 200 MG TAB (DIFICID) PO SCH ×2 (09:50→20:47)
[2021-09-21] MEDS: PANTOPRAZOLE 40MG TAB (PROTONIX) PO SCH (09:50)
[2021-09-21 14:00] VITALS: BP 121/67
[2021-09-21] MEDS: LevoFLOXacin 750 MG TABLET PO SCH (14:39)
[2021-09-21] MEDS: metroNIDAZOLE (FLAGYL) 500MG TABLET PO SCH ×2 (17:04→20:50)
[2021-09-21 18:08] LABS: BODY FLUID CULTURE Not indicated. (.); LEGIONELLA ANTIGEN URINE Negative (Negative); ORGANISM ID Not indicated. (.); SPECIMEN SOURCE Urine (.); URINE STREP PNEUMONIAE ANTIGEN Negative (Negative)
[2021-09-21 20:00] VITALS: BP 117/65
[2021-09-21] MEDS: MIRTAZAPINE 15 MG TAB PO SCH (20:50)
[2021-09-22] MEDS: LevoFLOXacin 750 MG TABLET PO SCH (05:41)
[2021-09-22 06:00] VITALS: BP 121/73
[2021-09-22 06:44] LABS: HEMATOCRIT 30.2 % (42.0-52.0); HEMOGLOBIN 9.7 g/dl (13.5-17.5); MEAN CORPUSCULAR HEMOGLOBIN 30.7 pg (27.0-33.0); MEAN CORPUSCULAR HGB CONC 32.1 g/dl (32.0-36.5); MEAN CORPUSCULAR VOLUME 95.6 fl (80.0-96.0); PLATELET COUNT, AUTOMATED 326 10^3/uL (150-450); RED BLOOD COUNT 3.16 10^6/uL (4.30-6.10); WHITE BLOOD COUNT 11.5 10^3/uL (4.0-10.0)
[2021-09-22 06:56] LABS: BLOOD UREA NITROGEN 11 MG/DL (7-18); CALCIUM LEVEL 7.8 MG/DL (8.8-10.2); CARBON DIOXIDE LEVEL 26 MEQ/L (21-32); CHLORIDE LEVEL 107 MEQ/L (98-107); CREATININE FOR GFR 0.61 MG/DL (0.70-1.30); GLOMERULAR FILTRATION RATE > 60.0 (>49); GLUCOSE, FASTING 93 MG/DL (70-100); POTASSIUM SERUM 4.1 MEQ/L (3.5-5.1); SODIUM LEVEL 139 MEQ/L (136-145)
[2021-09-22] MEDS: PANTOPRAZOLE 40MG TAB (PROTONIX) PO SCH (09:50)
[2021-09-22] MEDS: predniSONE 5 MG TAB PO SCH (09:54)
[2021-09-22] MEDS: THIAMINE 200MG 2ML VIAL IV SCH (09:54)
[2021-09-22] MEDS: FIDAXOMICIN 200 MG TAB (DIFICID) PO SCH ×2 (09:54→20:24)
[2021-09-22] MEDS: SERTRALINE HCL 25 MG TABLET PO SCH (09:54)
[2021-09-22] MEDS: LACTOBACILLUS ACIDOPHILUS CAP (BACID) PO SCH ×2 (09:54→17:20)
[2021-09-22] MEDS: metroNIDAZOLE (FLAGYL) 500MG TABLET PO SCH ×3 (09:55→20:23)
[2021-09-22] MEDS: levETIRAcetam 250MG TABLET (KEPPRA) PO SCH ×2 (09:55→20:24)
[2021-09-22] MEDS: OMEPRAZOLE 20 MG CAP PO SCH (11:36)
[2021-09-22 14:00] VITALS: BP 112/62
[2021-09-22] MEDS: MIRTAZAPINE 15 MG TAB PO SCH (20:23)
[2021-09-22 22:00] VITALS: BP 140/79
[2021-09-23 02:00] VITALS: BP 114/70
[2021-09-23] MEDS: LevoFLOXacin 750 MG TABLET PO SCH (05:21)
[2021-09-23 06:00] VITALS: BP 116/70
[2021-09-23 06:29] LABS: MEAN CORPUSCULAR HEMOGLOBIN 30.6 pg (27.0-33.0); MEAN CORPUSCULAR HGB CONC 32.3 g/dl (32.0-36.5); MEAN CORPUSCULAR VOLUME 94.8 fl (80.0-96.0); PLATELET COUNT, AUTOMATED 412 10^3/uL (150-450); RED BLOOD COUNT 3.27 10^6/uL (4.30-6.10)
[2021-09-23 06:48] LABS: BLOOD UREA NITROGEN 11 MG/DL (7-18); CALCIUM LEVEL 8.3 MG/DL (8.8-10.2); CARBON DIOXIDE LEVEL 26 MEQ/L (21-32); CHLORIDE LEVEL 106 MEQ/L (98-107); CREATININE FOR GFR 0.71 MG/DL (0.70-1.30); GLOMERULAR FILTRATION RATE > 60.0 (>49); GLUCOSE, FASTING 96 MG/DL (70-100); POTASSIUM SERUM 3.6 MEQ/L (3.5-5.1); SODIUM LEVEL 139 MEQ/L (136-145)
[2021-09-23] MEDS: SERTRALINE HCL 25 MG TABLET PO SCH (09:35)
[2021-09-23] MEDS: predniSONE 5 MG TAB PO SCH (09:35)
[2021-09-23] MEDS: metroNIDAZOLE (FLAGYL) 500MG TABLET PO SCH ×3 (09:35→20:44)
[2021-09-23] MEDS: levETIRAcetam 250MG TABLET (KEPPRA) PO SCH ×2 (09:35→20:44)
[2021-09-23] MEDS: FIDAXOMICIN 200 MG TAB (DIFICID) PO SCH ×2 (09:36→20:44)
[2021-09-23] MEDS: THIAMINE 100 MG TAB PO SCH (09:36)
[2021-09-23] MEDS: LACTOBACILLUS ACIDOPHILUS CAP (BACID) PO SCH ×2 (09:36→17:42)
[2021-09-23] MEDS: OMEPRAZOLE 20 MG CAP PO SCH (09:36)
[2021-09-23 14:00] VITALS: BP 114/71
[2021-09-23 20:02] VITALS: BP 112/70
[2021-09-23] MEDS: MIRTAZAPINE 15 MG TAB PO SCH (20:44)
[2021-09-24 05:11] VITALS: BP 114/69
[2021-09-24] MEDS: LevoFLOXacin 750 MG TABLET PO SCH (06:23)
[2021-09-24] MEDS: LACTOBACILLUS ACIDOPHILUS CAP (BACID) PO SCH ×3 (08:00→17:15)
[2021-09-24] MEDS: metroNIDAZOLE (FLAGYL) 500MG TABLET PO SCH ×3 (10:10→21:01)
[2021-09-24] MEDS: SERTRALINE HCL 25 MG TABLET PO SCH (10:10)
[2021-09-24] MEDS: OMEPRAZOLE 20 MG CAP PO SCH (10:10)
[2021-09-24] MEDS: FIDAXOMICIN 200 MG TAB (DIFICID) PO SCH ×2 (10:10→21:01)
[2021-09-24] MEDS: THIAMINE 100 MG TAB PO SCH (10:11)
[2021-09-24] MEDS: predniSONE 5 MG TAB PO SCH (10:11)
[2021-09-24] MEDS: levETIRAcetam 250MG TABLET (KEPPRA) PO SCH ×2 (10:11→21:01)
[2021-09-24 14:00] VITALS: BP 111/72
[2021-09-24 16:17] LABS: MEAN CORPUSCULAR HEMOGLOBIN 30.8 pg (27.0-33.0); MEAN CORPUSCULAR HGB CONC 32.4 g/dl (32.0-36.5); MEAN CORPUSCULAR VOLUME 95.2 fl (80.0-96.0); PLATELET COUNT, AUTOMATED 456 10^3/uL (150-450); RED BLOOD COUNT 3.57 10^6/uL (4.30-6.10); WHITE BLOOD COUNT 14.3 10^3/uL (4.0-10.0)
[2021-09-24 16:36] LABS: EOSINOPHILS 7 % (0-3); LYMPHOCYTES 7 % (16-44); METAMYELOCYTES 2 % (0-0); MONOCYTES 2 % (0-5); MYELOCYTES 4 % (0-0); NEUTROPHILS 75 % (28-66); PLATELET ESTIMATE NORMAL (NORMAL)
[2021-09-24 16:43] LABS: BLOOD UREA NITROGEN 12 MG/DL (7-18); CARBON DIOXIDE LEVEL 28 MEQ/L (21-32); CHLORIDE LEVEL 105 MEQ/L (98-107); CREATININE FOR GFR 0.79 MG/DL (0.70-1.30); GLOMERULAR FILTRATION RATE > 60.0 (>49); GLUCOSE, FASTING 136 MG/DL (70-100); MAGNESIUM LEVEL 1.9 MG/DL (1.8-2.4); POTASSIUM SERUM 4.5 MEQ/L (3.5-5.1); SODIUM LEVEL 139 MEQ/L (136-145)
[2021-09-24] MEDS ORDERED: METR-265 PO (18:43)
[2021-09-24] MEDS ORDERED: LEVO750T13 PO (18:43)
[2021-09-24] MEDS: MIRTAZAPINE 15 MG TAB PO SCH (21:01)
[2021-09-24 21:32] VITALS: BP 111/70
[2021-09-24 22:00] VITALS: BP 111/70
[2021-09-25 05:31] VITALS: BP 121/77
[2021-09-25] MEDS: LevoFLOXacin 750 MG TABLET PO SCH (05:49)
[2021-09-25] MEDS: predniSONE 5 MG TAB PO SCH (08:17)
[2021-09-25] MEDS: metroNIDAZOLE (FLAGYL) 500MG TABLET PO SCH (08:17)
[2021-09-25] MEDS: OMEPRAZOLE 20 MG CAP PO SCH (08:17)
[2021-09-25] MEDS: LACTOBACILLUS ACIDOPHILUS CAP (BACID) PO SCH (08:17)
[2021-09-25] MEDS: FIDAXOMICIN 200 MG TAB (DIFICID) PO SCH (08:17)
[2021-09-25] MEDS: levETIRAcetam 250MG TABLET (KEPPRA) PO SCH (08:18)
[2021-09-25] MEDS: SERTRALINE HCL 25 MG TABLET PO SCH (08:18)
[2021-09-25] MEDS: THIAMINE 100 MG TAB PO SCH (08:18)
== END 2021-09-25 08:43 | DRG 178 ==
LOC: M ED 12:56 → EDBD 12:56 → M ED INP 16:20 → M MSPAV 09-19 01:03
PROVIDERS: ADMIT Internal Medicine; ATTEND Internal Medicine
DX: J69.0 Pneumonitis due to inhalation of food and vomit (principal); I69.151 Hemiplegia and hemiparesis following nontraumatic intracerebral hemorrhage affecting right dominant side; A04.72 Enterocolitis due to Clostridium difficile, not specified as recurrent; N39.0 Urinary tract infection, site not specified; M06.9 Rheumatoid arthritis, unspecified; I10 Essential (primary) hypertension; K21.9 Gastro-esophageal reflux disease without esophagitis; F32.A Depression, unspecified; F41.9 Anxiety disorder, unspecified; Z90.49 Acquired absence of other specified parts of digestive tract; Z79.82 Long term (current) use of aspirin; Z79.52 Long term (current) use of systemic steroids; Z79.899 Other long term (current) drug therapy; Z20.822 Contact with and (suspected) exposure to COVID-19; Z88.0 Allergy status to penicillin; Z87.891 Personal history of nicotine dependence; Z79.2 Long term (current) use of antibiotics; I69.291 Dysphagia following other nontraumatic intracranial hemorrhage; B96.20 Unspecified Escherichia coli [E. coli] as the cause of diseases classified elsewhere; R56.9 Unspecified convulsions